=== PATIENT | female | born 1955 | race Caucasian/White ===

== ENCOUNTER 2020-10-16 15:32 | Emergency (ER) | payer OTHER, SELFPAY ==
[2020-10-16 15:50] VITALS: BP 119/68; PULSE 100; RESP 18; TEMP 36.9; O2SAT 98
[2020-10-16 15:51] VITALS: BP 119/68; PULSE 100; RESP 18; TEMP 36.9; O2SAT 98
--- NOTE | 2020-10-16 16:17 | ED.LOWEXIN ---
HPI - Extremity Injury (Lower) General Chief Complaint: Extremity Injury, Lower Stated Complaint: rt knee pain Time Seen by Provider: 10/16/20 16:08 Source: patient and RN notes reviewed Mode of arrival: ambulatory Limitations: no limitations History of Present Illness HPI Narrative: Patient presents today complaining of right knee pain since yesterday. Patient experienced severe right knee pain as she was kneeling on her bad. Denies any specific injury or trauma. Now, she has severe knee pain as she tries to bend her knee, especially when she is sitting down. Denies numbness or tingling. Pain is improved with extension. She currently rates her pain 2/10 and has been trying ice and icy hot without relief. She has tried no oral medication for symptoms. She cannot take NSAIDs due to decreased kidney function due to her diabetes. MD complaint: knee injury Related Data Home Medications Medication Instructions Recorded Confirmed albuterol sulfate INHALATION 10/16/20 alprazolam 10/16/20 aspirin [Aspirin Low Dose] 10/16/20 budesonide-formoterol [Symbicort] INHALATION 10/16/20 buspirone mg 10/16/20 calcium carbonate [Calcium 600] mg 10/16/20 cholecalciferol (vitamin D3) 10/16/20 [Vitamin D3] clopidogrel 10/16/20 doxycycline hyclate 10/16/20 duloxetine mg PO 10/16/20 fluoxetine mg 10/16/20 furosemide 10/16/20 glyburide mg 10/16/20 insulin glargine [Lantus Solostar SUBCUT 10/16/20 U-100 Insulin] levothyroxine 10/16/20 linaclotide [Linzess] mcg 10/16/20 lisinopril 10/16/20 multivitamin tablet 10/16/20 potassium chloride [Klor-Con M10] meq PO 10/16/20 simvastatin mg 10/16/20 torsemide mg 10/16/20 trazodone 10/16/20 zafirlukast mg 10/16/20 Allergies Allergy/AdvReac Type Severity Reaction Status Date / Time cephalexin [From Keflex] Allergy Unknown Verified 10/16/20 15:49 Review of Systems Review of Systems: CONSTITUTIONAL: Denies body aches, fever, chills, or sweats. EYES: Denies visual changes, redness, or discharge. ENT: Denies rhinorrhea, congestion, sore throat, or otalgia. CARDIOVASCULAR: Denies chest pain, palpitations, or edema. RESPIRATORY: Denies cough or dyspnea. GASTROINTESTINAL: Denies abdominal pain, nausea, vomiting, or diarrhea. GENITOURINARY: Denies dysuria or hematuria. SKIN: Denies rash, itching, or wounds. MUSCULOSKELETAL: Denies back pain, or myalgia.+ Right knee pain NEUROLOGIC: Denies headache, numbness, tingling, or weakness. PSYCH: Denies depression or anxiety. [facility] Past Medical History Medical History (Updated 10/16/20 @ 16:22 by Obdulia Fisher, [facility], ) Diabetes High cholesterol Hypothyroidism Comments At time of signature, I have reviewed and agree with nursing past medical, surgical, social and family history unless otherwise noted. Please see nursing chart for further information. There is no relevant family history pertinent to the presenting complaint Exam Narrative: GENERAL: Well-appearing, well-nourished, and in no acute distress. HEAD: Normocephalic, atraumatic. EYES: EOMI. No redness or drainage. Conjunctivae normal. ENT: Mucous membranes pink and moist. NECK: Normal AROM. CHEST: No respiratory distress. EXTREMITIES: Right knee: Tenderness with palpation of the patella and the medial and lateral joint lines. No edema noted. No erythema or ecchymosis noted. Pain with flexion. No pain with extension. Distal sensation intact. Capillary refill normal. Pedal pulse normal. SKIN: Warm, dry, no rash. Capillary refill normal. Normal skin turgor. NEURO: No focal deficits. Alert and oriented x3. Gait steady. PSYCH: Normal affect. No signs of depression or anxiety. Course Vital Signs Vital signs: Vital Signs Temperature 98.4 F 10/16/20 15:50 Pulse Rate 100 10/16/20 15:50 Respiratory Rate 18 10/16/20 15:50 Blood Pressure 119/68 10/16/20 15:50 Pulse Oximetry 98 10/16/20 15:50 Temperature 98.4 F
== END 2020-10-16 16:29 | disposition home or self-care (01) ==
PROVIDERS: Emergency Provider Nurse Practitioner
DX: M25.561 Pain in right knee (principal); E11.9 Type 2 diabetes mellitus without complications; E78.00 Pure hypercholesterolemia, unspecified; E03.9 Hypothyroidism, unspecified
CPT/HCPCS: 99202; G0463

== ENCOUNTER 2023-03-30 13:47 | Emergency (ER) | payer OTHER, SELFPAY ==
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
[2023-03-30 13:58] VITALS: BP 129/51; PULSE 77; RESP 18; TEMP 36.2; O2SAT 95
[2023-03-30 18:05] VITALS: BP 141/68; PULSE 74; RESP 18; TEMP 36.5; O2SAT 96
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
[2023-03-30 19:17] LABS: Basophils Percent Auto 0.6 % (0.2-1.2); Eosinophils Absolute Auto 0.2 K/mm3 (0-0.3); Eosinophils Percent Auto 2.5 % (0-4.4); Hematocrit 43.4 % (37.0-47.0); Hemoglobin 13.2 g/dL (12.0-15.0); Immature Granulocyte Absolute 0.05 K/mm3 (0.00-0.031); Immature Granulocyte Percent A 0.8 % (0-0.5); Lymphocytes Absolute Auto 1.28 K/mm3 (0.9-3.2); Lymphocytes Percent Auto 19.8 % (18.3-44.2); Mean Corpuscular HGB Conc 30.4 g/dl (32-36); Mean Corpuscular Hemoglobin 26.5 pg (26-34); Monocytes Absolute Auto 0.5 K/mm3 (0.1-0.6); Monocytes Percent Auto 7.3 % (2.6-8.5); Neutrophils Absolute Auto 4.5 K/mm3 (1.3-6.7); Platelet Count Result 221 k/mm3 (150-375); Red Blood Count 4.99 M/mm3 (4.2-5.4); Red Cell Distribution Width 14.7 % (11.5-14.5); White Blood Count 6.5 K/mm3 (4.5-10.0)
[2023-03-30 19:35] LABS: Alanine Aminotransferase 33 U/L (6-35); Albumin Level 4.4 g/dL (3.5-5.1); Alkaline Phosphatase 111 U/L (38-126); Anion Gap 8 mmol/L (8-16); Aspartate Amino Transferase 35 U/L (14-36); Bilirubin,Total 0.5 mg/dL (0.2-1.3); Blood Urea Nitrogen 20 mg/dL (7-17); Calcium 9.3 mg/dL (8.4-10.2); Carbon Dioxide 25 mmol/L (22-30); Chloride 105 mmol/L (98-107); Estimated CRCL calculation 56 ml/min; Estimated Glomerular Filt Rate > 60; Glucose 163 mg/dL (65-110); Potassium 4.1 mmol/L (3.4-5.0); Sodium 138 mmol/L (137-145)
[2023-03-30 19:53] LABS: Influenza A QL RT-PCR Negative (Negative); Influenza B QL RT-PCR Negative (Negative); RSV RNA, RT-PCR Negative (Negative); SARS-CoV-2 RNA PCR Negative (Negative)
[2023-03-30 21:14] VITALS: BP 140/66; PULSE 70; RESP 20; TEMP 36.6; O2SAT 98
== END 2023-03-30 21:15 | disposition home or self-care (01) ==
PROVIDERS: Emergency Provider Student in an Organized Health Care Education/Training Program
DX: S20.01XA Contusion of right breast, initial encounter (principal); S40.022A Contusion of left upper arm, initial encounter; Z11.52 Encounter for screening for COVID-19; E11.9 Type 2 diabetes mellitus without complications; E78.00 Pure hypercholesterolemia, unspecified; E03.9 Hypothyroidism, unspecified; M79.7 Fibromyalgia; Z86.73 Personal history of transient ischemic attack (TIA), and cerebral infarction without residual deficits; Z79.02 Long term (current) use of antithrombotics/antiplatelets; Z79.82 Long term (current) use of aspirin; Z79.4 Long term (current) use of insulin; V44.5XXA Car driver injured in collision with heavy transport vehicle or bus in traffic accident, initial encounter
CPT/HCPCS: 36415; 70450; 71260; 72125; 73030; 73060; 80053; 85025; 87637; 99284; Q9967

== ENCOUNTER 2025-01-30 09:01 | Emergency (ER) | payer OTHER, SELFPAY ==
--- OUTSIDE RECORDS SUMMARY | 2024-12-24 06:57 | XMS_ITS | Continuity of Care Document ---
Author Organization [facility] Address [address] [place] [address] Phone Care Team Providers Care Hadoop Administrator Name Role Phone Marty Farrell MD Unavailable Unavailable Allergies, Adverse Reactions, Alerts Substance Reaction Status Criticality OXYCODONE HCL Unknown Active No Information CEPHALEXIN MONOHYDRATE Unknown Active No In formation adhesive tape Rash Active No Information MONTELUKAST SODIUM purpura Active No Inform ation Medications Medication Instructions Dosage Effective Dates (start - stop) Status Comments TRELEGY ELLIPTA 200-62.5-25 INHALE 1 PUFF BY INHALATION ROUTE EVERY DAY AT THE SAME TIME EACH DAY - Active mometasone 0.1 % topical ointment apply by TOPICAL route every day a thin film to extremities and trunk as needed - Active Hizentra 4 gram/20 mL (20 %) subcutaneous solution infuse 16 Gram by Subcutaneous route every week via subcutaneous infusion pumpusing no more than 4 separate injection sites simultaneously - Active loratadine 10 mg tablet take 1 tablet by oral route every day 10 MG - Active duloxetine 60 mg capsule,delayed release take 1 capsule by oral route every day 60 MG - Active levothyroxine 125 mcg tablet take 1 tablet by oral route every day 125 MCG - Active Mucinex 600 mg tablet, extended release take 1 tablet by oral route every 12 hours as needed 600 MG - Active Flonase Allergy Relief 50 mcg/actuation nasal spray,suspension spray 1 - 2 spray by intranasal route every day in each nostril as needed 50-100 MCG - Active B12 Active 1,000 mcg chewable tablet - Active amlodipine 5 mg tablet take 1 tablet by oral route every day 5 MG - Active Lyrica 150 mg capsule take 1 capsule by oral route 2 times every day 150 MG - Active atorvastatin 40 mg tablet take 1 tablet by oral route every day 40 MG - Active albuterol sulfate HFA 90 mcg/actuation aerosol inhaler inhale 2 puff by INHALATION route every 4 - 6 hours as needed 2 puff - Active Plavix 75 mg tablet take 1 tablet by ora l route every day 75 MG - Active glyburide 2.5 mg tablet take 1 tablet by oral route every day before breakfast 2.5 MG - Active lisinopril 40 mg tablet take 1 tablet by oral route every day 40 MG - Active Lantus Solostar 100 unit/mL (3 mL) subcutaneous insulin pen inject by subcutaneous route as per insulin protocol 0.00 - Active DuoNeb 0.5 mg-3 mg(2.5 mg base)/3 mL solution for nebulization inhale 3 milliliter by nebulization route 4 times every day - Active Humulin R 100 unit/mL injection solution inject (0.05UNITS/KG) by intravenous route as a single rapid injection - Active Procedures Procedure Date Est (Level 4) OFFICE/OUTPATIENT VISIT No Complex e/m visit add on Est (Level 5) OFFICE/OUTPATIENT VISIT Az PF Pre/Post Bronchodlator Health Risk Assesment Patient Focused Az Mouth piece Est (Level 5) OFFICE/OUTPATIENT VISIT Oc Flow Volume Loop Mouth piece Est (Level 5) OFFICE/OUTPATIENT VISIT Fe Est (Level 5) OFFICE/OUTPATIENT VISIT Ju Est (Level 5) OFFICE/OUTPATIENT VISIT Ja Est (Level 5) OFFICE/OUTPATIENT VISIT Oc Est (Level 4) OFFICE/OUTPATIENT VISIT Au Est (Level 4) OFFICE/OUTPATIENT VISIT Ma Est (Level 4) OFFICE/OUTPATIENT VISIT Se Est (Level 4) OFFICE/OUTPATIENT VISIT Ap Health Risk Assesment Patient Focused Ap Perc Test Est (Level 4) OFFICE/OUTPATIENT VISIT Ma Est (Level 4) OFFICE/OUTPATIENT VISIT Se Est (Level 4) OFFICE/OUTPATIENT VISIT Ap Health Risk Assesment Patient Focused Oc Est (Level 4) OFFICE/OUTPATIENT VISIT Oc Est (Level 4) OFFICE/OUTPATIENT VISIT Ma Flow Volume Loop EVALUATE PT USE OF INHALER Mouth piece Health Risk Assesment Patient Focused Ma Est (Level 4) OFFICE/OUTPATIENT VISIT Ap Flow Volume Loop Mouth piece Est (Level 4) OFFICE/OUTPATIENT VISIT Ap Health Risk Assesment Patient Focused Ap Est (Level 4) OFFICE/OUTPATIENT VISIT Oc Health Risk Assesment Patient Focused Oc Flow Volume Loop Exhaled Nitric Oxide Tana Est (Level 4) OFFICE/OUTPATIENT VISIT Ap Flow Volume Loop Exhaled Nitric Oxide Tana Health Risk Assesment Patient Focused Ap Mouth piece Est (Level 4) OFFICE/OUTPATIENT VISIT Oc Flow Volume Loop Est (Level 4) OFFICE/OUTPATIENT VISIT Ap Est (Level 4) OFFICE/OUTPATIENT VISIT Ja Flow Volume Loop Est (Level 4) OFFICE/OUTPATIENT VISIT Oc Flow Volume Loop Est (Level 4) OFFICE/OUTPATIENT VISIT Ap Fiberoptic Rhiolaryngoscopy Est (Level 4) OFFICE/OUTPATIENT VISIT De Flow Volume Loop EVALUATE PT USE OF INHALER New (Level 5) OFFICE/OUTPATIENT VISIT Au Flow Volume Loop Exhaled Nitric Oxide Tana Mouth piece Pulse OX Perc Test Consult (Level 4) OFFICE CONSULTATION Ma Advance Directives Directive Yes / No Effective Date File Name No Information Encounters Encounter Description Practice Location Reason(s) For Visit Diagnoses Date Provider Providers Copied on Encounter [facility], [address] [place] [address], [place], [place], [address] [place] [address], tel:[phone] [facility] No Information 5 Bud Ferguson. [address] [place] [address] [address], [address], [place], [place], [facility], . tel:[phone] Referring Provider: Chiqui Gill, [address] [facility] [address], [place], [address]. tel:[phone] Est (Level 4) OFFICE/OUTPAT IENT VISIT [facility], [address] [place] [address], [place], [place], [address] [place] [address], tel:[phone] [facility] CVID and asthma (chief complaint) Body mass index (BMI) 40.0-44.9, adultCom variab immunodef w predom abnlt of B-cell nums & functnCOPDSol itary lung nodule 5 Bud Ferguson. [address] [place] [address] [address], [address], [place], [place], [facility], . tel:[phone] Referring Provider: Victor Hugo Kumar [facility] [address], [place], [address]. tel:[phone] Est (Level 5) OFFICE/OUTPAT IENT VISIT [facility], [address] [place] [address], [place], [address] [place] [address], tel:[phone] [facility] immunodeficie ncy (chief complaint) Body mass index (BMI) 40.0-44.9, adultCom variab immunodef w predom abnlt of B-cell nums & functnModerat e persistent asthmaSOB 5 Bud Ferguson. [address], [address], [place], [place], [facility], . tel:[phone] Referring Provider: Victor Hugo Kumar [facility] [address], [place], [address]. tel:[phone] Est (Level 5) OFFICE/OUTPAT IENT VISIT [facility], [address] [place] [address], [place], [place], [id number], tel:[phone] [facility] immunodeficie ncy (chief complaint) Body mass index (BMI) 40.0-44.9, adultCom variab immunodef w predom abnlt of B-cell nums & functnModerat e persistent asthmaOther allergic rhinitisEdema 4 Temnina Ferguson. [address], [address], [place], [facility], [place]. tel:[phone] Referring Provider: Chiqui Gill, [address] [facility] [address], [place], [address]. tel:[phone] [facility], [address] [place] [address], [place], [address] [place] [address], tel:[phone] [facility] No Information 4 Bud Ferguson. [address] [place] [address] [address], [address], [place], [facility], [place]. tel:[phone] Referring Provider: Chiqui Gill, [address] [facility] [address], [place], [address]. tel:[phone] Est (Level 5) OFFICE/OUTPAT IENT VISIT [facility], [address] [place] [address], [place], [place], [id number], [place] tel:[phone] [facility] allergy symptoms (chief complaint) Body mass index (BMI) 40.0-44.9, adultCom variab immunodef w predom abnlt of B-cell nums & functnModerat e persistent asthmaAcute sinusitis Fe- 4 Temprainocente Ferguson. [address], [address], [place], [facility], [place]. tel:[phone] Referring Provider: Chiqui Gill [address] [facility] [address], [place], [address]. tel:[phone] Est (Level 5) OFFICE/OUTPAT IENT VISIT [facility], [address] [place] [address], [id number], tel:[phone] [facility] CVID (chief complaint) Body mass index (BMI) 38.0-38.9, adultCom variab immunodef w predom abnlt of B-cell nums & functnCOPD 3 Alissa Herring. [address] [place] [address] [address], [place], [place], [id number] , [place]. tel:[phone] Referring Provider: Chiqui Pimentel, [address] [facility] [address], [place], [address] . tel:[phone] Est (Level 5) OFFICE/OUTPAT IENT VISIT [facility], [address] [place] [address], [id number], [place] tel:[phone] [facility] CVID (chief complaint) Body mass index (BMI) 39.0-39.9, adultCom variab immunodef w predom abnlt of B-cell nums & functnCOPDDys phonia 3 Alissa Herring. [address] [place] [address], [address], [place], [place], [id number] , [place]. tel:[phone] Referring Provider: Chiqui Gill, [address] [facility] [address], [place], [address]. tel:[phone] Est (Level 5) OFFICE/OUTPAT IENT VISIT [facility], [address] [place] [address], [place], [place], [id number], [place] tel:[phone] [facility] CVID (chief complaint) Body mass index (BMI) 40.0-44.9, adultCom variab immunodef w predom abnlt of B-cell nums & functnCOPD 2 Alissa Herring. [address] [place] [address], [address], [place], [address] [place] [address] , [place]. tel:[phone] Referring Provider: Chiqui Gill, [address] [facility] [address], [place], [address]. tel:[phone] Est (Level 4) OFFICE/OUTPAT IENT VISIT [facility], [address] [place] [address], [address] [place] [address], tel:[phone] [facility] CVID and rash (chief complaint) Com variab immunodef w predom abnlt of B-cell nums & functnBody mass index (BMI) 40.0-44.9, adultRash Aug-0 5- 2 Carlos Manuel Ly. [address] [place] [address], [address] [facility], [place], [address] [place] [address] , . tel:[phone] Referring Provider: Chiqui Gill, [address] [facility] [address], [place], [address]. tel:[phone] Est (Level 4) OFFICE/OUTPAT IENT VISIT [facility], [address] [place] [address], [place], [address] [place] [address], [place] tel:[phone] [facility] CVID (chief complaint) Com variab immunodef w predom abnlt of B-cell nums & functn Mar-0 2 Alissa Herring. [address] [place] [address], [place] [address], [place], [address] [place] [address] , . tel:[phone] Referring Provider: Chiqui Gill, [address] [facility] [address], [place], [address]. tel:[phone] Est (Level 4) OFFICE/OUTPAT IENT VISIT [facility], [address] [place] [address], [address] [place] [address], [place] tel:[phone] [facility] CVID (chief complaint) Body mass index (BMI) 39.0-39.9, adultCom variab immunodef w predom abnlt of B-cell nums & functn Sep-0 3-202 1 Alissa Herring. [address] [place] [address], [address], [place], [address] [place] [address] , . tel:[phone] Referring Provider: Chiqui Gill, [address] [facility] [address], [place], [address]. tel:[phone] Est (Level 4) OFFICE/OUTPAT IENT VISIT [facility], [address] [place] [address], [address] [place] [address], tel:[phone] [facility] allergy symptoms (chief complaint) Body mass index (BMI) 39.0-39.9, adultOther allergic rhinitisModer ate persistent asthma May- 1 Eliotleona Nima. [address] [place] [address], [place], [address] [place] [address] , . tel:[phone] Referring Provider: Chiqui Gill, [address] [facility] [address], [place], [place], [facility]. tel:[phone] Est (Level 4) OFFICE/OUTPAT IENT VISIT [facility], [address] [place] [address], [address] [place] [address], tel:[phone] [facility] CVID (chief complaint) Com variab immunodef w predom abnlt of B-cell nums & functnCOPDCon stipation Apr-0 1 Alissa Nima. [address] [place] [address], [address] [place] [address] , . tel:[phone] Referring Provider: Chiqui Gill, [address] [facility] [address], [place], [address]. tel:[phone] Est (Level 4) OFFICE/OUTPAT IENT VISIT [facility], [address] [place] [address], [address] [place] [address], tel:[phone] [facility] CVID (chief complaint) Com variab immunodef w predom abnlt of B-cell nums & functn Sep-0 0 [facility]. [address] [place] [address], [address] [place] [address] , . tel:[phone] Referring Provider: Chiqui Gill, [address] [facility] [address], [place], [address]. tel:[phone] Est (Level 4) OFFICE/OUTPAT IENT VISIT [facility], [address] [place] [address], [address] [place] [address], tel:[phone] [facility] CVID (chief complaint) Com variab immunodef w predom abnlt of B-cell nums & functn 0 Borts Nima. [address] [place] [address], [address], [place], [place], [id number] , [place]. tel: [phone] Referring Provider: Chiqui Gill, [address] [facility] [address], [place], [address]. tel:[phone] Est (Level 4) OFFICE/OUTPAT IENT VISIT [facility], [address] [place] [address], [address] [place] [address], tel:[phone] [facility] CVID (chief complaint) Com variab immunodef w predom abnlt of B-cell nums & functnModerat e persistent asthma 9 Alissa Herring. [address] [place] [address], [address] [place] [address], [address] [place] [address] , [place]. tel:[phone] Referring Provider: Chiqui Gill, [address] [facility] [address], [place], [address]. tel:[phone] Est (Level 4) OFFICE/OUTPAT IENT VISIT [facility], [address] [place] [address], [id number], [place] tel:[phone] [facility] CVID (chief complaint) COPD 9 Alissa Herring. [address] [place] [address], [address], [address] [place] [address] , . tel:[phone] Referring Provider: Chiqui Gill, [address] [facility] [address], [place], [address]. tel:[phone] Est (Level 4) OFFICE/OUTPAT IENT VISIT [facility], [address] [place] [address], [id number], tel:[phone] [facility] COPD/CVID (chief complaint) Acute bronchitis, unspecifiedCo m variab immunodef w predom abnlt of B-cell nums & functn 9 [facility]. [address] [place] [address], [place] [address], [place], [place], [id number] , [place]. tel:[phone] Referring Provider: Chiqui Gill, [address] [facility] [address], [place], [address]. tel:[phone] Est (Level 4) OFFICE/OUTPAT IENT VISIT [facility], [address] [place] [address], [id number], [place] tel:[phone] [facility] CVID, chronic sinusitis and COPD (chief complaint) Com variab immunodef w predom abnlt of B-cell nums & functnCOPD 0 9 Alissa Herring. [address] [place] [address], [place] [address], [place], [place], [id number] , [place]. tel:[phone] Referring Provider: Chiqui Gill, [address] [facility] [address], [place], [address]. tel:[phone] [facility], [address] [place] [address], [id number], tel:[phone] [facility] No Information 9 [facility]. [address] [place] [address], [address], [id number] , [place]. tel:[phone] Referring Provider: Chiqui Gill, [address] [facility] [address], [place], [address]. tel:[phone] Est (Level 4) OFFICE/OUTPAT IENT VISIT [facility], [address] [place] [address], [id number], tel:[phone] [facility] CVID and COPD (chief complaint) Chronic sinusitis, unspecifiedCO PDCom variab immunodef w predom abnlt of B-cell nums & functn 0 8 Alissa Herring. [address] [place] [address], [address], [place], [address] [place] [address] , . tel:[phone] Referring Provider: Chiqui Gill, [address] [facility] [address], [place], [address]. tel:[phone] Est (Level 4) OFFICE/OUTPAT IENT VISIT [facility], [address] [place] [address], [id number], [place] tel:[phone] [facility] CVID (chief complaint) Com variab immunodef w predom abnlt of B-cell nums & functnCOPD 8 Alissa Herring. [address] [place] [address], [address], [address] [place] [address] , . tel:[phone] Referring Provider: Chiqui Gill, [address] [facility] [address], [place], [address]. tel:[phone] Est (Level 4) OFFICE/OUTPAT IENT VISIT [facility], [address] [place] [address], [id number], [place] tel:[phone] [facility] CVID (chief complaint) Com variab immunodef w predom abnlt of B-cell nums & functnCOPD 7 Alissa Herring. [address] [place] [address], [address], [address] [place] [address] , [place]. tel:[phone] Referring Provider: Chiqui Gill, [address] [facility] [address], [place], [address]. 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 [address] [place] [address], [address] [place] [address] , . tel:[phone] Referring Provider: Nima Orellana, [address] [place] [address], [place], [place], [address] [place] [address] . tel:[phone] Est (Level 4) OFFICE/OUTPAT IENT VISIT [facility], [address] [place] [address], [address] [place] [address], [place] tel:[phone] [facility] nasal drainage and cough (chief complaint) Chronic sinusitis, unspecifiedCO PDCom variab immunodef w predom abnlt of B-cell nums & functn 7 Alissa Herring. [address] [place] [address], [address] [place] [address] , . tel:[phone] Referring Provider: Nima Orellana, [address] [place] [address], [place], [place], [address] [place] [address] . tel:[phone] Est (Level 4) OFFICE/OUTPAT IENT VISIT [facility], [address] [place] [address], [address] [place] [address], [place] tel:[phone] [facility] CVID (chief complaint) Com variab immunodef w predom abnlt of B-cell nums & functnCOPD 6 Alissa Herring. [address] [place] [address], [address] [place] [address] , [place]. tel:[phone] Referring Provider: Nima Orellana, [address] [place] [address], [place], [place], [address] [place] [address] . tel:[phone] Est (Level 4) OFFICE/OUTPAT IENT VISIT [facility], [address] [place] [address], [address] [place] [address], tel:[phone] [facility] CVID, chronic sinusitis, asthma (chief complaint) Com variab immunodef w predom abnlt of B-cell nums & functnModerat e persistent asthma 6 Alissa Herring. [address] [place] [address], [address] [place] [address] , . tel:[phone] Referring Provider: Nima Orellana, [address] [place] [address], [place], [address] [place] [address] . tel:[phone] Est (Level 4) OFFICE/OUTPAT IENT VISIT [facility], [address] [place] [address], [address] [place] [address], tel:[phone] [facility] CVID (chief complaint) Chronic sinusitis, unspecifiedCo m variab immunodef w predom abnlt of B-cell nums & functnModerat e persistent asthma 5 Alissa Herring. [address] [place] [address], [address] [place] [address] , [place]. tel:[phone] Referring Provider: Nima Orellana, [address] [place] [address], [place], [address] [place] [address] . tel:[phone] [facility], [address] [place] [address], [address] [place] [address], [place] tel:[phone] [facility] Com variab immunodef w predom abnlt of B-cell nums & functn 5 Alissa Herring. [address] [place] [address], [address] [place] [address] , [place]. tel:[phone] Referring Provider: Nima Orellana, [address] [place] [address], [place], [place], [address] [place] [address] . tel:[phone] New (Level 5) OFFICE/OUTPAT IENT VISIT [facility], [address] [place] [address], [id number], tel:[phone] [facility] Asthma (chief complaint) Common variable immunodeficie ncyAsthma, unspecifiedDi abetes mellitus without mention of complication, type II or unspecified type, not stated as uncontrolled 5 Alissa Herring. [address] [place] [address], [address], [id number] , . tel:[phone] Referring Provider: Nima Orellana, [address] [place] [address], [place], [address] . tel:[phone] Consult (Level 4) OFFICE CONSULTATION [facility], [address] [place] [address], [id number], tel:[phone] [facility] asthma (chief complaint)all ergies (chief complaint) ASTHMA,UNSPEC IFIED TYPE, UNSPECIFIEDDi abetes mellitus without mention of complication, type II or unspecified type, not stated as uncontrolled 1 Alissa Herring. [address] [place] [address], [place] [address], [place], [place], [id number] , . tel:[phone] Referring Provider: Serg Ureña, [address] [place] [address], [place], [address]. tel:[phone] Family History Family Member Type Diagnosis Age At Onset Father Problem Cardiovascular disease Mother Problem Cancer, cervical Problem Family history o f No history of immune deficiency or immune system problems Immunizations Vaccine Date Status Comments Pneumococcal polysaccharide PPV23 administered Source: Source Unspe cified SARS-COV-2 (COVID-19) vaccin e, mRNA, spike protein, LNP, preservative free, 30 mcg/0.3mL dose (Pfizer) administered Source: Source Unspe cified SARS-COV-2 (COVID-19) vaccin e, mRNA, spike protein, LNP, preservative free, 30 mcg/0.3mL dose (Pfizer) administered Source: Source Unspe cified SARS-COV-2 (COVID-19) vaccin e, mRNA, spike protein, LNP, preservative free, 30 mcg/0.3mL dose ([employer]) administered Source: Source Unspe cified Fluarix administered Note: Luis Alberto badillo ; Source: Other Provider Fluarix administered Source: So urce Unspecified Influenza, injectable, quadrivalent, preservative free, 3 yrs or older administered Source: Source Unspe cified Payers Payer name Insurance type Covered libertarian ID Pillo duff(s) Mehreen MELÉNDEZ [id number] Social History Type Description Quantity Date Captured Comments Sex Female Smoking Status No Information Chief Complaint And Reason For Visit No Information Reason For Referral Reason For Referral No Information Plan Of Treatment Date Type Action Status Goal Tobacco cessation counseling completed Goal Tobacco cessation counseling completed Goal Tobacco cessation counseling completed Goal Lifestyle education regardin g diet completed Appointment Sarah Newby 6 Mo F/u VYASRashaad MONTIEL Future Order: Lab Order IgG Serum ([id number]), Sent on: Sent Future Order: Lab Order Immunogl obulin G, Serum ([id number]), Ordered on: Ordered Future Order: Lab Order CBC With Differential ([id number]), Ordered on: Ordered Future Order: Lab Order Immunogl obulin G, Serum ([id number]), Ordered on: Ordered History Of Present Illness Encounter Date Complaint History Of Prese nt Illness CVID and asthma 68 yo here for f /u CVID and moderate persistent asthma. She is on Hizentra 16 grams qweek. She is a former patient of Dr. Maxwell, but her initial visit with me was on 04/11/23. JEREMY=11/26/23. Prior prick skin testing on 05/27/20 was entirely negative with 3+ histamine controls.Has been having problems with cough and SOB for the past several months. CT Chest done in mid-September - subsolid nodule. F/U PET scan below. Followed by Pulmonary (Dr. Mas at [facility]). Has also had negative LE dopplers. Also had normal ECHO, Nuclear Medicine Stress test. C in 02/2024 with non-obstructive coronary disease (see below).CVID - She continues on Hizentra 16 grams qweek (on for the past 8-9 years). Uses benadryl prior to infusion. She reports no problems/reactions with infusions. Reports UTI x 1 since last visit - treated with Macrobid.Asthma/obstructive lung disease - With regards to asthma, she is using Trelegy 200 1 inh qd. She is using albuterol about once to twice per day. Symptoms are usually worse in the winter. Nocturnal sx are <2x/mo. No ED visits or hospitalizations for asthma. She has not required systemic steroids for asthma. She had a prior reaction to Singulair (bruising) so does not use it. She was on Zafirlukast in the past but stopped it about 1 year ago. 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 The change in FEV1=5% and 100 cc which is not significant for reversibility.Spirometry - 11/26/23 - 76%/77%/0.76/73%Spirometry - 07/01/18 - 69%/62%/0.69/40%Spirometry - 06/04/18 - 64%/58%/0.69/50%PET Tumor Image 10/16/24 - RUL nodule is not FDG avid. Groundglass nodules are usually not FDG avid and CT follow-up is recommended. No evidence of metastatic disease.CT Chest 09/28/2024 - no evidence of PE. New predominantly subsolid nodule within the R lung apex that measures up to 1.5 cm. There is a question of a tiny solid component. A malignancy is not excluded. A tiny 6 mm RLL nodule is unchanged. No acute finding in the abdomen or pelvis.CT Chest with Contrast - 6 mm nodule within the RLL - f/u in 6-12 months recommended. No adenopathy detected in the chestLHC 02/29/24 - nonobstructive coronary disease in the right dominant circulation, normal LV end-diastolic filling pressureECHO 01/05/24 - LV - mild increase in wall thickness c/w mild LVHNormal global systolic function, EF=63%LV diastolic function parameters are normalNormal Left atrium sizeNormal RV size and systolic functionMyocardial Perfusion scan . no evidence of ischemia2. atypical defect likely secondary to apical thickening3. LV systolic function is low normal4. EKG shows no evidence of ischemia during stress testPulmonary Note 01/04/24 ([facility] - post-bronchodilator FEV1/FVC=0.65, FVC=85% (2.22 L), FEV1=70% (1.43 L), TLC=90% (4.18 L), PU=733% (2.25 L), MSLP=197%CXR - 12/14/23 - Hyperinflation, NADLE Dopplers (10/08/23) 1. No evidence of deep or superficial vein thrombosis involving left lower extremity2. No evidence of deep vein thrombosis involving the R common femoral vein.Labs 11/27/23BNP=72 (normal <125) Labs 10/08/23BNP=70 (normal <125)03/17/24CBC with diff - WBC=6.1, H/H=12.1/38.5, ZPD=449KLUV - BUN/Cr=20/1.15, AST=18, ALT=22TSH=5.54, FT4=0.910/CBC with diff - WBC=5.0, H/H=12.8/40.9, UAV=339NAAF=YKU/Cr=19/0.97, ALT=20, QUC=03JjQ=3307 mg/dl10/31/2326EoK=4952RsX=14AwB=74DjV Levels04/16/2374=83998//79=23510/06/03=1 209374=14015/04/0304=950282/02=410 8CBC with diff04/16/23 - normal - WBC=8.1, H/H=13.2/40.7, ZJY=902A33// - normalCM04/16/23 - BUN=27, Cr=1.13, ALT=20, AST=17, o/w normal04/16/2389EeR=5136, IgA=82, IgM=22, IgE=67 immunodeficiency 68 yo here for f/u CVID and moderate persistent asthma. She is on Hizentra 16 grams qweek. She is a former patient of Dr. Maxwell, but her initial visit with me was on 04/11/23. JEREMY=11/26/23. Prior prick skin testing on 05/27/20 was entirely negative with 3+ histamine controls.Since her last visit, she developed a new cough. She had a CT of the Chest at the end of May ([facility], ordered by PCP) that demonstrated a 6mm nodule at the base of R lung. Follow-up CT of the Chest scheduled for 11/2024.She complained of LE edema at her last visit. Had negative LE dopplers. Also had normal ECHO, Nuclear Medicine Stress test. LHC in 02/2024 with non-obstructive coronary disease (see below).CVID - She continues on Hizentra 16 grams qweek (on for the past 8-9 years). Uses benadryl prior to infusion. She reports no problems/reactions with infusions. No recent infections/antibiotic use.Asthma/obstructive lung disease - With regards to asthma, she is using Trelegy 200 1 inh qd. She is using albuterol about once to twice per day for the past 3-4 months. Symptoms were worse in the winter. Nocturnal sx are about 1 x/week. No ED visits or hospitalizations for asthma. She has not required systemic steroids for asthma. She had a prior reaction to Singulair (bruising) so does not use it. She was on Zafirlukast in the past but stopped it about 1 year ago. 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 Chidi Minaya - [facility]).ROS: reports dyspnea on exertion - usually with 200-300 feet.Lab/Radiology Review:ACT=9 (06/23/24)CT Chest with Contrast - 6 mm nodule within the RLL - f/u in 6-12 months recommended. No adenopathy detected in the chestLHC 02/29/24 - nonobstructive coronary disease in the right dominant circulation, normal LV end-diastolic filling pressureECHO 11/23/24 - LV - mild increase in wall thickness c/w mild LVHNormal global systolic function, EF=63%LV diastolic function parameters are normalNormal Left atrium sizeNormal RV size and systolic functionMyocardial Perfusion scan . no evidence of ischemia2. atypical defect likely secondary to apical thickening3. LV systolic function is low normal4. EKG shows no evidence of ischemia during stress testPulmonary Note 01/04/24 ([facility])[place] - post-bronchodilator FEV1/FVC=0.65, FVC=85% (2.22 L), FEV1=70% (1.43 L), TLC=90% (4.18 L), IR=943% (2.25 L), ZGOU=921%CXR - 12/14/23 - Hyperinflation, NADLE Dopplers (10/08/23) 1. No evidence of deep or superficial vein thrombosis involving left lower extremity2. No evidence of deep vein thrombosis involving the R common femoral vein.Labs 11/27/23BNP=72 (normal <125) Labs 10/08/23BNP=70 (normal <125)03/17/24CBC with diff - WBC=6.1, H/H=12.1/38.5, LBL=537QAFI - BUN/Cr=20/1.15, AST=18, ALT=22TSH=5.54, FT4=0.910/CBC with diff - WBC=5.0, H/H=12.8/40.9, GBB=144MAXI=QVA/Cr=19/0.97, ALT=20, OPU=33UqX=9759 mg/dl10/31/2307KlR=4103FwC=84IkJ=91MgV Levels04/16/2304=93188/95=79569=1 209352=92922//59=722751/81=129 8CBC with diff04/16/23 - normal - WBC=8.1, H/H=13.2/40.7, GVI=239Y34// - normalCM04/16/23 - BUN=27, Cr=1.13, ALT=20, AST=17, o/w normal04/16/2390DfY=2300, IgA=82, IgM=22, IgE=67Spirometry - 11/26/23 - 76%/77%/0.76/73%Spirometry - 07/01/18 - 69%/62%/0.69/40%Spirometry - 06/04/18 - 64%/58%/0.69/50% immunodeficiency 68 yo here for f/u CVID and asthma. She is on Hizentra 16 grams qweek. She is a former patient of Dr. Maxwell, but her initial visit with me was on 04/11/23.CVID - Since her last visit, she had an episode of pneumonia on her birthday ([birth year]). She was seen in [facility] and reports she had a CXR done that revealed pneumonia. Her symptoms included low-grade fever, chills, and cough with sputum production. She was treated with oral antibiotics and she reports her symptoms went back to baseline after 3 weeks. She did have COVID testing done at the time that was negative x 3. She continues on Hizentra 16 grams qweek (on for the past 8-9 years). Uses benadryl prior to infusion.With regards to asthma, she reports symptoms are well controlled since restarting Trelegy 2 weeks ago. She was off Trelegy for about 2 months due to cost. Since restarting Trelegy, Daytime sx < 2x/wk, QUANG use < 2x/wk (since restarting Trelegy 2 weeks ago), nocturnal sx < 2x/mo. No ED visits or hospitalizations for asthma. She continues on Trelegy 200 and albuterol prn. She is trying to get it through the [employer] patient support program. She had a prior reaction to Singulair (bruising) so does not use it. She was on Zafirlukast in the past but stopped it about 1 year ago. 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 but swelling on the right side has been more recent), +compression stockings, +h/o ANDREA on BIPAP - does report problem with tubing falling off, she is on amlodipine. She has an appt with her PCP on December 13.Lab Review:IgG Levels04/16/2371=56014/70=65731/06/03=1 2093/05/0382=37089//02=701121/09=621 8CBC with diff04/16/23 - normal - WBC=8.1, H/H=13.2/40.7, EKU=340V02/06/13 - normalCM04/16/23 - BUN=27, Cr=1.13, ALT=20, AST=17, o/w normal04/16/2343PrT=7345, IgA=82, IgM=22, IgE=67Spirometry - 07/01/18 - 69%/62%/0.69/40%Spirometry - 06/04/18 - 64%/58%/0.69/50% Fe-2023 allergy symptoms 67 yo here for f/u CVID and asthma. She is on Hizentra 16 grams qweek. She is a former patient of Dr. Maxwell and was last seen on 02/18/22.She was on Symbicort at her last visit but changed to Trelegy 200 (with samples due to cost). She reports doing quite well since her last visit. She has had very few infections and is tolerating Hizentra 16 grams qweek. She does use benadryl prior to infusions, but no other pre-treatment. She started replacement immunoglobulin therapy about 10 years ago and has been on Hizentra for the past 8 years. She states prior to starting replacement Ig therapy, she had frequent episodes of sinusitis, otitis media and pneumonias. She had frequent hospitalizations for pneumonia. She also reports having a laryngeal fungal infection treated by Dr. Stuart (ENT). She is currently on doxycycline for a sinus infection treated by her primary care - she started therapy a few days ago and reports she is improving.With regards to asthma, she reports symptoms are well controlled. Daytime sx < 2x/wk, QUANG use < 2x/wk, nocturnal sx < 2x/mo. No ED visits or hospitalizations for asthma. She continues on Trelegy 200 and albuterol prn. She had a prior reaction to Singulair (bruising) so does not use it. She was on Zafirlukast in the past but stopped it about 1 year ago. 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 She was initially diagnosed with CVID in [address] Pinto (Pulmonary) following a bout of recurrent pneumonias. Her IgG was 148 mg/dL along with low IgA and IgM levels. He started her on IVIG in 2012. She had an anaphylactic reaction to her first home infusion, so she was changed to weekly infusions with Gammagard Liquid at [facility] along with pre-medication with 60 mg of Solumedrol prior to each weekly infusion. Her therapy was interrupted for 6 weeks in 2013 and a trough level of IgG was 643 mg/dL at the end of the six weeks. She resumed Ig infusion in July 2013 with 45 grams weekly, equivalent to 1700 mg/dL every 4 weeks. She did not have levels checked for some time, and an HRCT of the chest did not demonstrate bronchiectasis. [place] are for management of [place] in [place] [address] Pinto was leaving the area. At the time of her transfer to [place] she had poorly controlled diabetes and obesity which I believe was facilitated the weekly use of SoluMedrol. I changed her therapy to 15 grams of Hizentra weekly, and her IgG level on this dose was 1002 mg/dL. Administration of steroids for her infusions was discontinued. The Hizentra dose was increased to 16 grams in 2016. Her last IgG level was 1071 mg/dL in February of 2022. She also had a diagnosis of asthma/COPD that was poorly controlled and I prescribed Symbicort bid, Spiriva and Zafirlukast 20 mg bid. She improved but she did subsequently experience an exacerbation in November 2020 and was hospitalized for pneumonia. Her pulmonary status has recently been stable on Zafirlukast 20 mg bid and Trelegy 100 daily. She has had difficulty using the latter regularly due to cost. 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 She is not working over the summer and has applied for unemployment benefits but has not yet received them. Her had a stroke and is unable to push a mower so she purchased a riding mower for him and that has added further debt. She does not sleep well at night due to financial worries. In addition to the Trelegy she is no longer on Victoza due to the cost. She reports that her last Hgb A1c was over 8. She loves her job on the school bus. She feels that it gives her a purpose and she looks forward to returning to the job in September. Her past history is otherwise remarkable for a TIA in 2020. She is now on Plavix. She recently has been working in the yard and got poison pranav. The rash is resolving simply with calamine lotion. CVID She returns for a follow up visit. She was last seen in November with a complaint of cough. She was on lisinopril at the time and subsequently discussed with Dr. Gill whether it might be a factor. She was given benzonatate and the cough resolved. She has remained on the lisinopril without cough. She recently had antibiotics and prednisone for respiratory infection. She improved. She reports that in the past few days she has been hoarse. She has not had fever, sore throat, cough, purulent nasal discharge or sputum production. She denies symptoms of reflux. She remains on Hizentra 16 grams weekly. She had lab testing on January 16 that demonstrated increased levels of metamyelocytes on the peripheral smear (1% metamyelocytes; 62 cell/microliter). Her absolute WBC, hemoglobin and platelets were normal. She is scheduled to have this repeated next week. (It is not clear to me if she had an acute infection at the time that CBC was performed.) She has no other new complaints. She is close to getting her certification to drive the school bus. She is happy that the cost of her insulin will go down, but concerned still about the cost of Trelegy. She feels it is working well. She is close to running out. CVID She returns for a 6 month follow up visit. She remains on Hizentra 16 grams weekly and reports no problems with her infusions. Her last infection was in November of 2020 when she had pneumonia. She reports no infections since then. She describes that she has had a lot of coughing a lot for the past month. She has had some shortness of breath and wheezing. Her cough is not productive. She is using Symbicort bid. She has 3 doses left and is not sure if she can afford to get more. She was getting it for $8 a canister at a [facility], but she has now returned to work as a bus girl and will no longer be able to get medications from the clinic. She is not sure if she can afford more Symbicort. CVID and rash Her last visit w as on 04/15/[address] Maxwell, her primary garage helper. She is on Hizentra 16 grams subcutaneously administered weekly at home. She has not missed any infusions. She has not had any interval antibiotic courses. She returns today due to a new rash. She started to have a rash on her left calf that is red, raised, and itchy about 4 days ago. The rash started as 5 tiny red dots, and has become raised and a larger triangular patch. The rash has also spread to her face. The rash is not painful or tender. The rash on her face has been oozing some thick drainage that is not purulent. She had a similar rash on her right anterior lower leg in June or July 2021. In that episode of rash, it also spread to her face. She used Benadryl orally and Benadryl cream, which seemed to help the rash.She has tried not topical steroids. She has not changed personal care products or had any known recent exposures to poison pranav. She has not seen dermatology or had a skin biopsy. CVID She returns for a 6 month follow up visit. She is on Hizentra 16 grams weekly. She has not missed any infusions. She was treated for pneumonia in November of last year. She was given oral steroids at that time. She had Covid 19 infection in February of this year. She had conjunctival inflammation, cough and fatigue. She was given biologic infusion through [facility]. She felt much improved after the infusion.Her diabetes has been yucky, awful. She describes that she has not been eating right or exercising. She likes to swim and plans to do so. Her asthma is currently controlled. She has not had to use Duoneb for at least 2 years. She remains on Symbicort bid and Spiriva. She is no longer on Prozac.She is fully vaccinated for Covid 19 and she had a flu vaccine at [facility] in [place]. CVID She returns for a follow up regarding her CVID. She was last seen in May of this year and requested allergy testing at that time. It was negative. She recently saw Dr. Bella for her COPD. He prescribed antibiotics and prednisone. She has been off for a few days. Now that she is off that she is leaking from her nose and eyes. Nasal spray has not helped. Drainage has made her cough and choke. She attributes this to some irritants she has been exposed to. She had a TIA in August or September. Her speech and gait were affected. She had brain imaging that ruled out a stroke. She is now on Plavix. At her last visit she complaints of abdominal symptoms, mostly of constipation. She took Colace and her GI symptoms resolved. She obtained a 3rd dose of Covid 19 vaccine last week. allergy symptoms She scheduled claudette limon's visit for allergy testing and has concerns about possible food allergies. She has had a lot of coughing, eyes and nose running. She also thinks that something is going on with food. She had some Dum Dum suckers at her mother's house. She started choking and coughing and spitting. She has had this with other foods, but cannot recall what foods have triggered it. She has had similar choking from drinking water before as well. She has also had a lot of sinus problems. She put all of her symptoms on a Facebook Group and it was suggested she use NeilMed Sinus Rinse. She has started to use it and it has helped. She is not spending much time outdoors. She gets choked up outside. She coughs up mucus--it is clear white.She is on Symbicort bid and Zafirlukast bid. She is on Flonase 2 to 3 times a day and Zyrtec (prior to the past week). 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 She reports that her CVID and Ig infusions are going well. She has been dealing with a different problem lately--Constipation. She has used Miralax, prune juice, stool softeners, Fleet enema. Did not help. . Stomach is distended. She also has some low back pain that she thinks is related. She describes a lot of indigestion and is burping a lot. She inquires if it could be related to CVID. Last colonoscopy was a year ago and she had a single polyp. She had a flare of COPD in Mar-- was treated with prednisone and doxycycline. She continues to have Anxiety and is currently no longer on xanax and seeing new psychiatrist. CVID She returns for a 6 month follow up visit. She remains on 16 grams of Hizentra weekly. She has not missed any doses. She has not had any respiratory infections or flare of her asthma/COPD and feels she is doing very well. She remains on Symbicort and zafirlukast bid. She recently used her Duoneb a single time. She is not sure what triggered her symptoms, but overall she reports that she has needed a bronchodilator rarely. She obtained her flu vaccine at [facility] on Sunday. She has been sheltering at home, and wears a mask on the few occasions that she is outside of her home. CVID This visit takes place over telehealth video platform ([email or web address]) with the patient in their homeThis is a 6 month follow up regarding her CVID. She is currently on Hizentra 16 grams weekly and her most recent serum IgG level on this dose was 1188 in November of 2018. She currently participates with [employer] and monitors her vitals daily. She reports that her weight has fluctuated.She has not missed any doses of Hizentra. She currently is finishing antibiotics for a UTI. She recently had a flare of asthma that she related to exposure to tree pollen. She was treated with a short course of prednisone and improved. She is now checking the pollen counts daily.She remains on Symbicort and zafirlukast bid. She no longer uses Spiriva. CVID She returns for a 6 month follow up regarding he CVID. She reports that she has been infection free for the past 6 months and has felt better than ever with regard to her respiratory health. Her main complaint is that she has a pinched nerve in her back. Her last IgG level was 1300 in March 2017. She does not wish to lower her dose of Ig therapy. She is on Hientra 16 grams weekly. She has had no complications or difficulty with her infusions.She remains on Symbicort twice a day, Zafirlukast, and Spiriva. CVID She was seen a m onth ago with respiratory infection. She was treated with doxycycline and then clarithromycin. She has been off antibiotics for over one week, but she continues to have wheezing and coughing. She remains on Symbicort 160 bid and zafirlukast twice a day. She reports that her nebulizer does not give her much relief. She is on lisinopril for hypertension and has not had trouble with this in the past. COPD/CVID She was seen in [facility] last week with respiratory illness (cough and dyspnea). She reported to me on the phone that they did not even take her to an exam room and did not examine her, but she was given a course of prednisone. She completed the prednisone yesterday but still does not feel better. I reviewed her [facility] record and she was noted to be afebrile, had normal oxygenation, and a normal CXR and labs. There was no objective evidence of bacterial infection or respiratory distress or acute cardiac disease based on the record. She has not contacted Pulmonary or Dr. Gill, but indicated she thought she should contact me since I take care of her immune system. I spoke with her yesterday, and as she was still subjectively distressed I advised her to be seen.Today she describes that she has severe fatigue, chills and is sick. She is blowing yellow mucus out of her nose. Her chest hurts and is tight. She is coughing hard and it tyler and hurts her chest.She was on 5 days of prednisone (completed yesterday). Her blood sugar was over 400, but this am was back to 131. CVID, chronic sinusitis and COPD She returns for a 6 month follow up visit. She mostly stayed indoors over the winter and did not have any respiratory infections or flare of COPD. She remains on Hizentra 16 grams weekly. She has had no missed doses or interruption of therapy. There have been shortages of some products but not of hers. Her most recent IgG level was over 1300 mg/dL in March on this dose. She is on gabapentin for her headaches and that seems to be working well.She remains on Symbicort bid and zafirlukast bid. She has not been on prednisone in the past 6 months. She has not had to use her Duoneb in several months.She has gained weight since her last visit. She is not exercising but plans to resume swimming at the [employer]. CVID and COPD She returns for a 6 month follow up. About a month ago she got painful knots on the back of her neck. She saw Dr. Gill and had blood tests. She had elevated sed rate. Then she developed a lot of sinus drainage and a sinus infection and she was given doxycycline for 10 days. She got better, but then she was still left with a lot of drainage. She was instructed to add Flonase nasal spray and she used Zyrtec 10 mg twice a day. She was also taking Mucinex twice a day. That has helped, but she continues to have coughing due to copious thick drainage. The mucus is currently clear to white. The knots on the back of her neck still hurt, and her ears also hurt. She remains on Symbicort 160 bid and Zafirlukast twice a day. She is using her ProAir and her nebulizer frequently. She has used it during the night as well. Her Hgb A1C has been improved. CVID She returns for a 6 month follow up visit. She has had a healthy winter. She stayed indoors most of the winter out of concern of the flu epidemic. She remains on 16 grams of Hizentra every week and has tolerated this well. She had had no adverse reaction. She has not had any exacerbation of her COPD. She remains on Symbicort 160 twice a day and zafirlukast twice a day. She obtained a Shingrix vaccine and will receive her second dose in July. CVID She returns for a 6 month follow up visit. She has not had any respiratory infections in the interim. She has had some UTIs. She remains on 15 grams of Hizentra every week. Her had cardiac bypass surgery in September, and since then they have modified their diet. She has lost weight by eating more healthy. She no longer eats any fried foods. She will soon have [employer] and will be able to join the [facility] [employer]. Her A1C has gone from 9.6 to 7.2.She remains on Symbicort 160 twice a day. She uses her bronchodilator once a day and uses her DuoNeb about once a week. She has not had any exacerbations or oral steroids in the past 6 months She obtained her flu vaccine in October. CVID She returns for a follow up visit regarding her CVID. She remains Hizentra 16 grams weekly. She has had no infections since her sinusitis in February. She is pleased with her overall control. COPD and chronic sinusitis She h as recently changed to Breo from Symbicort. She ran out of the latter and Dr. Gill provided her with a sample of the Breo. She has not had any acute eexacerbation of symptoms in recent months. She is not exercising. She cannot afford membership at the [facility]. Her weight has been stable. nasal drainage and cough She has had nasal drainage for a long time. She describes that it is very thick. It will get so bad that she will start choking and coughing . She will then use her nebuizer. She feels that it helps to break it up, and then she can cough it up. The nebulizer also helps her to get it out of her nose. She describes it as clear but very thick and rubbery. He sense of smell is chronically diminished. She had had a lot of nasal injuries in the past and she attributes her diminished smell to this. She has been wheezing a lot. She is on Symbicort 160 bid, zafirlukast bid, Duoneb prn, fluticasone nasal spray, and cetirizine bid.She remains on Hizentra weekly. She is very pleased with this and is tolerating it well. She has lost 20 pounds since changing from Gammagard to Hizentra (due to no longer using corticosteroids for pre-medication). 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 She is on Hizentra 15 grams weekly and has been free of infection. She was hospitalized in October for an exacerbations of COPD. She did not have pneumonia. She is under the care of Dr. Bella for her COPD and remains on Symbicort and zafirlukast bid. She has transferred her primary care to Dr. Oliveira.She continues to lose weight albeit slowly.Her main complaint is that she becomes fatigured about 5 days after her Hizentra and remains so until her next infusion. CVID, chronic sinusitis, asthma She returns for a scheduled visit. She has lost weight. She was down to 213 pounds, but is now a few pounds up. She suspects that diet soda is causing her to retain fluid. She is having a lot of right sided pain and is scheduled to have an MRI. It involves her entire right upper extremity and shoulder. She suspects that it might be related to a cervical decompression surgery she had done years ago. The pain interferes with her ability to sleep. She is on Naproxen but it is not helping. She remains on Hizentra weekly and is tolerating it. She has not had any infections at all over the winter. She saw Dr. Bella at [facility]. He requested pulmonary function and sleep studies, but she could not afford to do them with her insurance coverage. He made no changes in her medical regimen. She reports that she has recently had a lot of coughing. She has recently been using her nebulizer up to 3 times a day. She is on Symbicort bid and zafirlukast bid. Her last refill was for 10 mg (not 20 mg). She has been off prednisone for months.She reports that her diabetes is controlled an improved. She took a diabetes instruction class at [facility] and she found this to be very helpful. [facility] her CVID. She transferred her care from Dr. Ben Pinto to [facility] earlier this year, and we transitioned her from IVIG administered weekly to Hizentra once weekly. She was taking prednisone before each IV administration, so she developed remarkable cushingoid side effects and poor diabetes control. She initially felt great after starting the Hizentra, but now she feels the is having more infections and poor asthma control. She was at [facility] in November. . She is not sure for how long she has been more sick. She has clear nasal discharge. She does not have a lot of post-nasal drainage. She has a cough. It is mostly not prodcutive. It got a little better by using the nebulizer. She has not had to use the nebulizer at night for the past few nights. She is on Symbicort 160 bid and zafirluakst 20 mg bid. She has not lost weight in the past 4 months even though she is no longer on oral steroids. Her diabetes has not been well controlled. Her last A1C was 8.6 in December.She is not exercising due to recent bladder surgery--it was successful, so she hopes to increase her physical activity in the next year. She last had a pre-op CXR at [facility] in November and she reports that it looked okay. She had a normal HRCT of her chest in 2012. She does have chornic sinusitis, as demonstrated on a sinus CT in July of this year, but she does not currently feel that she has sinus infection. She has seen Dr. Moffett in the past, but has not seen him for several years. She inquires about seeing a new search advertising strategist. Asthma She was last see n in 2010. She was getting multiple infections. In 2012 Dr. Pinto performed immunologic testing and diagnosed her with CVID. She was not certain of the dates, so I reviewed her [facility] record in detail. It appears that she started IVIG infusion late 2012. Shee had an anaphylactic reaction with her first infusion at home. Following that, she has had weekly infusions at [facility] with Gammagard Liquid. She is premedicated with IV steroids, 60 mg of solu-medrol, as well as Benadryl and acetaminophen before each infusion. Her IgG leve before starting infusions was 148 mg/dL. (Her IgA and IgM were also low at that time, consistent with a diagnosis of CVID.) There was one interruption of her Ig therapy in spring 2013. After harshal off the Gammagard for at least 6 weeks, an IgG level was 643. She resuemd in July 2013 and has received 45 grams weekly since that time. This is equivalent to 1700 mg/dl every 4 weeks of immune globulin (which is an extraordinarily high dose for this condition.) It appears she has never had an IgG level done during regular therapy. She reports that she has had a marked reduction of infections since she has been on Ig therapy. She has however has bronchitis and has had documented sinusitis on CT scans of her sinuses. An HRCT of the chest did NOT demonstrate bronchiectasis. Dr. Pinto will be leaving the [facility], and she is transferring the management of her Ig therapy to [facility]. She had never been introduced to the idea of subcutaneous administration of immune globulin. She has never tried an alternative to the Gammagard liquid. She has continued to receive 60 mg of Solumedrol weekly for the better part of 2 years, and consequently has obesity and poorly controlled diabetes. She has a history of asthma, but this has been somewhat controlled. She mostly had dyspnea with little exertion. Pulmonary function testing has demonstrated moderate restrictive changes of her lungs.She is on Symbicort 160 bid and zafirlukast for her asthma. She has had negative allergy testing in the past, but takes Zyrtec 10 mg daily. Functional Status Date Functional Assessmen t No Information Instructions Date Instruction Additional Infor mackenzie History of asthma/ob structive lung disease likely related to underlying CVID.Overall, improved from last visit. Continue Trelegy 200, albuterol 2 puffs q4-6hr prn. Related to COPD Recent CT of the [address] [facility] with semisolid nodule. Followed by Pulmonary. Related to Solitary lung nodule Doing well from an i mmune standpoint. No recent infections except UTI x 1. Continues on Hizentra 16 grams qweek. Exam is normal today.Continue Hizentra. Check CBC with diff, CMP and IgG level this week (infuses on Sundays, so recommended labs be done on a Sunday or Sunday). 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 Recent ECHO, nuclear stress test essentially negative. LHC with non-obstructive coronary disease. CBC with normal H/H. CMP with normal BUN/Cr. LE Dopplers done late last year were negative. Recent CT of the Chest with contrast with a pulmonary nodule but was otherwise negative.The ACT score is 9 (CPT 67016) for administration of patient-focused health risk assessment instrument. Spirometry (pre and post CPT 46499) was at her baseline with pre-bd values of FVC=75%, FEV1=67%, FEV1/FVC=0.678 and post-bd values of FVC=78%, FEV1=72%, FEV1/FVC=0.695 (mouthpiece used as required for spirometry CPT A4617). The change in FEV1=5% and 100 cc which is not significant for reversibility.She has follow-up scheduled for 08/02/23 with Pulmonary - [facility]. She is currently on Trelegy 200 1 inh QD and albuterol prn. Continue current therapy. Could consider Tezspire if no other clear cause of GALVAN is found. She will discuss further with Pulmonary. Can administer Tezspire in our office. Related to SOB Doing well from an i mmune standpoint. No recent infections. Continues on Hizentra 16 grams qweek. Continue Hizentra. Recent CBC with diff, CMP were normal. Will check trough IgG level. 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 She is on amlodipine. Also with h/o ANDREA - on BIPAP. Chest exam was normal today, spirometry was above baseline. She also reports fluttering sensation in chest that occurs sporadically for the past 2 weeks. Recommended follow-up with PCP. States she has an appt on December 13, but advised her to contact PCP sooner. Denies current CP or SOB.RTC in 6 months or sooner if having symptoms. Related to Edema Stable. Continue Tanner nase and loratadine daily. Related to Other allergic rhinitis Chest exam is normal today. Symptoms improved since restarting Trelegy. Spirometry above her baseline today - 76%/77%/0.76/73%. Trelegy 200 samples given today to use 1 inh qd. Continue albuterol 2 puffs q4-6hr prn. Related to Moderate persistent asthma Pneumonia x 1 since last visit - treated effectively as an outpatient. Continue Hizentra 16 grams qweek. Check IgG, CBC with diff and CMP today. Labs from last visit were essentially normal. 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 Finish antibiotics.RTC in 6 months or sooner if having symptoms. Related to Acute sinusitis Doing quite well. Co ntinue Hizentra 16 grams qweek with benadryl pretreatment. Check CBC with diff, CMP, IgG/A/M/E levels. 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 Plan for spi rometry at her next visit. Continue Trelegy 200 1 inh qd and albuterol q4hr prn. Related to Moderate persistent asthma Giving encouragement to exercise Related to Body mass index [BMI] 40.0-44.9, adult Giving encouragement to exercise Related to Body mass index [BMI] 38.0-38.9, adult Giving encouragement to exercise Related to Body mass index [BMI] 39.0-39.9, adult Giving encouragement to exercise Related to Body mass index [BMI] 39.0-39.9, adult Giving encouragement to exercise Related to Body mass index [BMI] 40.0-44.9, adult Giving encouragement to exercise Related to Body mass index [BMI] 40.0-44.9, adult Giving encouragement to exercise Related to Body mass index [BMI] 39.0-39.9, adult Lifestyle education regarding di et Related to Body mass index [BMI] 39.0-39.9, adult Assessments Type Assessment Date No Information Patient Care Teams Name Effective Dates (start - stop) Status Members No Information
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
--- NOTE | ~2025-01-30 | XR_ITS ---
EXAMINATION: XR hand LT min 3V, 01/30/2025 9:35 PROPERTY ACCOUNTANT HISTORY: trauma, swelling, PAIN COMPARISON: No comparisons available. Findings: No acute fracture or malalignment. Moderate degenerative changes of the distal interphalangeal joints of the first metacarpal carpal joint, no erosions are identified. Soft tissues unremarkable. Impression: No acute fracture or malalignment. Reviewed, dictated and finalized at location P. ERTY ACCOUNTANT Impression: No acute fracture or malalignment.
[2025-01-30 09:11] VITALS: BP 142/55; PULSE 79; RESP 18; TEMP 36.6; O2SAT 96
--- OUTSIDE RECORDS SUMMARY | 2025-01-30 09:16 | XMS_ITS | Encounter Summary ---
Author Organization [facility] Address [address] [place] [address] Care Team Providers Care Meter Tester Primary Name Role Phone Chiqui Gill MD Primary Care Provider [phone] Encounter Details Date Type Department Care Team (Late st Contact Info) Description 06/02/2006 Emergency [facility] Mikael Garrido MD NO ADDRESS ON FILE Er, Authorized P NO ADDRESS ON FILE Aftercare for Healing Traumatic Fracture of Other Bone (Primary Dx) Social History Tobacco Use Types Packs/Day Years Used Date Smoking Tobacco: Never Assessed Comments Unknown Sex and Gender Information Value Date Recorded Sex Assigned at Female 10/29/2024 6:24 PM CDT Legal Sex Female 5:25 AM TOWER TECHNICIAN Gender Identity Female 10/29/2024 6:24 PM CDT Sexual Orientation Not on file documented as of this encounter Plan of Treatment Upcoming Encounters Date Type Department Care Team (Late st Contact Info) Description 02/18/2025 10:00 AM TOWER TECHNICIAN Procedure visit [facility] Urology [facility] [address] [facility] 260 [place] [address] [place] [address] [facility] 260 [place] [address] 02/18/2025 10:00 AM TOWER TECHNICIAN Procedure visit [facility] Urology [facility] [address] [facility] 260 [place] [address] 04/09/2025 2:00 PM TOWER TECHNICIAN Office Visit [facility] Heart and Vascular - [address] [facility] 300 [address] [facility] 300 [place] [address] Nica Coronel, DANIEL [address] [facility] 300 [place] [address] 04/16/2025 11:00 AM TOWER TECHNICIAN Appointment [address] [address] Saray Luu MD [address] [place] [address] 280 [place] [address] 04/23/2025 11:40 AM CDT Office Visit [facility] Pulmonology - [address] [address] Saray Luu MD [address] [place] [address] 06/04/2025 11:20 AM CDT Office Visit [facility] [address] [address] Chiqui Gill MD [address] [place] [address] 07/13/2025 11:00 AM CDT Office Visit [address] [address] Chiqui Gill MD [address] [place] [address] documented as of this encounter Visit Diagnoses Diagnosis Aftercare for healing traumatic fracture of other bone- Primary documented in this encounter Additional Health Concerns Infection Onset Date Last Indicated Resolved Time R/O COVID-19 01/07/2020 01/07/2020 01/10/2020 1:31 AM TOWER TECHNICIAN R/O COVID-19 10/01/2020 10/01/2020 10/02/2020 1:37 AM CDT R/O COVID-19 03/08/2021 03/08/2021 03/09/2021 1:20 AM TOWER TECHNICIAN COVID-19 03/08/2021 03/08/2021 04/07/2021 2:19 AM TOWER TECHNICIAN R/O COVID-19 03/14/2022 03/14/2022 03/14/2022 9:28 PM TOWER TECHNICIAN documented as of this encounter Care Teams Meter Tester Primary Relationship Specialty [place] [address] [phone] PCP - General Internal Medicine 12/13/17 documented as of this encounter
--- OUTSIDE RECORDS SUMMARY | 2025-01-30 09:17 | XMS_ITS | Encounter Summary ---
Author Organization [facility] Address [address] [place] [address] Care Team Providers Care Nuclear Supervising Operator Name Role Phone Chiqui Gill MD Primary Care Provider [phone] Encounter Details Date Type Department Care Team (Late Contact Info) Description 04/04/2000 Outpatient Historical [facility] 10 [place] [address] Ke Michel, DO [address] [facility] [address] [place] [address] Social History Tobacco Use Types Packs/Day Years Used Date Smoking Tobacco: Never Assessed Comments Unknown Sex and Gender Information Value Date Recorded Sex Assigned at Female 10/29/2024 6:24 PM CDT Legal Sex Female 5:25 AM BEADER TENDER Gender Identity Female 10/29/2024 6:24 PM CDT Sexual Orientation Not on file documented as of this encounter Plan of Treatment Upcoming Encounters Date Type Department Care Team (Late st Contact Info) Description 02/18/2025 10:00 AM BEADER TENDER Procedure visit [facility] [address] [facility] [place] [address] [place] [address] [facility] 260 [place] [address] 02/18/2025 10:00 AM BEADER TENDER Procedure visit [facility] [address] [facility] [address] [place] [address] 04/09/2025 2:00 PM BEADER TENDER Office Visit [facility] Heart and Vascular - [address] [facility] 300 [address] [facility] 300 [place] [address] [place] [address] [facility] 300 [place] [address] 04/16/2025 11:00 AM BEADER TENDER Appointment [facility] [address] [address] [place] [address] [facility] 280 [place] [address] 04/23/2025 11:40 AM CDT Office Visit [facility] Pulmonology - [address] [place] [address] [place] [address] [place] [address] 06/04/2025 11:20 AM CDT Office Visit [facility] Care - [address] [place] [address] Chiqui Gill MD [address] [place] [address] 07/13/2025 11:00 AM CDT Office Visit [facility] Care - [address] [place] [address] Chiqui Gill MD [address] [place] [address] documented as of this encounter Visit Diagnoses Not on filedocumented in this encounter Additional Health Concerns Infection Onset Date Last Indicated Resolved Time R/O COVID-19 01/07/2020 01/07/2020 01/10/2020 1:31 AM BEADER TENDER R/O COVID-19 10/01/2020 10/01/2020 10/02/2020 1:37 AM CDT R/O COVID-19 03/08/2021 03/08/2021 03/09/2021 1:20 AM BEADER TENDER COVID-19 03/08/2021 03/08/2021 04/07/2021 2:19 AM BEADER TENDER R/O COVID-19 03/14/2022 03/14/2022 03/14/2022 9:28 PM BEADER TENDER documented as of this encounter Care Teams Nuclear Supervising Operator Relationship Specialty [place] [address] [address] PCP - General Internal Medicine 12/13/17 documented as of this encounter
--- OUTSIDE RECORDS SUMMARY | 2025-01-30 09:17 | XMS_ITS | Encounter Summary ---
Author Organization [facility] Address [address] [place] [address] Care Team Providers Care Legal Adviser Name Role Phone Chiqui Gill MD Primary Care Provider [phone] Encounter Details Date Type Department Care Team (Late st Contact Info) Description 06/09/[address] [facility] [address] [place] [address] Mikael Peterson MD [address] [facility] [address] [place] [address] Social History Tobacco Use Types Packs/Day Years Used Date Smoking Tobacco: Never Assessed Comments Unknown Sex and Gender Information Value Date Recorded Sex Assigned at Female 10/29/2024 6:24 PM CDT Legal Sex Female 5:25 AM CARBURETOR REPAIRER Gender Identity Female 10/29/2024 6:24 PM CDT Sexual Orientation Not on file documented as of this encounter Plan of Treatment Upcoming Encounters Date Type Department Care Team (Late st Contact Info) Description 02/18/2025 10:00 AM CARBURETOR REPAIRER Procedure visit [facility] [address] [facility] [place] [address] [place] [address] [facility] 260 [place] [address] 02/18/2025 10:00 AM CARBURETOR REPAIRER Procedure visit [facility] [address] [facility] [address] [place] [address] 04/09/2025 2:00 PM CARBURETOR REPAIRER Office Visit [facility] Heart and Vascular - [address] [facility] 300 [address] [facility] 300 [place] [phone] [place] [address] [facility] 300 [place] [address] 04/16/2025 11:00 AM CARBURETOR REPAIRER Appointment [facility] Services [address] [phone] Saray Luu MD [address] [place] [address] 280 [place] [address] 04/23/2025 11:40 AM CDT Office Visit [facility] Pulmonology - [address] [place] [address] Saray Luu [place] [address] [place] [address] [address] [place] [address] 06/04/2025 11:20 AM CDT Office Visit [address] [place] [address] Chiqui Gill MD [address] [place] [address] 07/13/2025 11:00 AM CDT Office Visit [address] [place] [address] Chiqui Gill MD [address] [place] [address] documented as of this encounter Visit Diagnoses Not on filedocumented in this encounter Additional Health Concerns Infection Onset Date Last Indicated Resolved Time R/O COVID-19 01/07/2020 01/07/2020 01/10/2020 1:31 AM CARBURETOR REPAIRER R/O COVID-19 10/01/2020 10/01/2020 10/02/2020 1:37 AM CDT R/O COVID-19 03/08/2021 03/08/2021 03/09/2021 1:20 AM CARBURETOR REPAIRER COVID-19 03/08/2021 03/08/2021 04/07/2021 2:19 AM CARBURETOR REPAIRER R/O COVID-19 03/14/2022 03/14/2022 03/14/2022 9:28 PM CARBURETOR REPAIRER documented as of this encounter Care Teams Legal Adviser Relationship Specialty [place] [address] [address] PCP - General Internal Medicine 12/13/17 documented as of this encounter
--- OUTSIDE RECORDS SUMMARY | 2025-01-30 09:17 | XMS_ITS | Clinical Summary ---
Author Organization [facility] Address [address] [facility] [place] [address] Care Team Providers Care Hospital Admissions Clerk Name Role Phone Chiqui Gill MD Primary Care Provider Allergies Active Allergy Reactions Criticality Noted Date Comments Adhesive Tape-Silicones Cephalexin Hives,Diarrhea Medium 10/14/2008 Clarithromycin Other (See comments) Low 11/27/2017 Upset GI Metformin Diarrhea Low 11/27/2017 Montelukast Other (See comments) High 04/14/2010 Other reaction(s): Other (See Comments) Bruising Other reaction(s): Other (See Comments) Other reaction(s): Other (See comments) brusing brusing brusing Oxycodone-Acetaminoph en Hallucinations High 11/17/2008 Other reaction(s): Other (See Comments) Severe Hallucinations Other reaction(s): Hallucination Sulfamethoxazole-Trim ethoprim Unknown 11/27/2017 Other reaction(s): Unknown Other reaction(s): Unknown Triamterene-Hydrochlo rothiazid Other (See comments) Low 11/27/2017 INCR BS Medications fluticasone (FLONASE) 50 mcg/actuation nasal spray Administer 2 sprays into each nostril 2 (two) times a day. 8 Active gabapentin (NEURONTIN) 300 mg capsule Take 600 mg by mouth 3 (three) times a day. 8 Active traMADol (ULTRAM) 50 mg tablet Take 50 mg by mouth nightly as needed. Active cetirizine (ZyrTEC) 5 mg tablet Take 5 mg by mouth 2 times daily. 8 Active lisinopril (PRINIVIL,ZESTRIL ) 40 mg tablet Take 40 mg by mouth daily. 2 8 Active zafirlukast (ACCOLATE) 20 mg tabletIndications :Maintenance Therapy for Asthma Take 20 mg by mouth 2 (two) times a day. 1 8 Active FLUoxetine (PROzac) 40 mg capsule Take 40 mg by mouth daily. 0 8 Active calcium carbonate (OS-LAN) 1,500 mg (600 mg of elemental calcium) tablet Take 1 tablet by mouth daily. Active ALPRAZolam (XANAX) 1 mg tablet Take 1 mg by mouth 4 (four) times a day. 3 8 Active simvastatin (ZOCOR) 40 mg tablet Take 40 mg by mouth nightly. at bedtime. 2 8 Active aspirin 81 mg tablet Take 81 mg by mouth daily. Active insulin glargine (LANTUS,BASAGLAR) 100 unit/mL (3 mL) insulin pen Inject 15 Units under the skin. Active albuterol HFA (PROVENTIL HFA,VENTOLIN HFA,PROAIR HFA) 90 mcg/actuation inhaler Inhale 1 puff every 6 hours as needed. 0 Active budesonide-formot alberto (SYMBICORT) 160-4.5 mcg/actuation inhaler Inhale 2 puffs 2 times daily. Active cholecalciferol (VITAMIN D-3) 2,000 unit capsule Take 2,000 Units by mouth daily. Active ferrous sulfate 325 mg (65 mg of elemental iron) tabletIndications :Iron Deficiency Anemia Take 325 mg by mouth daily. Active guaiFENesin ER (MUCINEX) 600 mg 12 hr tablet Take 600 mg by mouth 2 times daily. 8 Active ipratropium-albut alberto (DUO-NEB) 0.5-2.5 mg/3 mL nebulizer solutionIndicatio ns:Chronic Obstructive Pulmonary Disease with Bronchospasms Inhale 3 mL every 6 (six) hours as needed. 4 Active immune globulin (HIZENTRA) subcutaneous infusion Inject 16 g under the skin once a week. Tuesdays Active furosemide (LASIX) 20 mg tablet Take 20 mg by mouth daily. Active glyBURIDE (DIABETA) 2.5 mg tablet Take 5 mg by mouth daily with breakfast. Active potassium chloride ER (KLOR-CON,K-DUR) 10 mEq CR tablet Take 10 mEq by mouth daily. Active carisoprodol (SOMA) 250 mg tabletIndications :Muscle Spasm Take 250 mg by mouth daily. Active fluorometholone (FML) 0.1 % ophthalmic suspension Administer 1 drop into the right eye 3 (three) times a day 5 mL 1 9 Active Active Problems Problem Noted Date Diagnosed Date Type 2 diabetes mellitus wit h diabetic chronic kidney disease 01/23/2019 Allergic conjunctivitis of right eye 01/23/2019 Depression with anxiety 04/05/2018 Essential hypertension 04/05/2018 Hyperlipidemia 04/05/2018 CVID (common variable immunodeficiency) 04/05/19 19 COPD with asthma 04/05/2018 BMI 37.0-37.9, adult 03/15/2018 Headache syndrome 01/23/2018 Assessment & Plan (01/23/2018 11:10 AM TECHNICAL SUPPORT DIRECTOR): The patient is a 62-year-old right-handed female with new onset daily severe headaches. The patient has had no neuro imaging done that I can find. Thus, with the vision changes and pressure-like pain that she is experiencing, I am going to obtain an MRI of the brain. She does seem to have blurred disc margins on examination. Certainly this may represent pseudotumor cerebri, but a intracranial mass must be ruled out as well. I will order the MRI today and contact her with results. If it is unrevealing we may proceed with the lumbar puncture. All this was discussed with the patient today. Changes in vision 01/23/2018 Assessment & Plan (01/23/2018 11:11 AM TECHNICAL SUPPORT DIRECTOR): The patient is a 62-year-old right-handed female with new onset daily severe headaches. The patient has had no neuro imaging done that I can find. Thus, with the vision changes and pressure-like pain that she is experiencing, I am going to obtain an MRI of the brain. She does seem to have blurred disc margins on examination. Certainly this may represent pseudotumor cerebri, but a intracranial mass must be ruled out as well. I will order the MRI today and contact her with results. If it is unrevealing we may proceed with the lumbar puncture. All this was discussed with the patient today. Pseudophakia of both eyes 01/25/2017 Resolved Problems Problem Noted Date Diagnosed Date Resolved Date Chest pain 04/05/2018 04/06/2018 Surgical History Surgery Date Site/Laterality Comments HYSTERECTOMY 02/12/1999 - 02/12/2000 NECK SURGERY 02/12/2003 - 02/12/2004 decomopression GALLBLADDER SURGERY 02/12/2005 - 02/11/2006 HYSTERECTOMY Medical History Medical History Date Comments Depression Hypertension Anxiety Diabetes mellitus Headache PTSD (post-traumatic stress disorder) Insomnia CVID (common variable immunodeficiency) Asthma COPD (chronic obstructive pulmonary disease) Family History Medical History Relation Name Comments Cancer Father voice box Heart attack Father Diabetes Sister Relation Name Status Comments Brother hypertension Alive Father (Age 73) Carotid ar todd blocked Mother Alive Sister Alive Social History Tobacco Use Types Packs/Day Years Used Date Smoking Tobacco: Former Smokeless Tobacco: Never Comments:quit over 12 years ago Alcohol Use Standard Drinks/Week Comments No 0 (1 standard drink = 0.6 oz pur e alcohol) Personal Safety Answer Date Recorded Getting School Help Needed Not on file 04/02 Comments Unknown Sex and Gender Information Value Date Recorded Sex Assigned at Not on file Legal Sex Female 9:32 AM TECHNICAL SUPPORT DIRECTOR Gender Identity Not on file Sexual Orientation Not on file Last Filed Vital Signs Vital Sign Reading Time Taken Comments Blood Pressure 140/62 04/06/2018 10:40 AM TECHNICAL SUPPORT DIRECTOR Pulse 58 04/06/2018 10:40 AM TECHNICAL SUPPORT DIRECTOR Temperature 36.6 C (97.9 F) 04/06/2018 10:40 AM TECHNICAL SUPPORT DIRECTOR Respiratory Rate 18 04/06/2018 10:40 AM TECHNICAL SUPPORT DIRECTOR Oxygen Saturation 100% 04/06/2018 10:40 AM TECHNICAL SUPPORT DIRECTOR Inhaled Oxygen Concentration - - Weight 95.7 kg (211 lb) 04/05/2018 1:04 PM TECHNICAL SUPPORT DIRECTOR Height 157.5 cm (5' 2) 04/05/2018 1:04 PM TECHNICAL SUPPORT DIRECTOR Body Mass Index 38.59 04/05/2018 1:04 PM TECHNICAL SUPPORT DIRECTOR Plan of Treatment Not on file Insurance [employer] HE[employer] Advance Directives For more information, please contact: [phone] * Full Code (Latest Code Status on File) Date Activated Date Inactivated Comments 04/05/2018 6:16 PM 04/06/2018 4:57 PM * Full Code Date Activated Date Inactivated Comments 04/05/2018 6:07 PM 04/05/2018 6:16 PM Care Teams Hospital Admissions Clerk Relationship Specialty [place] [id number] [facility] [address] [place] [address] PCP - General 12/18/16
--- OUTSIDE RECORDS SUMMARY | 2025-01-30 09:17 | XMS_ITS | Encounter Summary ---
Author Organization [facility] Address [address] [place] [address] Care Team Providers Care Commissioning Engineer Name Role Phone Chiqui Gill MD Primary Care Provider Encounter Details Date Type Department Care Team (Late st Contact Info) Description 08/05/2021 Lab Requisition [facility] Services [address] [facility] [address] [facility] [place] [address] Tiffani Alvarenga, [place] [address] [facility] [address] [place] [address] Unspecified bacterial pneumonia Social History Tobacco Use Types Packs/Day Years Used Date Smoking Tobacco: Former Cigarettes 2 37 0 07/01/1968 - 07/01/2005 Smokeless Tobacco: Never Alcohol Use Standard Drinks/Week Comments No 0 (1 standard drink = 0.6 oz pur e alcohol) Comments No Sex and Gender Information Value Date Recorded Sex Assigned at Female 10/29/2024 6:24 PM CDT Legal Sex Female 5:25 AM SKIN TANNER Gender Identity Female 10/29/2024 6:24 PM CDT Sexual Orientation Not on file COVID-19 Exposure Response Date Recorded In the last 10 days, have yo u been in contact with someone who was confirmed or suspected to have Coronavirus/COVID-19? No / Unsure 08/05/2021 8:35 AM CDT documented as of this encounter Miscellaneous Notes * Result Encounter Note - Tiffani Black, LOUISE - 08/05/2021 4:55 PM CDT ESR & CRP slightly elevated. Does not necessarily correlate at this point since chest xray was normal. IgM and IgA were low, she needs to follow this up with Dr. Maxwell as discussed for possible infusion. Kidney function stable. Glucose was 66, make sure she is checking her blood glucose levels and monitor for any hypoglycemic events. Need to take protein snack if low documented in this encounter Plan of Treatment Upcoming Encounters Date Type Department Care Team (Late st Contact Info) Description 02/18/2025 10:00 AM SKIN TANNER Procedure visit [facility] Urology [address] [place] [address] [place] Gibbs [place] [id number] [place] [address] [address] [place] [address] 02/18/2025 10:00 AM SKIN TANNER Procedure visit [facility] Urology [address] [place] [address] 04/09/2025 2:00 PM SKIN TANNER Office Visit [facility] Heart and Vascular - [address] [facility] [address] [address] [facility] [address] [place] [address] Nica Coronel, DANIEL [address] [facility] [address] [place] [address] 04/16/2025 11:00 AM SKIN TANNER Appointment [facility] Imaging Services [address] [address] Saray Luu MD [address] [place] [address] [address] [place] [address] 04/23/2025 11:40 AM CDT Office Visit [facility] Pulmonology - [facility] [id number] [place] [address] [address] [place] [address] Saray Luu MD [address] [place] [address] [address] [place] [address] 06/04/2025 11:20 AM CDT Office Visit [address] [address] Chiqui Gill MD [address] [place] [address] 07/13/2025 11:00 AM CDT Office Visit [address] [address] Chiqui Gill MD [address] [place] [address] documented as of this encounter Procedures Procedure Name Priority Date/Time Associated Diagnosis Comments SEDIMENTATION RATE Stat 08/05/2021 10 :48 AM CDT Unspecified bacterial pneumonia C-REACTIVE PROTEIN Stat 08/05/2021 10 :48 AM CDT Unspecified bacterial pneumonia IGA Routine 08/05/2021 10:48 AM CDT Unspecified bacterial pneumonia IGM Routine 08/05/2021 10:48 AM CDT Unspecified bacterial pneumonia IGG Stat 08/05/2021 10:48 AM CDT Unspecified bacterial pneumonia COMPREHENSIVE METABOLIC PANEL Stat 08/05/2021 10:48 AM CDT Unspecified bacterial pneumonia documented in this encounter Results * (ABNORMAL) SEDIMENTATION RATE (08/05/2021 10:48 AM CDT) ESR (SEDIMENTATION RATE) 38(H) <=30 mm/Hr 08/05/2021 4:03 PM CDT [facility] Blood Venipuncture / Unknown 08/05/2021 10:48 AM CDT 08/05/2021 3:27 PM CDT us Tiffani Alvarenga [place] HEMATOLOG[facility] ORDERABLES F inal Result [facility] CLIA# [id number] [address] [place] [address] * (ABNORMAL) COMPREHENSIVE METABOLIC PANEL (08/05/2021 10:48 AM CDT) Pathologist [facility] SODIUM 141 136 - 145 mmol/L 08/05/2021 4:32 PM CDT [facility] POTASSIUM 4.1 3.5 - 5.0 mmol/L 08/05/2021 4:32 PM T [facility] Comment: Testing was performed on Serum. Specimen of choice is [place] Heparinized Plasma. Serum Potassium Reference Range: 0 years - 150 years 3.5 - 5.1 mmol/L CHLORIDE 100 98 - 107 mmol/L 08/05/2021 4:32 PM T [facility] CO2 32(H) 22 - 29 mmol/L 08/05/2021 4:32 PM T [facility] CALCIUM 9.3 8.6 - 10.2 mg/dL 08/05/2021 4:32 PM T [facility] BUN 21 8 - 23 mg/dL 08/05/2021 4:32 PM [facility] CREATININE 1.17(H) 0.51 - 0.95 mg/dL 08/05/2021 4:32 PM T [facility] GLUCOSE 66(L) 74 - 99 mg/dL 08/05/2021 4:32 PM T [facility] TOTAL PROTEIN 6.8 6.7 - 8.6 g/dL 08/05/2021 4:32 PM T [facility] Comment: Testing was performed on Serum. Specimen of choice is [place] Heparinized Plasma. Serum TP Ref. Range: 3 years - 150 years 6.4 - 8.3 g/dL 2 years - 3 years 6.0 - 8.0 g/dL 1 year - 2 years 5.6 - 7.5 g/dL 7 months - 1 year 5.1 - 7.3 g/dL 7 days - 7 months 4.4 - 7.6 g/dL 0 days - 7 days 4.6 - 7.0 g/dL ALBUMIN 3.9 3.5 - 5.2 g/dL 08/05/2021 4:32 PM [facility] BILIRUBIN TOTAL <0.2(L) 0.2 - 1.1 mg/dL 08/05/2021 4:32 PM T [facility] ALKALINE PHOSPHATASE 81 35 - 104 U/L 08/05/2021 4:32 PM [facility] AST 22 <33 U/L 08/05/2021 4:32 PM [facility] ALT 26 <34 U/L 08/05/2021 4:32 PM [facility] GFR 51(L) >=60 mL/min/1.7 3 sq meter 08/05/2021 4:32 PM [facility] Comment:eGFR calculated with 2020 CKD-EPI equation. Vegetarian diet, extremely high or low muscle mass, and may affect results. Cystatin C with Glomerular Filtration Rate is a suitable alternative for these patients. ANION GAP 9 8 - 16 mmol/L 08/05/2021 4:32 PM [facility] Blood Venipuncture / Unknown 08/05/2021 10:48 AM CDT 08/05/2021 3:27 PM CDT [facility] - 08/05/2021 4:32 PM CDT Samples containing indocyanine green cause interferences on Total and/or Direct Bilirubin and must not be measured. us Tiffani Alvarenga [place] CHEMISTRY ORDERABLES Fi nal Result [facility] CLIA# [id number] [address] [facility] [address] [place] [address] * (ABNORMAL) C-REACTIVE PROTEIN (08/05/2021 10:48 AM CDT) CRP 7.5(H) <5.0 mg/L 08/05/2021 4:32 PM CDT [facility] Blood Venipuncture / Unknown 08/05/2021 10:48 AM CDT 08/05/2021 3:27 PM CDT Tiffani Alvarenga [place] CHEMISTRY ORDERABLES Fi nal Result [facility] CLIA# [id number] [address] [place] [address] * IGG (08/05/2021 10:48 AM CDT) IGG 1,109 621 - 1,631 mg/dL 08/05/2021 4:28 PM CDT [facility] Blood Venipuncture / Unknown 08/05/2021 10:48 AM CDT 08/05/2021 3:27 PM CDT Tiffani Alvarenga [place] CHEMISTRY ORDERABLES Fi nal Result Performing Organization Address [facility]/ZIP Co de Phone Number [facility] [facility] CLIA# [id number] [address] [place] [address] * (ABNORMAL) IGA (08/05/2021 10:48 AM CDT) IGA 80(L) 86 - 517 mg/dL 08/05/2021 4:28 PM CDT [facility] [employer] [facility] Blood Venipuncture / Unknown 08/05/2021 10:48 AM CDT 08/05/2021 3:27 PM CDT Tiffani Alvarenga [place] CHEMISTRY ORDERABLES Fi nal Result [facility] [facility] [id number] [address] [place] [address] * (ABNORMAL) IGM (08/05/2021 10:48 AM CDT) IGM 22(L) 37 - 286 mg/dL 08/05/2021 4:44 PM CDT [facility] Blood Venipuncture / Unknown 08/05/2021 10:48 AM CDT 08/05/2021 3:27 PM CDT Tiffani Alvarenga [place] CHEMISTRY ORDERABLES Fi nal Result [facility] [employer] [facility] CLIA# [id number] [address] [place] [address] documented in this encounter Visit Diagnoses Diagnosis Unspecified bacterial pneumonia documented in this encounter Additional Health Concerns Infection Onset Date Last Indicated Resolved Time R/O COVID-19 03/14/2022 03/14/2022 03/14/2022 9:28 PM SKIN TANNER documented as of this encounter Care Teams Commissioning Engineer Relationship Specialty Start Date [place]iqu[place] [id number] [place] [phone] PCP - General Internal Medicine 12/13/17 documented as of this encounter
--- OUTSIDE RECORDS SUMMARY | 2025-01-30 09:17 | XMS_ITS | Clinical Summary ---
Author Organization [facility] Address [address] [place] [address] Care Team Providers Care Account Development Manager Name Role Phone Chiqui Gill MD Primary Care Provider [phone] Wilber Minaya MD Unavailable Source Comments [facility],non-owned Affiliates and Associated Physician Practices is amultiple site organization consisting of ambulatory clinics and hospital sitesin [place], [place], [place] and [place]. This disclosure is being madepursuant to the Care Everywhere program and may not contain all information available regarding this patient. Last updated 17.[facility] Allergies Active Allergy Reactions Criticality Noted Date Comments Adhesive Sensitivity Rash Medium 02/06/2013 Clarithromycin Other Low 11/27/2017 Upset GI Cephalexin 04/06/2014 Metformin Diarrhea Low 11/27/2017 Red Dye Swelling Low 06/07/2023 Lip and tongue swelling ( red sewing thread) took benadryl Montelukast 04/06/2014 Oxycodone-Acetaminophen 04/06/2014 Medications * Be aware that medications may not be up to date on this document. Alwaysverify current medications with the patient. atorvastatin (Lipitor) 40 MG tablet Take 1 (one) tablet by mouth once daily Active aspirin EC (Ecotrin) 81 MG tablet Take 1 (one) tablet by mouth once daily Active amLODIPine (Norvasc) 5 MG tablet Take 1 (one) tablet by mouth once daily 4 Active clopidogrel (plaVIX) 75 MG tablet Take 1 (one) tablet by mouth once daily Active DULoxetine (Cymbalta) 60 MG capsule Take 1 (one) capsule by mouth once daily 4 Active Trelegy Ellipta 200-62.5-25 MCG/ACT inhaler Inhale 1 (one) puff by mouth once daily Active levothyroxine (Synthroid) 125 MCG tablet Take 1 (one) tablet by mouth every morning Active lisinopril (Prinivil; Zestril) 40 MG tablet Take 1 (one) tablet by mouth once daily Active loratadine (Claritin) 10 MG tablet Take 1 (one) tablet by mouth once daily Active B-D ULTRAFINE III SHORT PEN 31G X 8 MM needle 1 (one) Each by Injection route once daily 4 Active Continuous Glucose Sensor (EcoTimberStyle Will 3 Sensor) [facility] USE TO MONITOR GLUCOSE CONTINUOUSLY. APPLY A SENSOR EVERY 14 DAYS. 4 Active guaiFENesin ER 12hr (Mucinex) 600 MG tablet Take 1 (one) tablet by mouth 2 times daily 3 Active pregabalin (Lyrica) 75 MG capsule Take 1 (one) capsule by mouth 2 times daily 4 Active benzonatate (Tessalon) 200 MG capsule Take 1 (one) capsule by mouth 3 times daily 4 Active clobetasol (Temovate) 0.05 % cream Apply to affected area 2 times daily 4 Active famotidine (Pepcid) 40 MG tablet Take 1 (one) tablet by mouth 2 times daily 4 Active traMADol (Ultram) 50 MG tablet 1 TO 2 TABLETS BY MOUTH EVERY 4 TO 6 HOURS NEEDED FOR PAIN. NOT TO EXCEED 6 IN A 24 HOUR PERIOD Active Semglee, yfgn, pen Inject 64 (sixty four) Units subcutaneously at bedtime Active triamcinolone acetonide (Kenalog) 0.1 % cream Apply to affected area 2 times daily 4 Active Social History Tobacco Use Types Packs/Day Years Used Date Smoking Tobacco: Former Cigarettes Smokeless Tobacco: Never Tobacco Cessation:Counseling Given: Not Answered PHQ-2 Answer Date Recorded Patient Health Questionnaire-2 Score 0 08/01/2024 Comments No Sex and Gender Information Value Date Recorded Sex Assigned at Not on file Legal Sex Female 6:12 AM MEDICAL SCRIBE Gender Identity Not on file Sexual Orientation Not on file Occupation Industry Job Start Date Job End Date DISABLED Not on file Not on file Not on file Last Filed Vital Signs Vital Sign Reading Time Taken Comments Blood Pressure 134/68 08/01/2024 11:53 AM CDT Pulse 76 08/01/2024 11:53 AM CDT Temperature 35.9 C (96.7 F) 08/01/2024 11:53 AM CDT Respiratory Rate 24 08/01/2024 11:53 AM CDT Oxygen Saturation 96% 08/01/2024 11:53 AM CDT Inhaled Oxygen Concentration - - Weight 100.2 kg (221 lb) 08/01/2024 11:53 AM CDT Height 154.9 cm (5' 1) 08/01/2024 11:53 AM CDT Body Mass Index 41.76 08/01/2024 11:53 AM CDT Plan of Treatment Health Maintenance Due Date Last Done Comments COLOGUARD (AGES 45-75) - COLON CA SCREENING 1954 CT COLONOGRAPHY - COLON CA SCREENING 1954 FIT - COLON CA SCREENING 1954 FLEX SIG - COLON CA SCREENING 1954 MEDICARE AWV 12 MONTHS 1954 HEPATITIS C SCREENING 10/14/1972 DTAP/TDAP/TD VACCINES (1 - Tdap) 1973 PNEUMOCOCCAL VACCINE 50+ (1 of 2 - PCV) 1973 Respiratory Syncytial Virus (RSV) Vaccine Pt: or over 60 yrs (1 - Risk 50-74 years 1-dose series) 2004 ZOSTER VACCINE (1 of 2) 2004 SCREENING FOR DIABETES 01/23/2024 COVID-19 VACCINE (2024- season) 2024 10/26/2023, 11/06/2022, 11/14/2021, Additional history exists MAMMOGRAM 10/26/2025 10/27/2023, 10/13, 10/21/2022, Additional history exists COLON MONITORING 05/05/2034 05/05/2024 COLONOSCOPY - COLON CA SCREENING 05/05/2034 05/05/2024 Colorectal Cancer Screening 05/05/2034 BONE DENSITY TESTING Completed 03/02/2021, 01/22/20 19 DEPRESSION SCREENING Completed 08/01/2024, 01/23/20 24 INFLUENZA VACCINE Completed 09/22/2024, , 11/06/2022, Additional history exists HEPATITIS B VACCINE Aged Out No longe r eligible based on patient's age to complete this topic HIB VACCINE Aged Out No longer eligi ble based on patient's age to complete this topic HPV VACCINE Aged Out No longer eligi ble based on patient's age to complete this topic MENINGOCOCCAL (Group B) VACCINE SHARED DECISION-MAKING Aged Out No longer eligible based on patient's age to complete this topic MENINGOCOCCAL GROUPS A/C/Y/W VACCINE Aged Out No longer eligible based on patient's age to complete this topic Insurance MEDICARE [facility] MEDICARE [facility] MEDICARE Care Teams Account Development Manager Relationship Specialty Start Date End Date Chiqui Gill MD PCP - General 06/10/20 Wilber Minaya MD [address] [facility] [address] [place] [address] E Commerce Architect Pulmonary Disease 07/31/24
--- OUTSIDE RECORDS SUMMARY | 2025-01-30 09:17 | XMS_ITS | Encounter Summary ---
Author Organization [facility] Address [address] [place] [address] Care Team Providers Care Young Adult Librarian Name Role Phone Chiqui Gill MD Primary Care Provider [phone] Encounter Details Date Type Department Care Team (Latest Contact Info) Description 12/09/2004 Outpatient Historical [facility] Brayan Rhoades MD NO ADDRESS ON FILE FX ASTRAGALUS-CLOSED (Primary Dx) Social History Tobacco Use Types Packs/Day Years Used Date Smoking Tobacco: Never Assessed Comments Unknown Sex and Gender Information Value Date Recorded Sex Assigned at Female 10/29/2024 6:24 PM CDT Legal Sex Female 5:25 AM HUMAN PERFORMANCE PROFESSOR Gender Identity Female 10/29/2024 6:24 PM CDT Sexual Orientation Not on file documented as of this encounter Plan of Treatment Upcoming Encounters Date Type Department Care Team (Late st Contact Info) Description 02/18/2025 10:00 AM HUMAN PERFORMANCE PROFESSOR Procedure visit [facility] Urology [facility] [address] [facility] 260 [place] [address] [place] [address] [facility] 260 [place] [address] 02/18/2025 10:00 AM HUMAN PERFORMANCE PROFESSOR Procedure visit [facility] Urology [facility] [address] [facility] [address] [place] [address] 04/09/2025 2:00 PM HUMAN PERFORMANCE PROFESSOR Office Visit [facility] Heart and Vascular - [address] [facility] [address] [address] [facility] 300 [place] [address] Nica Coronel, DANIEL [address] [facility] 300 [place] [phone] 04/16/2025 11:00 AM HUMAN PERFORMANCE PROFESSOR Appointment [facility] [address] [address] Saray Luu MD [address] [place] [address] 280 [place] [address] 04/23/2025 11:40 AM CDT Office Visit [facility] Pulmonology - [address] [address] Saray Luu MD [address] [place] [phone] 06/04/2025 11:20 AM CDT Office Visit [facility] Primary Care - [address] 200 [place] [phone] Chiqui Gill MD [address] [place] [address] 07/13/2025 11:00 AM CDT Office Visit [address] [address] Chiqui Gill MD [address] [place] [address] documented as of this encounter Procedures Procedure Name Priority Date/Time Associated Diagnosis Comments POC GLUCOSE Routine 12/09/2004 8:00 AM CDT documented in this encounter Results * (ABNORMAL) POC GLUCOSE (12/09/2004 8:00 AM CDT) GLUCOSE POC 119(H) 65 - 109 mg/dL INTERFACE SYSTEM 12/09/2004 8:00 AM CDT Brayan Rhoades MD POINT OF CARE TESTING Final Result INTERFACE SYSTEM Refer to clinic/hospital department documented in this encounter Visit Diagnoses Diagnosis Closed fracture of astragalus- Primary documented in this encounter Additional Health Concerns Infection Onset Date Last Indicated Resolved Time R/O COVID-19 01/07/2020 01/07/2020 01/10/2020 1:31 AM HUMAN PERFORMANCE PROFESSOR R/O COVID-19 10/01/2020 10/01/2020 10/02/2020 1:37 AM CDT R/O COVID-19 03/08/2021 03/08/2021 03/09/2021 1:20 AM HUMAN PERFORMANCE PROFESSOR COVID-19 03/08/2021 03/08/2021 04/07/2021 2:19 AM HUMAN PERFORMANCE PROFESSOR R/O COVID-19 03/14/2022 03/14/2022 03/14/2022 9:28 PM HUMAN PERFORMANCE PROFESSOR documented as of this encounter Care Teams Young Adult Librarian Relationship Specialty [place] [address] [address] PCP - General Internal Medicine 12/13/17 documented as of this encounter
--- OUTSIDE RECORDS SUMMARY | 2025-01-30 09:17 | XMS_ITS | Encounter Summary ---
Author Organization [facility] Address [address] [place] [address] Care Team Providers Care Distribution Operations Supervisor Name Role Phone Chiqui Gill MD Primary Care Provider [phone] Encounter Details Date Type Department Care Team (Late st Contact Info) Description 06/11/2000 Outpatient Historical [facility] Medical [place] [address] [facility] [address] [address] William Mccrary MD NO ADDRESS ON FILE Social History Tobacco Use Types Packs/Day Years Used Date Smoking Tobacco: Never Assessed Comments Unknown Sex and Gender Information Value Date Recorded Sex Assigned at Female 10/29/2024 6:24 PM CDT Legal Sex Female 5:25 AM A P MANAGER Gender Identity Female 10/29/2024 6:24 PM CDT Sexual Orientation Not on file documented as of this encounter Plan of Treatment Upcoming Encounters Date Type Department Care Team (Late st Contact Info) Description 02/18/2025 10:00 AM A P MANAGER Procedure visit [facility] Urology [facility] [address] [facility] [address] [place] [address] [place] [address] [facility] [address] [place] [address] 02/18/2025 10:00 AM A P MANAGER Procedure visit [facility] [address] [facility] [address] [place] [address] 04/09/2025 2:00 PM A P MANAGER Office Visit [facility] Heart and Vascular - [address] [facility] [address] [address] [place] [phone] Nica Coronel, CONCRETE FLOATER [address] [facility] 300 [place] [address] 04/16/2025 11:00 AM A P MANAGER Appointment [facility] Services [place] [phone] Saray Luu MD [address] [place] [address] 04/23/2025 11:40 AM CDT Office Visit [facility] Pulmonology - [address] [address] Saray Luu MD [address] [place] [address] 06/04/2025 11:20 AM CDT Office Visit [address] [address] Chiqui Gill MD [address] [place] [address] 07/13/2025 11:00 AM CDT Office Visit [address] [address] Chiqui Gill MD [address] [place] [address] documented as of this encounter Visit Diagnoses Not on filedocumented in this encounter Additional Health Concerns Infection Onset Date Last Indicated Resolved Time R/O COVID-19 01/07/2020 01/07/2020 01/10/2020 1:31 AM A P MANAGER R/O COVID-19 10/01/2020 10/01/2020 10/02/2020 1:37 AM CDT R/O COVID-19 03/08/2021 03/08/2021 03/09/2021 1:20 AM A P MANAGER COVID-19 03/08/2021 03/08/2021 04/07/2021 2:19 AM A P MANAGER R/O COVID-19 03/14/2022 03/14/2022 03/14/2022 9:28 PM A P MANAGER documented as of this encounter Care Teams Distribution Operations Supervisor Relationship Specialty [place] [address] [address] PCP - General Internal Medicine 12/13/17 documented as of this encounter
--- OUTSIDE RECORDS SUMMARY | 2025-01-30 09:17 | XMS_ITS | Encounter Summary ---
Author Organization [facility] Address [address] [place] [address] Care Team Providers Care Tumbler Machine Operator Helper Name Role Phone Chiqui Gill MD Primary Care Provider [phone] Encounter Details Date Type Department Care Team (Late st Contact Info) Description 04/09/2000 Outpatient Historical [facility]'s Health Medical [place] [address] [facility] [address] [address] Mikael Mccrary Social History Tobacco Use Types Packs/Day Years Used Date Smoking Tobacco: Never Assessed Comments Unknown Sex and Gender Information Value Date Recorded Sex Assigned at Female 10/29/2024 6:24 PM CDT Legal Sex Female 5:25 AM MRI TECHNOLOGIST Gender Identity Female 10/29/2024 6:24 PM CDT Sexual Orientation Not on file documented as of this encounter Plan of Treatment Upcoming Encounters Date Type Department Care Team (Late st Contact Info) Description 02/18/2025 10:00 AM MRI TECHNOLOGIST Procedure visit [facility] Urology [facility] [address] [facility] 260 [place] [address] [place] [address] [facility] 260 [place] [address] 02/18/2025 10:00 AM MRI TECHNOLOGIST Procedure visit [facility] Urology [facility] [address] [facility] 260 [place] [address] 04/09/2025 2:00 PM MRI TECHNOLOGIST Office Visit [facility] Heart and Vascular - [address] [facility] [address] [address] [facility] [address] 300 [place] [address] Nica Coronel, DANIEL [address] [facility] 300 [place] [address] 04/16/2025 11:00 AM MRI TECHNOLOGIST Appointment [facility] Services [place] [phone] Saray Luu MD [address] [place] [address] 280 [place] [address] 04/23/2025 11:40 AM CDT Office Visit [facility] Pulmonology - [address] [address] Saray Luu MD [address] [place] [address] 06/04/2025 11:20 AM CDT Office Visit [facility] Care - [address] [address] Chiqui Gill MD [address] [place] [address] 07/13/2025 11:00 AM CDT Office Visit [address] [address] Chiqui Gill MD [address] [place] [address] documented as of this encounter Visit Diagnoses Not on filedocumented in this encounter Additional Health Concerns Infection Onset Date Last Indicated Resolved Time R/O COVID-19 01/07/2020 01/07/2020 01/10/2020 1:31 AM MRI TECHNOLOGIST R/O COVID-19 10/01/2020 10/01/2020 10/02/2020 1:37 AM CDT R/O COVID-19 03/08/2021 03/08/2021 03/09/2021 1:20 AM MRI TECHNOLOGIST COVID-19 03/08/2021 03/08/2021 04/07/2021 2:19 AM MRI TECHNOLOGIST R/O COVID-19 03/14/2022 03/14/2022 03/14/2022 9:28 PM MRI TECHNOLOGIST documented as of this encounter Care Teams Tumbler Machine Operator Helper Relationship Specialty [place] [address] [phone] PCP - General Internal Medicine 12/13/17 documented as of this encounter
--- OUTSIDE RECORDS SUMMARY | 2025-01-30 09:17 | XMS_ITS | Encounter Summary ---
Author Organization [facility] Address [address] [place] [address] Care Team Providers Care Seafood Harvester Name Role Phone Chiqui Gill MD Primary Care Provider [phone] Encounter Details Date Type Department Care Team (Late st Contact Info) Description 12/13/2000 Outpatient Historical [facility]'s Health Medical [place] [address] [facility] [address] [address] William Mccrary MD NO ADDRESS ON FILE Social History Tobacco Use Types Packs/Day Years Used Date Smoking Tobacco: Never Assessed Comments Unknown Sex and Gender Information Value Date Recorded Sex Assigned at Female 10/29/2024 6:24 PM CDT Legal Sex Female 5:25 AM BENDING ROLL HAND Gender Identity Female 10/29/2024 6:24 PM CDT Sexual Orientation Not on file documented as of this encounter Plan of Treatment Upcoming Encounters Date Type Department Care Team (Late st Contact Info) Description 02/18/2025 10:00 AM BENDING ROLL HAND [facility] [address] [facility] [address] [place] [address] [place] [address] [facility] [address] [place] [address] 02/18/2025 10:00 AM BENDING ROLL HAND Procedure visit [facility] [address] [facility] [address] [place] [address] 04/09/2025 2:00 PM BENDING ROLL HAND Office [facility] Heart and Vascular - [address] [facility] [address] [address] [place] [phone] Nica Coronel, METAL RECLAMATION KETTLE TENDER [address] [facility] 300 [place] [address] 04/16/2025 11:00 AM BENDING ROLL HAND Appointment [facility] [place] [phone] Saray Luu MD [address] [place] [address] 04/23/2025 11:40 AM CDT Office Visit [facility] Pulmonology - [address] [address] Saray Luu MD [address] [place] [address] 06/04/2025 11:20 AM CDT Office Visit [address] [address] Chiqui Gill MD [address] [place] [address] 07/13/2025 11:00 AM CDT Office Visit [address] [address] Chiqui Gill MD [address] [place] [address] documented as of this encounter Visit Diagnoses Not on filedocumented in this encounter Additional Health Concerns Infection Onset Date Last Indicated Resolved Time R/O COVID-19 01/07/2020 01/07/2020 01/10/2020 1:31 AM BENDING ROLL HAND R/O COVID-19 10/01/2020 10/01/2020 10/02/2020 1:37 AM CDT R/O COVID-19 03/08/2021 03/08/2021 03/09/2021 1:20 AM BENDING ROLL HAND COVID-19 03/08/2021 03/08/2021 04/07/2021 2:19 AM BENDING ROLL HAND R/O COVID-19 03/14/2022 03/14/2022 03/14/2022 9:28 PM BENDING ROLL HAND documented as of this encounter Care Teams Seafood Harvester Relationship Specialty [place] [address] [address] PCP - General Internal Medicine 12/13/17 documented as of this encounter
--- OUTSIDE RECORDS SUMMARY | 2025-01-30 09:17 | XMS_ITS | Encounter Summary ---
Author Organization [facility] Address [address] [place] [address] Care Team Providers Care Fire Information Officer Name Role Phone Chiqui Gill MD Primary Care Provider [phone] Encounter Details Date Type Department Care Team (Late st Contact Info) Description 01/19/2025 Results Follow-Up [facility] Primary Care - [facility] [address] [facility] 200 [place] [address] [place] [address] [facility] [address]LEY 200 [place] [address] CBC WITH DIFFERENTIAL, MICROALBUMIN/CREATIN INE RATIO, RANDOM UR, HEMOGLOBIN A1C, Additional followed-up results: 3 Social History Tobacco Use Types Packs/Day Years [...] PM CDT Legal Sex Female 5:25 AM COLOR MIXER Gender Identity Female 10/29/2024 6:24 PM CDT Sexual Orientation Not on file documented as of this encounter Miscellaneous Notes * Result Encounter Note - Chiqui Gill MD - 01/20/2025 4:38 PM CST Your labs are all stable, no medication changes, continue plan as discussed. R MIXER * Result Encounter Note - Chiqui Gill MD - 01/19/2025 5:10 PM CST Your labs are all stable, no medication changes, continue plan as discussed. R MIXER documented in this encounter Plan of Treatment Upcoming Encounters Date Type Department Care Team (Late st Contact Info) Description 02/18/2025 10:00 AM COLOR MIXER Procedure visit [facility] Urology [facility] [address] [facility] 260 [place] [phone] [place] [address] [facility] 260 [place] [address] 02/18/2025 10:00 AM COLOR MIXER Procedure visit [facility] Urology [facility] [address] [facility] 260 [place] [address] 04/09/2025 2:00 PM COLOR MIXER Office Visit [facility] Heart and Vascular - [address] [facility] [address] [address] [facility] 300 [place] [address] [place] [address] [facility] 300 [place] [address] 04/16/2025 11:00 AM COLOR MIXER Appointment [facility] Imaging Services [facility] [address] [place] [address] [place] [address] [facility] 280 [place] [address] 04/23/2025 11:40 AM CDT Office Visit [facility] Pulmonology - [address] 280 [place] [address] Saray Luu MD [address] [place] [address] 280 [place] [address] 06/04/2025 11:20 AM CDT Office Visit [facility] Primary Care - [address] 200 [place] [address] Chiqui Gill MD [address] [place] [address] 07/13/2025 11:00 AM CDT Office Visit [address] 200 [place] [address] Chiqui Gill MD [address] [place] [address] documented as of this encounter Visit Diagnoses Not on filedocumented in this encounter Care Teams Fire Information Officer Relationship Specialty Start Date End Date Chiqui Gill MD [address] [place] [address] PCP - General Internal Medicine 12/13/17 documented as of this encounter
--- OUTSIDE RECORDS SUMMARY | 2025-01-30 09:17 | XMS_ITS | Encounter Summary ---
Author Organization [facility] Address [address] [place] [address] Care Team Providers Care Miner Assistant Name Role Phone Chiqui Gill MD Primary Care Provider [phone] Encounter Details Date Type Department Care Team (Late st Contact Info) Description 10/18/2000 Outpatient Historical [facility]'s Health Medical [place] [address] [facility] [address] [address] Mikael Mccrary Social History Tobacco Use Types Packs/Day Years Used Date Smoking Tobacco: Never Assessed Comments Unknown Sex and Gender Information Value Date Recorded Sex Assigned at Female 10/29/2024 6:24 PM CDT Legal Sex Female 5:25 AM ULTRASONIC SOLDERER Gender Identity Female 10/29/2024 6:24 PM CDT Sexual Orientation Not on file documented as of this encounter Plan of Treatment Upcoming Encounters Date Type Department Care Team (Late st Contact Info) Description 02/18/2025 10:00 AM ULTRASONIC SOLDERER Procedure visit [facility] Urology [facility] [address] [facility] 260 [place] [address] [place] [address] [facility] 260 [place] [address] 02/18/2025 10:00 AM ULTRASONIC SOLDERER Procedure visit [facility] Urology [facility] [address] [facility] 260 [place] [address] 04/09/2025 2:00 PM ULTRASONIC SOLDERER Office Visit [facility] Heart and Vascular - [address] [facility] [address] [address] [facility] 300 [place] [address] Nica Coronel, DANIEL [address] [facility] 300 [place] [address] 04/16/2025 11:00 AM ULTRASONIC SOLDERER Appointment [facility] Services [place] [phone] Saray Luu MD [address] [place] [address] 280 [place] [address] 04/23/2025 11:40 AM CDT Office Visit [facility] Pulmonology - [address] [address] Saray Luu MD [address] [place] [address] 06/04/2025 11:20 AM CDT Office Visit [facility] Care - [address] [address] Chiqui Gill MD [address] [place] [address] 07/13/2025 11:00 AM CDT Office Visit [address] [address] Chiqui Gill MD [address] [place] [address] documented as of this encounter Visit Diagnoses Not on filedocumented in this encounter Additional Health Concerns Infection Onset Date Last Indicated Resolved Time R/O COVID-19 01/07/2020 01/07/2020 01/10/2020 1:31 AM ULTRASONIC SOLDERER R/O COVID-19 10/01/2020 10/01/2020 10/02/2020 1:37 AM CDT R/O COVID-19 03/08/2021 03/08/2021 03/09/2021 1:20 AM ULTRASONIC SOLDERER COVID-19 03/08/2021 03/08/2021 04/07/2021 2:19 AM ULTRASONIC SOLDERER R/O COVID-19 03/14/2022 03/14/2022 03/14/2022 9:28 PM ULTRASONIC SOLDERER documented as of this encounter Care Teams Miner Assistant Relationship Specialty [place] [address] [phone] PCP - General Internal Medicine 12/13/17 documented as of this encounter
--- OUTSIDE RECORDS SUMMARY | 2025-01-30 09:17 | XMS_ITS | Encounter Summary ---
Author Organization [facility] Address [address] [place] [address] Care Team Providers Care Dental Internship Name Role Phone Chiqui Gill MD Primary Care Provider [phone] Encounter Details Date Type Department Care Team (Late st Contact Info) Description 05/28/2000 Outpatient Historical [facility]'s Health Medical [place] [address] [facility] [address] [address] Mikael Mccrary Social History Tobacco Use Types Packs/Day Years Used Date Smoking Tobacco: Never Assessed Comments Unknown Sex and Gender Information Value Date Recorded Sex Assigned at Female 10/29/2024 6:24 PM CDT Legal Sex Female 5:25 AM BOOKING CLERK Gender Identity Female 10/29/2024 6:24 PM CDT Sexual Orientation Not on file documented as of this encounter Plan of Treatment Upcoming Encounters Date Type Department Care Team (Late st Contact Info) Description 02/18/2025 10:00 AM BOOKING CLERK Procedure visit [facility] Urology [facility] [address] [facility] 260 [place] [address] [place] [address] [facility] 260 [place] [address] 02/18/2025 10:00 AM BOOKING CLERK Procedure visit [facility] Urology [facility] [address] [facility] 260 [place] [address] 04/09/2025 2:00 PM BOOKING CLERK Office Visit [facility] Heart and Vascular - [address] [facility] [address] [address] [facility] [address] 300 [place] [address] Nica Coronel, DANIEL [address] [facility] 300 [place] [address] 04/16/2025 11:00 AM BOOKING CLERK Appointment [facility] Services [place] [phone] Saray Luu MD [address] [place] [address] 280 [place] [address] 04/23/2025 11:40 AM CDT Office Visit [facility] Pulmonology - [address] [address] Saray Luu MD [address] [place] [address] 06/04/2025 11:20 AM CDT Office Visit [facility] Care - [address] [address] Chiqui Gill MD [address] [place] [address] 07/13/2025 11:00 AM CDT Office Visit [address] [address] Chiqui Gill MD [address] [place] [address] documented as of this encounter Visit Diagnoses Not on filedocumented in this encounter Additional Health Concerns Infection Onset Date Last Indicated Resolved Time R/O COVID-19 01/07/2020 01/07/2020 01/10/2020 1:31 AM BOOKING CLERK R/O COVID-19 10/01/2020 10/01/2020 10/02/2020 1:37 AM CDT R/O COVID-19 03/08/2021 03/08/2021 03/09/2021 1:20 AM BOOKING CLERK COVID-19 03/08/2021 03/08/2021 04/07/2021 2:19 AM BOOKING CLERK R/O COVID-19 03/14/2022 03/14/2022 03/14/2022 9:28 PM BOOKING CLERK documented as of this encounter Care Teams Dental Internship Relationship Specialty [place] [address] [phone] PCP - General Internal Medicine 12/13/17 documented as of this encounter
--- OUTSIDE RECORDS SUMMARY | 2025-01-30 09:17 | XMS_ITS | Encounter Summary ---
Author Organization [facility] Address [address] [place] [address] Care Team Providers Care Fire Range Technician Name Role Phone Chiqui Gill MD Primary Care Provider [phone] Encounter Details Date Type Department Care Team (Late st Contact Info) Description 11/01/2000 Outpatient Historical [facility] Medical [place] [address] [facility] [address] [address] Mikael Mccrary Social History Tobacco Use Types Packs/Day Years Used Date Smoking Tobacco: Never Assessed Comments Unknown Sex and Gender Information Value Date Recorded Sex Assigned at Female 10/29/2024 6:24 PM CDT Legal Sex Female 5:25 AM MENDER KNIT GOODS Gender Identity Female 10/29/2024 6:24 PM CDT Sexual Orientation Not on file documented as of this encounter Plan of Treatment Upcoming Encounters Date Type Department Care Team (Late st Contact Info) Description 02/18/2025 10:00 AM MENDER KNIT GOODS Procedure visit [facility] Urology [facility] [address] [facility] [address] [place] [address] [place] [address] [facility] 260 [place] [address] 02/18/2025 10:00 AM MENDER KNIT GOODS Procedure visit [facility] Urology [facility] [address] [facility] [address] [place] [address] 04/09/2025 2:00 PM MENDER KNIT GOODS Office Visit [facility] Heart and Vascular - [address] [facility] [address] [address] [facility] 300 [place] [address] Nica Coronel, DANIEL [address] [facility] 300 [place] [address] 04/16/2025 11:00 AM MENDER KNIT GOODS Appointment [facility] [place] [phone] Saray Luu MD [address] [place] [address] 280 [place] [address] 04/23/2025 11:40 AM CDT Office Visit [facility] Pulmonology - [address] [address] Saray Luu MD [address] [place] [address] 06/04/2025 11:20 AM CDT Office Visit [facility] - [address] [address] Chiqui Gill MD [address] [place] [address] 07/13/2025 11:00 AM CDT Office Visit [address] [address] Chiqui Gill MD [address] [place] [address] documented as of this encounter Visit Diagnoses Not on filedocumented in this encounter Additional Health Concerns Infection Onset Date Last Indicated Resolved Time R/O COVID-19 01/07/2020 01/07/2020 01/10/2020 1:31 AM MENDER KNIT GOODS R/O COVID-19 10/01/2020 10/01/2020 10/02/2020 1:37 AM CDT R/O COVID-19 03/08/2021 03/08/2021 03/09/2021 1:20 AM MENDER KNIT GOODS COVID-19 03/08/2021 03/08/2021 04/07/2021 2:19 AM MENDER KNIT GOODS R/O COVID-19 03/14/2022 03/14/2022 03/14/2022 9:28 PM MENDER KNIT GOODS documented as of this encounter Care Teams Fire Range Technician Relationship Specialty [place] [address] [phone] PCP - General Internal Medicine 12/13/17 documented as of this encounter
--- OUTSIDE RECORDS SUMMARY | 2025-01-30 09:17 | XMS_ITS | Encounter Summary ---
Author Organization [facility] Address [address] [place] [address] Care Team Providers Care Leather Scraper Name Role Phone Chiqui Gill MD Primary Care Provider [phone] Encounter Details Date Type Department Care Team (Late Contact Info) Description 12/23/2024 Results Follow-Up [facility] Primary Care - [facility] [address] [facility] 200 [place] [address] [place] [address] [facility] ASHLEY 200 [place] [address] URINALYSIS WITH REFLEX CULTURE Social History Tobacco Use Types Packs/Day Years [...] PM CDT Legal Sex Female 5:25 AM DISABILITY LIAISON OFFICER Gender Identity Female 10/29/2024 6:24 PM CDT Sexual Orientation Not on file documented as of this encounter Plan of Treatment Upcoming Encounters Date Type Department Care Team (Late Contact Info) Description 02/18/2025 10:00 AM DISABILITY LIAISON OFFICER Procedure visit [facility] Urology [facility] [address] [place] [address] 260 [place] [address] [place] [address] [facility] 260 [place] [address] 02/18/2025 10:00 AM DISABILITY LIAISON OFFICER Procedure visit [facility] Urology [address] 260 [place] [address] 04/09/2025 2:00 PM DISABILITY LIAISON OFFICER Office Visit [facility] Heart and Vascular - [address] [facility] 300 [address] [facility] 300 [place] [address] [place] [address] [facility] 300 [place] [address] 04/16/2025 11:00 AM DISABILITY LIAISON OFFICER Appointment [facility] [address] [address] Saray Luu MD [address] [place] [address] 280 [place] [address] 04/23/2025 11:40 AM CDT Office Visit [facility] Pulmonology - [address] [place] [address] Saray Luu MD [address] [place] [address] 280 [place] [address] 06/04/2025 11:20 AM CDT Office Visit [facility] Primary Care - [address] 200 [place] [address] [place] [address] [place] [address] 07/13/2025 11:00 AM CDT Office Visit [facility] Primary Care - [facility] [address] [address] Chiqui Gill MD [address] [place] [address] documented as of this encounter Visit Diagnoses Not on filedocumented in this encounter Care Teams Leather Scraper Relationship Specialty Start Date End Date Chiqui Gill MD [address] [place] [address] PCP - General Internal Medicine 12/13/17 documented as of this encounter
--- OUTSIDE RECORDS SUMMARY | 2025-01-30 09:17 | XMS_ITS | Encounter Summary ---
Author Organization [facility] Address [address] [place] [address] Care Team Providers Care Stereoptic Projection Topographer Name Role Phone Chiqui Gill MD Primary Care Provider [phone] Encounter Details Date Type Department Care Team (Late st Contact Info) Description 05/10/2000 Outpatient Historical [facility]'s Health Medical [place] [address] [facility] [address] [address] Mikael Mccrary Social History Tobacco Use Types Packs/Day Years Used Date Smoking Tobacco: Never Assessed Comments Unknown Sex and Gender Information Value Date Recorded Sex Assigned at Female 10/29/2024 6:24 PM CDT Legal Sex Female 5:25 AM WIND TURBINE ENGINEER Gender Identity Female 10/29/2024 6:24 PM CDT Sexual Orientation Not on file documented as of this encounter Plan of Treatment Upcoming Encounters Date Type Department Care Team (Late st Contact Info) Description 02/18/2025 10:00 AM WIND TURBINE ENGINEER Procedure visit [facility] Urology [facility] [address] [facility] 260 [place] [address] [place] [address] [facility] 260 [place] [address] 02/18/2025 10:00 AM WIND TURBINE ENGINEER Procedure visit [facility] Urology [facility] [address] [facility] 260 [place] [address] 04/09/2025 2:00 PM WIND TURBINE ENGINEER Office Visit [facility] Heart and Vascular - [address] [facility] [address] [address] [facility] ASHLEY 300 [place] [address] Nica Coronel, DANIEL [address] [facility] 300 [place] [address] 04/16/2025 11:00 AM WIND TURBINE ENGINEER Appointment [facility] Services [place] [phone] Saray Luu MD [address] [place] [address] 280 [place] [address] 04/23/2025 11:40 AM CDT Office Visit [facility] Pulmonology - [address] [address] Saray Luu MD [address] [place] [address] 06/04/2025 11:20 AM CDT Office Visit [facility] Care - [address] [address] Chiqui Gill MD [address] [place] [address] 07/13/2025 11:00 AM CDT Office Visit [address] [address] Chiqui Gill MD [address] [place] [address] documented as of this encounter Visit Diagnoses Not on filedocumented in this encounter Additional Health Concerns Infection Onset Date Last Indicated Resolved Time R/O COVID-19 01/07/2020 01/07/2020 01/10/2020 1:31 AM WIND TURBINE ENGINEER R/O COVID-19 10/01/2020 10/01/2020 10/02/2020 1:37 AM CDT R/O COVID-19 03/08/2021 03/08/2021 03/09/2021 1:20 AM WIND TURBINE ENGINEER COVID-19 03/08/2021 03/08/2021 04/07/2021 2:19 AM WIND TURBINE ENGINEER R/O COVID-19 03/14/2022 03/14/2022 03/14/2022 9:28 PM WIND TURBINE ENGINEER documented as of this encounter Care Teams Stereoptic Projection Topographer Relationship Specialty [place] [address] [phone] PCP - General Internal Medicine 12/13/17 documented as of this encounter
--- OUTSIDE RECORDS SUMMARY | 2025-01-30 09:17 | XMS_ITS | Encounter Summary ---
Author Organization [facility] Address [address] [place] [address] Care Team Providers Care It Service Technician Name Role Phone Chiqui Gill MD Primary Care Provider [phone] Encounter Details Date Type Department Care Team (Late st Contact Info) Description 09/24/2000 Outpatient Historical [facility] Health Medical [place] [address] [facility] [address] [address] Mikael Mccrary Social History Tobacco Use Types Packs/Day Years Used Date Smoking Tobacco: Never Assessed Comments Unknown Sex and Gender Information Value Date Recorded Sex Assigned at Female 10/29/2024 6:24 PM CDT Legal Sex Female 5:25 AM SHAREPOINT TRAINER Gender Identity Female 10/29/2024 6:24 PM CDT Sexual Orientation Not on file documented as of this encounter Plan of Treatment Upcoming Encounters Date Type Department Care Team (Late st Contact Info) Description 02/18/2025 10:00 AM SHAREPOINT TRAINER Procedure visit [facility] Urology [facility] [address] [facility] 260 [place] [address] [place] [address] [facility] 260 [place] [address] 02/18/2025 10:00 AM SHAREPOINT TRAINER Procedure visit [facility] Urology [facility] [address] [facility] 260 [place] [address] 04/09/2025 2:00 PM SHAREPOINT TRAINER Office Visit [facility] Heart and Vascular - [address] [facility] [address] [address] [facility] ASHLEY 300 [place] [address] Nica Coronel, DANIEL [address] [facility] 300 [place] [address] 04/16/2025 11:00 AM SHAREPOINT TRAINER Appointment [facility] [place] [phone] Saray Luu MD [address] [place] [address] 280 [place] [address] 04/23/2025 11:40 AM CDT Office Visit [facility] Pulmonology - [address] [address] Saray Luu MD [address] [place] [address] 06/04/2025 11:20 AM CDT Office Visit [facility] Care - [address] [address] Chiqui Gill MD [address] [place] [address] 07/13/2025 11:00 AM CDT Office Visit [address] [address] Chiqui Gill MD [address] [place] [address] documented as of this encounter Visit Diagnoses Not on filedocumented in this encounter Additional Health Concerns Infection Onset Date Last Indicated Resolved Time R/O COVID-19 01/07/2020 01/07/2020 01/10/2020 1:31 AM SHAREPOINT TRAINER R/O COVID-19 10/01/2020 10/01/2020 10/02/2020 1:37 AM CDT R/O COVID-19 03/08/2021 03/08/2021 03/09/2021 1:20 AM SHAREPOINT TRAINER COVID-19 03/08/2021 03/08/2021 04/07/2021 2:19 AM SHAREPOINT TRAINER R/O COVID-19 03/14/2022 03/14/2022 03/14/2022 9:28 PM SHAREPOINT TRAINER documented as of this encounter Care Teams It Service Technician Relationship Specialty [place] [address] [phone] PCP - General Internal Medicine 12/13/17 documented as of this encounter
--- OUTSIDE RECORDS SUMMARY | 2025-01-30 09:17 | XMS_ITS | Encounter Summary ---
Author Organization [facility] Address [address] [place] [address] Care Team Providers Care Aerial Hurricane Hunter Name Role Phone Chiqui Gill MD Primary Care Provider [phone] Encounter Details Date Type Department Care Team (Latest Contact Info) Description 06/23/2005 Outpatient Historical [facility] Brayan Rhoades MD NO ADDRESS ON FILE Other Enthesopathy of Ankle and Tarsus (Primary Dx) Social History Tobacco Use Types Packs/Day Years Used Date Smoking Tobacco: Never Assessed Comments Unknown Sex and Gender Information Value Date Recorded Sex Assigned at Female 10/29/2024 6:24 PM CDT Legal Sex Female 5:25 AM WEB CONSULTANT Gender Identity Female 10/29/2024 6:24 PM CDT Sexual Orientation Not on file documented as of this encounter Plan of Treatment Upcoming Encounters Date Type Department Care Team (Late st Contact Info) Description 02/18/2025 10:00 AM WEB CONSULTANT Procedure visit [facility] [address] [facility] 260 [place] [address] [place] [address] [facility] 260 [place] [address] 02/18/2025 10:00 AM WEB CONSULTANT Procedure visit [facility] [address] [facility] 260 [place] [address] 04/09/2025 2:00 PM WEB CONSULTANT Office Visit [facility] Heart and Vascular - [address] [facility] 300 [address] [facility] 300 [place] [address] Nica Coronel, DANIEL [address] [facility] 300 [place] [phone] 04/16/2025 11:00 AM WEB CONSULTANT Appointment [facility] [address] [place] [address] Saray Luu MD [address] [place] [address] 280 [place] [address] 04/23/2025 11:40 AM CDT Office Visit [facility] Pulmonology - [address] [place] [address] Saray Luu [place] [address] [place] [address] 280 [place] [phone] 06/04/2025 11:20 AM CDT Office Visit [facility] Primary Care - [address] 200 [place] [address] Chiqui Gill MD [address] [place] [address] 07/13/2025 11:00 AM CDT Office Visit [address] 200 [place] [address] Chiqui Gill MD [address] [place] [address] documented as of this encounter Procedures Procedure Name Priority Date/Time Associated Diagnosis Comments POC GLUCOSE Routine 06/23/2005 2:10 PM CDT POC GLUCOSE Routine 06/23/2005 8:51 AM CDT HEMOGLOBIN AND HEMATOCRIT Routine 06/09/2005 9:47 AM CDT documented in this encounter Results * (ABNORMAL) POC GLUCOSE (06/23/2005 2:10 PM CDT) GLUCOSE POC 130(H) 65 - 109 mg/dL INTERFACE SYSTEM 06/23/2005 2:10 PM CDT us Brayan Rhoades MD POINT OF CARE TESTING Final Result Performing Organization Address [facility] Phone Number INTERFACE SYSTEM Refer to clinic/hospital department * POC GLUCOSE (06/23/2005 8:51 AM CDT) GLUCOSE POC 106 65 - 109 mg/dL INTERFACE SYSTEM 06/23/2005 8:51 AM CDT Result Bell Rhoades MD POINT OF CARE TESTING Final Result Performing Organization Address [facility] Phone Number INTERFACE SYSTEM Refer to clinic/hospital department * HEMOGLOBIN AND HEMATOCRIT (06/09/2005 9:47 AM CDT) HEMOGLOBIN 14.1 11.8 - 14.8 g/dL INTERFACE SYSTEM HEMATOCRIT 42.0 35.5 - 44.0 % INTERFACE SYSTEM 06/09/2005 9:47 AM CDT Result Bell Rhoades MD HEMATOLOGY ORDERABLES Final Result Performing Organization Address [facility] Phone Number INTERFACE SYSTEM Refer to clinic/hospital department documented in this encounter Visit Diagnoses Diagnosis Other enthesopathy of ankle and tarsus- Primary documented in this encounter Additional Health Concerns Infection Onset Date Last Indicated Resolved Time R/O COVID-19 01/07/2020 01/07/2020 01/10/2020 1:31 AM WEB CONSULTANT R/O COVID-19 10/01/2020 10/01/2020 10/02/2020 1:37 AM CDT R/O COVID-19 03/08/2021 03/08/2021 03/09/2021 1:20 AM WEB CONSULTANT COVID-19 03/08/2021 03/08/2021 04/07/2021 2:19 AM WEB CONSULTANT R/O COVID-19 03/14/2022 03/14/2022 03/14/2022 9:28 PM WEB CONSULTANT documented as of this encounter Care Teams Aerial Hurricane Hunter Relationship Specialty [place] [address] [address] PCP - General Internal Medicine 12/13/17 documented as of this encounter
--- OUTSIDE RECORDS SUMMARY | 2025-01-30 09:17 | XMS_ITS | Clinical Summary ---
Author Organization [employer] [facility] Address [address] [place] [address] Care Team Providers Care Paper Production Engineer Name Role Phone PcpRose Primary Care Provider [phone] Social History Tobacco Use Types Packs/Day Years Used Date Smoking Tobacco: Never Assessed Comments Unknown Sex and Gender Information Value Date Recorded Sex Assigned at Not on file Legal Sex Female 9:06 PM EST Gender Identity Not on file Sexual Orientation Not on file Plan of Treatment Not on file Medical Devices Not on file Care Teams Paper Production Engineer Relationship Specialty Start Date End Date Rose Beal PCP - General Family Medicine 03/10/20
--- OUTSIDE RECORDS SUMMARY | 2025-01-30 09:17 | XMS_ITS | Encounter Summary ---
Author Organization [facility] Address [address] [place] [address] Care Team Providers Care Radio Television Announcer Name Role Phone Chiqui Gill MD Primary Care Provider [phone] Encounter Details Date Type Department Care Team (Late st Contact Info) Description 11/19/2000 Outpatient Historical [facility] Health Medical [place] [address] [facility] [address] [address] William Mccrary MD NO ADDRESS ON FILE Social History Tobacco Use Types Packs/Day Years Used Date Smoking Tobacco: Never Assessed Comments Unknown Sex and Gender Information Value Date Recorded Sex Assigned at Female 10/29/2024 6:24 PM CDT Legal Sex Female 5:25 AM WEB SERVICES PROFESSIONAL Gender Identity Female 10/29/2024 6:24 PM CDT Sexual Orientation Not on file documented as of this encounter Plan of Treatment Upcoming Encounters Date Type Department Care Team (Late st Contact Info) Description 02/18/2025 10:00 AM WEB SERVICES PROFESSIONAL Procedure visit [facility] Urology [facility] [address] [facility] [address] [facility] [facility] [address] [place] [address] [place] [address] [facility] [address] [place] [address] 02/18/2025 10:00 AM WEB SERVICES PROFESSIONAL Procedure visit [facility] [address] [facility] [address] [place] [address] 04/09/2025 2:00 PM WEB SERVICES PROFESSIONAL Office Visit [facility] Heart and Vascular - [address] [address] [place] [phone] Nica Coronel, [place] [address] [facility] 300 [place] [address] 04/16/2025 11:00 AM WEB SERVICES PROFESSIONAL Appointment [facility] Services [place] [phone] Saray Luu MD [address] [place] [address] 04/23/2025 11:40 AM CDT Office Visit [facility] Pulmonology - [address] [address] Saray Luu MD [address] [place] [address] 06/04/2025 11:20 AM CDT Office Visit [address] [address] Chiqui Gill MD [address] [place] [address] 07/13/2025 11:00 AM CDT Office Visit [address] [address] Chiqui Gill MD [address] [place] [address] documented as of this encounter Visit Diagnoses Not on filedocumented in this encounter Additional Health Concerns Infection Onset Date Last Indicated Resolved Time R/O COVID-19 01/07/2020 01/07/2020 01/10/2020 1:31 AM WEB SERVICES PROFESSIONAL R/O COVID-19 10/01/2020 10/01/2020 10/02/2020 1:37 AM CDT R/O COVID-19 03/08/2021 03/08/2021 03/09/2021 1:20 AM WEB SERVICES PROFESSIONAL COVID-19 03/08/2021 03/08/2021 04/07/2021 2:19 AM WEB SERVICES PROFESSIONAL R/O COVID-19 03/14/2022 03/14/2022 03/14/2022 9:28 PM WEB SERVICES PROFESSIONAL documented as of this encounter Care Teams Radio Television Announcer Relationship Specialty [place] [address] [address] PCP - General Internal Medicine 12/13/17 documented as of this encounter
--- OUTSIDE RECORDS SUMMARY | 2025-01-30 09:18 | XMS_ITS | Clinical Summary ---
Author Organization [facility] Address [address] [place] [phone] Phone Care Team Providers Care Investigator Welfare Name Role Phone Chiqui Gill MD Primary Care Provider [phone] Allergies Active Allergy Reactions Criticality Noted Date Comments Adhesive Tape Other (See Comments) 11/17/2008 Blisters skin Adhesive Tape-Silicones Rash Low 01/09/2025 Ceftizoxime Sodium Nausea and Vomiting Low 12/17/19 16 Cephalexin Hives High 10/14/2008 Clarithromycin Other (See Comments) 11/27/2017 Upset GI Metformin Diarrhea Low 11/27/2017 Montelukast Other (See Comments) Low 07/26/2014 Other reaction(s): Other (See comments) brusing brusing Montelukast Sodium Other (See Comments) 016 bruising Oxycodone-Acetaminophen Hallucination Medium 9 Red Dye Swelling Low 06/07/2023 Lip and tongue swelling ( red sewing thread) took benadryl Sulfamethoxazole Other (See Comments) 6 Sulfamethoxazole-Trimetho prim Unknown 11/27/2017 Other reaction(s): Unknown Tirzepatide Other (See Comments) 01/29/2025 nausea Triamterene-Hydrochloroth iazid Other (See Comments) 11/27/2017 INCR BS Medications lancets 1 Each by Misc.(Non-Drug; Combo Route) route 3 times daily. TrueTest lancets Active blood sugar diagnostic (ONETOUCH ULTRA TEST MISC) 1 Strip by Misc.(Non-Drug; Combo Route) route 3 times daily. OneTouch Ultra test strip Active Cholecalciferol, Vitamin D3, (VITAMIN D3) 2,000 unit Capsule Take 2,000 Units by mouth daily. Active ferrous sulfate 325 mg (65 mg iron) tablet Take 325 mg by mouth daily. Active calcium carbonate (CALCIUM 600 ORAL) Take 1 Tablet by mouth daily. Active omeprazole (PriLOSEC) 20 mg Capsule, Delayed Release(E.C.) Take 20 mg by mouth 1 time daily as needed. Active multivit,tx with iron,minerals (COMPLETE MULTIVITAMIN ORAL) Take 1 Tablet by mouth daily. Active guaiFENesin (MUCINEX) 600 mg Extended Release Biphasic tablet Take 1 Tablet (600 mg) by mouth 2 times daily. 023 Active bi-level machine CWP with heated humidifier. Length of Need: 99 mo mask fit to comfort with headgear 1 per 6 mo, mask only 1 per 3 mo,1-2 cushions per mo, Tubing heated 1 per 3 mo, water chamber 1 per 6 months, chin strap 1 per 6 months, filters disposable 2 per month, filters reusable 1 per 6 months DME 1 Each 024 Active immun glob G,IgG,/pro/IgA 0-50 (HIZENTRA SUBCUT) Inject 16 Grams by subcutaneous injection every Sunday. Infusion weekly, will give 06/11 dose on 06/10 Active clobetasoL (TEMOVATE) 0.05 % CreamIndications: Dermatitis Apply to affected area 2 times daily. 30 Gram 024 Active famotidine (PEPCID) 40 mg tablet Take 1 Tablet (40 mg) by mouth 2 times daily. 20 Tablet 024 Active Insulin [place], Disposable, (BD Ultra-Fine Short Pen Needle) 31 gauge x 5/16 Needle USE WITH INSULIN 4 TIMES DAILY 200 Each 2 Active triamcinolone acetonide (KENALOG) 0.1 % Cream Apply to affected area every 12 hours. 024 Active clopidogreL (PLAVIX) 75 mg TabletIndications :Hospital discharge follow-up,Stroke- like symptoms,Slurred speech TAKE 1 TABLET BY MOUTH EVERY DAY 100 Tablet 3 025 Active cyanocobalamin, vitamin B-12, 1,[address] 2,000 mcg under tongue daily. 60 Lozenge 5 025 Active potassium CHLORIDE (KLOR-CON M10) 10 mEq Extended Release tablet TAKE 1 TABLET (10 MEQ) BY MOUTH EVERY OTHER DAY. 50 Tablet 3 Active insulin glargine-yfgn (Semglee,insulin glargine-yfgn,) 100 unit/mL vial Inject 64 Units by subcutaneous injection daily with breakfast. 20 mL 025 Active insulin aspart, niacinamide, (Fiasp FlexTouch U-100 Insulin) 100 unit/mL (3 mL) Insulin Pen 0-70, 0 UNITS, INJECT 3 TIMES A DAY BEFORE MEALS 71-120: 5 UNITS, 121-130: 7 UNITS, 131-200: 10 UNITS, 201-250: 15 UNITS, 251-300: [address] 5 mL 1 Active levothyroxine 125 mcg tabletIndications :Thyroid disease TAKE 1 TABLET BY MOUTH EVERY DAY IN THE MORNING 90 Tablet 4 Active loratadine (CLARITIN) 10 mg tabletIndications :Sinusitis, unspecified chronicity, unspecified location TAKE 1 TABLET BY MOUTH EVERY DAY 90 Tablet 2 Active Insulin Syringe-Needle U-100 (BD Insulin Syringe Ultra-Fine) 1 mL 30 gauge x 1/2 Syringe Use to inject insulin once daily. 200 Each 3 Active evolocumab (Repatha SureClick) 140 mg/mL Pen InjectorIndicatio ns:Bilateral carotid artery stenosis,Mixed hyperlipidemia Inject 1 mL (140 mg) by subcutaneous injection every 2 weeks. 7 mL 3 025 Active methocarbamoL (ROBAXIN) 1,000 mg Tablet tablet Take 1 Tablet (1,000 mg) by mouth 4 times daily as needed for Spasm. 30 Tablet Active albuterol sulfate HFA 90 mcg/actuation aerosol inhalerIndication s:Asthma-COPD overlap syndrome (CMS/HCC) Take 2 Puffs by inhalation every 6 hours as needed for Shortness of Breath. 8.5 Gram 5 Active Trelegy Ellipta 200-62.5-25 mcg Disk with DeviceIndications :Asthma-COPD overlap syndrome (CMS/HCC) Take 1 Puff by inhalation daily. 28 Each 6 025 Active fluticasone propionate (FLONASE) 50 mcg/spray Jackson, Suspension nasal inhalerIndication s:Post-nasal drip Administer 2 Sprays in each nostril daily. 48 mL 5 025 Active traMADol (ULTRAM) 50 mg tabletIndications :Chronic pain of left ankle Take 1 Tablet (50 mg) by mouth nightly as needed for Pain. 10 Tablet 025 Active aspirin (ECOTRIN EC) 81 mg Tablet, Delayed Release (E.C.)Indications :NSTEMI (non-ST elevated myocardial infarction) (CMS/HCC),History of TIA (transient ischemic attack) Take 1 Tablet (81 mg) by mouth daily. 30 Tablet 5 025 Active ondansetron (ZOFRAN ODT) 4 mg Tablet, Rapid Dissolve Take 1 Tablet (4 mg) by mouth every 12 hours as needed for Nausea/Emesis. Dissolve tablet on top of tongue, then swallow with saliva. 20 Tablet 025 Active Lantus U-100 Insulin 100 unit/mL vial INJECT 64 UNITS BY SUBCUTANEOUS INJECTION DAILY WITH BREAKFAST 60 mL 1 025 Active atorvastatin (LIPITOR) 80 mg tabletIndications :NSTEMI (non-ST elevated myocardial infarction) (CMS/HCC),Mixed hyperlipidemia,Ao rtic atherosclerosis,T ype 2 diabetes mellitus with stage 3a chronic kidney disease, with long-term current use of insulin ([facility]),History of TIA (transient ischemic attack) Take 1 Tablet (80 mg) by mouth daily. 100 Tablet 3 025 Active furosemide (LASIX) 20 mg tablet TAKE 1 TABLET BY MOUTH EVERY OTHER DAY 15 Tablet 1 025 Active Blood-Glucose Sensor (FreeStyle Will 3 Plus Sensor) Device USE TO MONITOR BLOOD SUGAR. CHANGE EVERY 15 DAYS. 1 Each 1 025 Active DULoxetine (CYMBALTA) 60 mg Capsule, Delayed Release(E.C.) TAKE 1 CAPSULE BY MOUTH EVERY DAY WITH BREAKFAST 100 Capsule 3 025 Active pregabalin (LYRICA) 75 mg CapsuleIndication s:Type 2 diabetes mellitus with stage 3a chronic kidney disease, with long-term current use of insulin ([facility]),Neuropa thy Take 2 Capsules (150 mg) by mouth 2 times daily. 180 Capsule 025 Active lisinopriL (PRINIVIL) 40 mg tabletIndications :Hypertensive heart disease with diastolic heart failure and stage 3a chronic kidney disease, unspecified HF chronicity (CMS/HCC) Take 1 in am 1in pm 180 Tablet 3 Active amLODIPine (NORVASC) 5 mg tabletIndications :Hypertensive heart disease with diastolic heart failure and stage 3a chronic kidney disease, unspecified HF chronicity (CMS/HCC) Take 1.5 Tablets (7.5 mg) by mouth daily. 135 Tablet 3 025 Active semaglutide (Ozempic) 0.25 mg or 0.5 mg (2 mg/3 mL) Pen InjectorIndicatio ns:Type 2 diabetes mellitus with stage 3a chronic kidney disease, with long-term current use of insulin ([facility]),Hyperte nsive heart disease with diastolic heart failure and stage 3a chronic kidney disease, unspecified HF chronicity ([facility]/HCC) Inject 0.25 mg by subcutaneous injection every 7 days. 9 mL 3 Active dapagliflozin propanediol (Farxiga) 10 mg TabletIndications :Type 2 diabetes mellitus with stage 3a chronic kidney disease, with long-term current use of insulin ([facility]),Hyperte nsive heart and chronic kidney disease with heart failure and stage 1 through stage 4 chronic kidney disease, or chronic kidney disease ([facility]/HCC),Chronic heart failure with preserved ejection fraction (HFpEF) ([facility]),Current use of insulin ([facility]) Take 1 Tablet (10 mg) by mouth daily in the morning. 100 Tablet 3 Active DULoxetine (CYMBALTA) 60 mg Capsule, Delayed Release(E.C.) Take 1 Capsule (60 mg) by mouth daily. TAKE 1 CAPSULE BY MOUTH EVERY DAY WITH BREAKFAST. 100 Capsule 3 024 2024 Discontinued lisinopriL (PRINIVIL) 40 mg tablet Take 1 in am 1/2 in pm 145 Tablet 3 025 2024 Discontinued Blood-Glucose Sensor (FreeStyle Will 3 Sensor) Device USE TO MONITOR GLUCOSE CONTINUOUSLY. APPLY A SENSOR EVERY 14 DAYS. 6 Each 3 025 2024 Discontinued amLODIPine (NORVASC) 5 mg tablet TAKE 1 TABLET BY MOUTH EVERY DAY 100 Tablet 3 025 2024 Discontinued furosemide (LASIX) 20 mg tablet TAKE 1 TABLET BY MOUTH EVERY OTHER DAY 15 Tablet 1 025 2024 Discontinued pregabalin (LYRICA) 75 mg CapsuleIndication s:Type 2 diabetes mellitus with stage 3a chronic kidney disease, with long-term current use of insulin ([facility]/HCC),Neuropa thy TAKE 2 CAPSULES (150 MG) BY MOUTH 2 TIMES DAILY. 180 Capsule 025 2024 Discontinued(R eorder) Active Problems Patient Care Coordination No te Formatting of this note migh t be different from the original. [employer]-pt owns CARDIOLOGY - Ruddy Combs MD, FAC, [facility] [address] Direct Team Line: [phone] P: [phone] F: [phone] Problem Noted Date Diagnosed Date Morbid obesity with body mass index of 40.0-49.9 01/09/2025 Lower leg edema 10/30/2024 Overview (10/30/2024): 10/30/24: Patient not taking lasix, she is a school bus driver/teacher assistant. Encouraged to wear stockings, elevate legs. Assessment & Plan (10/30/2024 11:17 AM CDT): Encouraged to wear stockings, elevate legs. Left ankle pain 10/30/2024 Overview (10/30/2024): 10/30/24: Pt having left ankle pain for 2 months, worsening. She states it feels like it is going to break when walking. She had a tendon tear with no injury at all in the past. She had left ankle tendon repair previously. Will first check xray, trial brace, elevation, ice, exercises. She is using tylenol for pain. Cannot take nsaids, on plavix, CKD. Discussed trying to check MRI for tendon tear vs just referring to ortho. Will refer to ortho. Consulted Dr. Gill. Will provide a small amount of tramadol for patient to use nightly as needed for pain. Assessment & Plan (10/30/2024 11:51 AM CDT): Will first check xray, trial brace, elevation, ice, exercises. She is using tylenol for pain. Cannot take nsaids, on plavix. Discussed trying to check MRI for tendon tear vs just referring to ortho. Will refer to ortho. Consulted Dr. Gill. Will provide a small amount of tramadol for patient to use nightly as needed for pain. Acute sinusitis 10/30/2024 Overview (10/30/2024): 10/30/24: Pt has acute on chronic sinusitis, has 1 week chills, moderate sinus tenderness, pain, green mucus production. Will cover with augmentin, she has previously tolerated this. Assessment & Plan (10/30/2024 11:24 AM CDT): Will cover with augmentin, she has previously tolerated this. Lung nodule 10/17/2024 Post-nasal drip 10/17/2024 Cerebral microvascular disease 09/05/2024 Bilateral carotid artery stenosis 09/05/2024 Left Knee Osteoarthritis 01/15/2023 Fibromyalgia 01/15/2023 Chronic pain of left knee 01/15/2023 Tear of lateral meniscus of left knee, current 1 03/18/2022 H/O TIA (Plavix & ASA) 01/15/2023 Sciatica 01/15/2023 ANDREA (obstructive sleep apnea) 10/18/2022 Immunoglobulin deficiency 08/05/2021 Slurred speech 08/25/2020 Class 3 severe obesity due t o excess calories without serious comorbidity with body mass index (BMI) of 40.0 to 44.9 in adult 08/20/2019 Former cigarette smoker 08/20/2019 Daytime somnolence 04/15/2019 Lumbar radicular pain 10/17/2018 Assessment & Plan (11/11/2019 8:59 AM CDT): Suboptimal control. Assessment & Plan (11/04/2019 9:13 AM CDT): Suboptimal control. Hypertensive heart and chron ic kidney disease with heart failure and stage 1 through stage 4 chronic kidney disease, or chronic kidney disease 09/04/2018 Mixed hyperlipidemia 09/04/2018 Degenerative disease of nervous system, unspecif ied 09/04/2018 Aortic atherosclerosis 05/21/2018 Cervical radiculopathy, chronic 05/21/2018 Azotemia 01/01/2018 Bilateral occipital neuralgia 01/01/2018 Type 2 diabetes mellitus wit h diabetic chronic kidney disease 11/27/2017 Overview (12/14/2023): Farxiga was too expensive. Current use of insulin 11/27/2017 History of tobacco use 11/27/2017 Vocal cord dysfunction 11/27/2017 Common variable immunodeficiency 11/27/2017 PTSD (post-traumatic stress disorder) 11/27/2017 Atherosclerosis of [place] co ronary artery of [place] heart without angina pectoris 11/27/2017 Asthma-COPD overlap syndrome 11/27/2017 Heart failure with normal ejection fraction 11/12 Hyperlipemia 11/27/2017 Heart failure with preserved ejection fraction 1 Overview (12/14/2023): Farxiga was too expensive. Depression with anxiety 07/26/2014 GERD (gastroesophageal reflux disease) 5 Stroke-like symptoms Thyroid disease HTN (hypertension) Pneumonia of right lower lobe due to infectious organism COVID-19 virus detected Resolved Problems Problem Noted Date Diagnosed Date Resolved Date Substance abuse 09/01/2020 02/21/2021 Acute cystitis with hematuria 08/31/2020 08/31/2020 Chronic kidney disease, stage 3 09/04/2018 03/15/2022 Centrilobular emphysema 09/04/201811/13 Severe episode of recurrent major depressive disorder, without psychotic features 09/04/201802/2022 Moderate persistent asthma, uncomplicated 09/04/2018 05/26/2019 Type 2 diabetes mellitus with hyperglycemia 09/04/2018 05/26/2019 Acute on chronic combined sy stolic and diastolic CHF, NYHA class 2 08/02/2018 09/20/2018 Mild recurrent major depression 05/21/2018 03/15/2022 Congestive heart failure 01/01/201810/2018 Severe obesity (BMI 35.0-39. 9) with comorbidity 01/01/2018 05/26/2019 Neck pain without injury 01/01/2018 Overview (01/01/2018): differential soft tissue, mastoid, trigeminal neuralgia Panlobular emphysema 11/27/2017 019 Diabetes mellitus with neuropathy 11/27/2017 12/10/2017 Class 2 severe obesity due t o excess calories with serious comorbidity and body mass index (BMI) of 38.0 to 38.9 in adult 11/27/2017 2 Osteopenia 11/27/2017 12/10/2017 Chronic bronchitis 07/26/2014 5 Diabetes mellitus type 2, un controlled, without complications 07/26/2014 05/21/2018 Surgery aftercare 11/27/2008 05/26/2019 COPD with exacerbation 05/25 Encounters Date Type Department Care Team Description 01/29/2025 10:00 AM COMPOSITOR APPRENTICE Office Visit [facility] [address] [place] [address] Chiqui Gill MD Type 2 diabetes mellitus with stage 3a chronic kidney disease, with long-term current use of insulin (CMS/HCC) (Primary Dx); Frail elderly; Morbid obesity with body mass index of 40.0-49.9 (CMS/HCC); Hypertensive heart and chronic kidney disease with heart failure and stage 1 through stage 4 chronic kidney disease, or chronic kidney disease (CMS/HCC); Common variable immunodeficiency (CMS/HCC); Atherosclerosis of [place] coronary artery of [place] heart without angina pectoris; Chronic heart failure with preserved ejection fraction (HFpEF) (CMS/HCC); Current use of insulin (CMS/HCC); Asthma-COPD overlap syndrome (CMS/HCC); Hypertensive heart disease with diastolic heart failure and stage 3a chronic kidney disease, unspecified HF chronicity (CMS/HCC) 01/27/2025 External Device Data STL ABSTRACTION Provider, Abstract 01/27/2025 External Device Data STL ABSTRACTION Provider, Abstract 01/21/2025 [facility] [address] [place] [id number] Chiqui Gill MD Type 2 diabetes mellitus with stage 3a chronic kidney disease, with long-term current use of insulin (CMS/HCC); Neuropathy 01/21/[address] [place] [address] Chiqui Gill MD Type 2 diabetes mellitus with stage 3a chronic kidney disease, with long-term current use of insulin (CMS/HCC); Neuropathy 01/20/2025 Nurse Triage [address] [place] [address] Chiqui Gill MD 01/19/2025 Results Follow-Up [address] [place] [address] Chiqui Gill MD CBC WITH DIFFERENTIAL, MICROALBUMIN/CREATININE RATIO, RANDOM UR, HEMOGLOBIN A1C, Additional followed-up results: 3 01/19/[address] [place] [address] Chiqui Gill MD 01/18/[address] [address] Chiqui Gill MD 01/10/[address] [address] Chiqui Gill MD 01/09/2025 2:20 PM COMPOSITOR APPRENTICE Office Visit [address] [address] Chiqui Gill MD Type 2 diabetes mellitus with stage 3a chronic kidney disease, with long-term current use of insulin (CMS/HCC) (Primary Dx); Frail elderly; Mixed hyperlipidemia; Morbid obesity with body mass index of 40.0-49.9 (CMS/HCC); Hypertensive heart and chronic kidney disease with heart failure and stage 1 through stage 4 chronic kidney disease, or chronic kidney disease (CMS/HCC); Chronic heart failure with preserved ejection fraction (HFpEF) (CMS/HCC); Common variable immunodeficiency (CMS/HCC); Current use of insulin (CMS/HCC); Atherosclerosis of [place] coronary artery of [place] heart without angina pectoris; Asthma-COPD overlap syndrome ([facility]) 12/23/[address] [place] [address] Chiqui Gill MD NSTEMI (non-ST elevated myocardial infarction) ([facility]); Mixed hyperlipidemia; Aortic atherosclerosis; Type 2 diabetes mellitus with stage 3a chronic kidney disease, with long-term current use of insulin ([facility] H/O TIA (Plavix & ASA) 12/23/2024 Results Follow-Up [address] [place] [address] Chiqui Gill MD URINALYSIS WITH REFLEX CULTURE 12/19/2024 Telephone [facility] [address] [place] [address] Sarahy Gibbs MD Patient Communication 12/11/2024 10:51 AM CDT - 12/11/2024 11:59 PM CDT Hospital Encounter [facility] at [address] [place] [address] Chiqui Gill MD Discharge Disposition: Home or Self Care 12/11/2024 10:51 AM CDT - 12/11/2024 11:59 PM CDT Hospital Encounter [facility] at [address] [place] [address] Chiqui Gill MD Discharge Disposition: Home or Self Care 12/11/2024 Results Follow-Up [address] [place] [address] Chiqui Gill MD XR DEXA BONE DENSITY AXIAL 1 OR MORE SITES, MAMMO 3D GUMARO SCREEN BILAT W OR WO CAD 12/07/[address] [place] [address] Chiqui Gill MD Type 2 diabetes mellitus with stage 3a chronic kidney disease, with long-term current use of insulin ([facility]); Neuropathy 12/06/2024 Refill [facility] [id number] [place] [address] [address] [place] [address] Chiqui Gill MD 12/03/2024 Results Follow-Up [address] [place] [address] Chiqui Gill MD URINALYSIS WITH REFLEX CULTURE, URINE CULTURE 12/02/2024 Abstract [facility] - [address] [place] [address] Provider, Abstract 11/25/[address] [place] [address] Chiqui Gill MD Referral Request 11/19/[address] [place] [address] Chiqui Gill MD 11/15/2024 Patient Self-Triage [id number] [place] [address] 10/31/[address] [place] [address] Chiqui Gill MD NSTEMI (non-ST elevated myocardial infarction) ([facility]); H/O TIA (Plavix & ASA) from Last 3 Months Immunizations Immunization Administration Dates Next Due (ADACEL/BOOSTRIX)(10 YR UP) TDAP VACCINE, 0.5ML, IM 04/15/2019 (AREXVY)(60 YR UP) RSV, DEMIAN MBINANT, PROTEIN SUBUNIT RSVPREF, ADJUVANT RECONSTITUTED, 0.5 ML, PF 12/22/2022 (PFIZER JESSIKA)(12 YR UP PRIMA RY SERIES) COVID-19 VACCINE - EMERGENCY USE AUTHORIZATION, MRNA, JESSIKA(PF) 30 MCG/0.3 ML IM SUSP 10/26/2023 (PFIZER)(12 YR UP) COVID-19 VACCINE - EMERGENCY USE AUTHORIZATION, MRNA, [id number](PF) 30 MCG/0.3 ML IM SUSP 11/06/2022,10/06/2020,04/17/2020,03/28 (PNEUMOVAX 23)(50 YRS UP) PN EUMOCOCCAL POLYSACCHARIDE (PPV23) 0.5 ML, IM 01/16/2022,11/21/2020,09/05/2019 (PREVNAR 20)(6 WKS UP) PNEUM OCOCCAL CONJUGATE VACCINE 20-VALENT (PCV20), POLYSACCHARIDE [id number] CONJUGATE, ADJUVANT 0.5 ML (PF) IM 09/25/2023 (Pfizer Bivalent)(12 Yr Up) COVID-19 Vaccine - Emergency Use Authorization, MRNA, Lnp-S(Pf) 30 Mcg/0.3 Ml Susp 11/14/2021 (SHINGRIX)(50 YRS UP) ZOSTER VACCINE RECOMBINANT, 0.5 ML, IM 08/29/2017,05/16/2017 INFLUENZA VACCINE HIGH DOSE TRIVALENT SPLIT VIRUS, (65 YR UP), 0.5ML (PF), IM 10/26/2023 INFLUENZA VACCINE QUADRIVALE NT 6 MOS UP CELL DERIVED PF IM 10/16/2018 INFLUENZA VACCINE QUADRIVALE NT 6 MOS UP PF IM 10/12/2019 Influenza Seasonal Unspecifi ed Formulation IM 11/06/2022,10/21/2020,10/16/2018,10/27,10/21/2015,11/15/2014,10/25/2013 Influenza Vaccine High Dose 65+ Yrs IM 5,11/14/2021 Influenza Vaccine Split 3+ Yrs PF IM 11/12/2014 PNEUMOVAX (PPSV23) pneumococ corey polysaccharide 23-valent Vaccine 01/16/2022,11/23/2015,12/30/2011 PREVNAR (PCV13) pneumococcal 13-valent conjugate Vaccine 01/10/2017 Family History Medical History Relation Name Comments High Cholesterol Brother 1 Donato Peterson Hypertension Brother 1 Donato Peterson Diabetes Brother 2 Donato He was recently diagnosed with being a [place] Diabetic. Cancer - Other Father Dante Throat Cancer vocal cords Heart Disease Father Dante Passed Oct.21 Other Father Dante CA Stroke Father Dante Heart Condition , Clogged Caroited Arties, vocal box cancer Tuberculosis Maternal Grandfather Cancer Maternal Grandmother Simin Goodwin Diabetes Maternal Grandmother Simin Goodwin Unknown Maternal Grandmother Simin Goodwin Ment al Illness Arthritis-osteo Mother Melina COPD Mother Melina Cancer Mother Melina cervic or uteri ne cancer Glaucoma Mother Melina High Cholesterol Mother Melina rt. kidney removed, both hips replaced, high cholestrol, high blood pressure, glacoma Hypertension Mother Melina Kidney Disease Mother Melina Right Kidney Removed Osteoporosis Mother Melina Ovarian Cancer Mother Melina Respiratory Disease Mother Melina COPD Skin Cancer Mother Melina Thyroid Disease Mother Melina Heart Attack Paternal Grandfather Kathleen Heart Disease Paternal Grandfather Kathleen Unknown Paternal Grandmother Simin Sister Diabetes Sister 1 Ebony Healthy Sister 1 Ebony High Cholesterol Sister 1 Ebony Hypertension Sister 1 Ebony Osteoporosis Sister 1 Ebony Unknown Sister 1 Ebony Diabetes Sister 2 Ebony Healthy Sister 2 Ebony High Cholesterol Sister 2 Ebony Hypertension Sister 2 Ebony Osteoporosis Sister 2 Ebony Healthy Sister 3 [place] High Cholesterol Sister 3 Viola We do not s peak with each other so I dont know about her health Unknown Sister 3 Viola Diabetes Son Christopher Emphysema Son Christopher Respiratory Disease Son Christopher COPD Breast Cancer Neg Hx Colon Cancer Neg Hx Pancreatic Cancer Neg Hx Thyroid Cancer Neg Hx Relation Name Status Comments Brother 1 Donato Peterson Alive Brother 2 Donato Alive Father Dante Maternal Grandfather Maternal Grandmother Simin Goodwin Mother Melina Alive Paternal Grandfather Kathleen Paternal Grandmother Simin Sister 1 Ebony Alive Sister 2 Ebony Alive Sister 3 Viola Alive Son Christopher Alive Social History Tobacco Use Types Packs/Day Years Used Date Smoking Tobacco: Former Cigarettes 2 37 0 07/01/1968 - 07/01/2005 Smokeless Tobacco: Never Tobacco Cessation:Counseling Given: Not Answered Alcohol Use Standard Drinks/Week Comments No 0 [...] PM CDT Legal Sex Female 5:25 AM COMPOSITOR APPRENTICE Gender Identity Female 10/29/2024 6:24 PM CDT Sexual Orientation Not on file Last Filed Vital Signs Vital Sign Reading Time Taken Comments Blood Pressure 140/62 01/29/2025 9:36 AM COMPOSITOR APPRENTICE Pulse 61 01/29/2025 9:36 AM COMPOSITOR APPRENTICE Temperature 36.2 C (97.1 F) 01/29/2025 9:36 AM COMPOSITOR APPRENTICE Respiratory Rate 18 10/17/2024 10:26 AM CDT Oxygen Saturation 94% 01/29/2025 9:36 AM COMPOSITOR APPRENTICE Inhaled Oxygen Concentration - - Weight 98.9 kg (218 lb) 01/29/2025 9:36 AM COMPOSITOR APPRENTICE Height 154.9 cm (5' 1) 01/29/2025 9:36 AM COMPOSITOR APPRENTICE Body Mass Index 41.19 01/29/2025 9:36 AM COMPOSITOR APPRENTICE Plan of Treatment Upcoming Encounters Date Type Department Care Team (Late st Contact Info) Description 02/18/2025 10:00 AM COMPOSITOR APPRENTICE Procedure visit [facility] Urology [facility] [id number] [place] [address] [address] [place] [address] [place] [address] [facility] [address] [place] [address] 02/18/2025 10:00 AM COMPOSITOR APPRENTICE Procedure visit [facility] Urology [facility] [id number] [place] [phone] 04/09/2025 2:00 PM COMPOSITOR APPRENTICE Office Visit [facility] Heart and Vascular - [address] [facility] 300 [address] [facility] [address] [place] [address] [place] [address] [facility] [address] [place] [address] 04/16/2025 11:00 AM COMPOSITOR APPRENTICE Appointment [facility] Imaging Services [address] [address] Saray Luu MD [address] [place] [phone] 04/23/2025 11:40 AM CDT Office Visit [facility] Pulmonology - [address] [address] Saray Luu MD [address] [place] [phone] 06/04/2025 11:20 AM CDT Office Visit [facility] Primary Care - [address] [address] Chiqui Gill MD [address] [place] [phone] 07/13/2025 11:00 AM CDT Office Visit [facility] Primary Care - [address] [address] Chiqui Gill MD [address] [place] [phone] Health Maintenance Due Date Last Done Comments FIT-DNA Q 3 years 10/20/1999 FIT/FOBT Q 1 year 10/20/1999 Flex Sig/CT Colonography Q 5 years 10/20/1999 COVID-19 Vaccine (8 - Pfizer risk 2024- season) 2025 01/11/2025, 10/26/2023, 11/06/2022, Additional history exists DIABETES HBA1C Q 6 MONTHS 07/20/20252024, 07/24/2024, 03/17/2024, Additional history exists DIABETES ANNUAL FOOT EXAM 07/24/20252024, 03/17/2024, 12/14/2023, Additional history exists DIABETES ANNUAL RETINAL EXAM 09/26/2025, 09/11/2024, 09/24/2023, Additional history exists BREAST CANCER SCREENING 12/11/2025 12/12/19, 10/27/2023, 10/21/2022, Additional history exists DIABETES MICROALBUMIN ANNUAL SCREEN 01/19/2026 01/19/2025, 10/17/2024, 09/05/2024, Additional history exists LDL CHOLESTEROL ANNUAL 01/19/2026 , 09/05/2024, 03/17/2024, Additional history exists COLORECTAL SCREENING 05/06/2027 05/05/2024, 05/05/2024, 01/28/2019, Additional history exists Colorectal Cancer Screening 05/06/2027 DTAP/TDAP/TD VACCINES (2 - T d or Tdap) 04/14/2029 04/15/2019 OSTEOPOROSIS SCREENING 12/11/2029 , 03/02/2021, 01/21/2019 ZOSTER VACCINE Completed 08/29/2017, 05/16/2017 RSV VACCINE (60+ or ) Completed 12/22/2022 PNEUMOCOCCAL VACCINE 50+ YEARS Completed 0 09/25/2023, 01/16/2022, 01/16/2022, Additional history exists Medicare Advantage ([place]) Preventative Visit/Annual Wellness Visit Completed 03/17/2024, 04/11/2023, 05/17/2022, Additional history exists INFLUENZA VACCINE Completed 09/22/2024, , 11/06/2022, Additional history exists KHE eGFR (Auto Order) Completed 01/19/2025 , 09/27/2024, 09/05/2024, Additional history exists KHE uACR (Auto Order) Completed 01/19/2025 , 10/17/2024, 09/05/2024, Additional history exists Medical Devices Implanted Type Area Interlocking Installer Device Identifier Shelf Expiration Date Model / Serial / Lot Kalie Britton [id number] - [id number] Implanted:Qty : 1 on 12/29/2014 by Ke Morel MD at [facility] N/A: Bladder AMS [facility] [employer] 06/30/2017 [id number] / / [id number] Description:[facility]#[id number] Procedures Procedure Name Priority Date/Time Associated Diagnosis Comments LDL CHOLESTEROL, DIRECT Routine 01/19/2025 9:47 AM COMPOSITOR APPRENTICE Type 2 diabetes mellitus with stage 3a chronic kidney disease, with long-term current use of insulin (CMS/HCC) Mixed hyperlipidemia Atherosclerosis of [place] coronary artery of [place] heart without angina pectoris TSH REFLEXIVE Routine 01/19/2025 9:47 AM COMPOSITOR APPRENTICE Type 2 diabetes mellitus with stage 3a chronic kidney disease, with long-term current use of insulin (CMS/HCC) Mixed hyperlipidemia COMPREHENSIVE METABOLIC PANEL Routine 01/19/2025 9:47 AM COMPOSITOR APPRENTICE Type 2 diabetes mellitus with stage 3a chronic kidney disease, with long-term current use of insulin (CMS/HCC) Hypertensive heart and chronic kidney disease with heart failure and stage 1 through stage 4 chronic kidney disease, or chronic kidney disease (CMS/HCC) CBC WITH DIFFERENTIAL Routine 01/19/2025 9:47 AM COMPOSITOR APPRENTICE Type 2 diabetes mellitus with stage 3a chronic kidney disease, with long-term current use of insulin (CMS/HCC) Hypertensive heart and chronic kidney disease with heart failure and stage 1 through stage 4 chronic kidney disease, or chronic kidney disease (CMS/HCC) HEMOGLOBIN A1C Routine 01/19/2025 9:47 AM COMPOSITOR APPRENTICE Type 2 diabetes mellitus with stage 3a chronic kidney disease, with long-term current use of insulin (CMS/HCC) MICROALBUMIN/CREATINI NE RATIO, RANDOM UR Routine 01/19/2025 9:47 AM COMPOSITOR APPRENTICE Type 2 diabetes mellitus with stage 3a chronic kidney disease, with long-term current use of insulin (CMS/HCC) Hypertensive heart and chronic kidney disease with heart failure and stage 1 through stage 4 chronic kidney disease, or chronic kidney disease (CMS/HCC) URINALYSIS WITH REFLEX CULTURE Routine 12/22/2024 11:32 AM COMPOSITOR APPRENTICE UTI symptoms MAMMO 3D GUMARO SCREEN BILAT W OR WO CAD Routine 12/11/2024 11:45 AM CDT Encounter for screening mammogram for malignant neoplasm of breast XR DEXA BONE DENSITY AXIAL 1 OR MORE SITES Routine 12/11/2024 11:24 AM CDT Osteopenia of multiple sites URINALYSIS WITH REFLEX CULTURE Routine 12/02/2024 12:35 PM CDT UTI symptoms URINE CULTURE Routine 12/02/2024 12:35 PM CDT HM DIABETES EYE EXAM Routine 09/26/2024 9:53 AM CDT COLONOSCOPY REPORT 05/05/2024 10 :57 AM CDT from Last 3 Months or Most Recently Relevant to Health Maintenance Results * TSH REFLEXIVE (01/19/2025 9:47 AM COMPOSITOR APPRENTICE) TSH 0.49 0.40 - 4.50 mIU/L [facility] Comment: FASTING:YES FASTING: YES Test Performed at: [facility] [address] [place] [address] Abiodun Ramos Vo Blood 01/19/2025 9:47 AM COMPOSITOR APPRENTICE 01/19/2025 9:47 AM COMPOSITOR APPRENTICE us Chiqui Gill MD CHEMISTRY ORDERABLES Final Resul t [facility] [phone] [place] [address] [place] [address] * (ABNORMAL) MICROALBUMIN/CREATININE RATIO, RANDOM UR (01/19/2025 9:47 AM COMPOSITOR APPRENTICE) CREATININE, URINE 94 20 - 275 mg/dL [facility] ALBUMIN, URINE 2.9 See Note: mg/dL [facility] Comment: Reference Range: Reference Range Not established ALB/CREAT RATIO, URINE 31(H) <30 mg/g creat [facility] Comment: The ADA defines abnormalities in albumin excretion as follows: Albuminuria Category Result (mg/g creatinine) Normal to Mildly increased <30 Moderately increased 30-299 Severely increased > OR = 300 The ADA recommends that at least two of three specimens collected within a 3-6 month period be abnormal before considering a patient to be within a diagnostic category. FASTING:YES FASTING: YES Test Performed at: [facility] [address] [address] Abiodun Lemon MD Urine URINE SPECIMEN OBTAINED BY CLEAN CATCH PROCEDURE / Unknown 01/19/2025 9:47 AM COMPOSITOR APPRENTICE 01/19/2025 9:47 AM COMPOSITOR APPRENTICE us Chiqui Gill MD URINE ORDERABLES Final Result [facility] [phone] [facility] [address] [address] * (ABNORMAL) CBC WITH DIFFERENTIAL (01/19/2025 9:47 AM COMPOSITOR APPRENTICE) WBC 6.7 3.8 - 10.8 Thousand/ uL [facility] RBC 4.75 3.80 - 5.10 Million/u L [facility] HEMOGLOBIN 12.8 11.7 - 15.5 g/dL [facility] HEMATOCRIT 40.7 35.9 - 46.0 % [facility] MCV 85.7 81.4 - 101.7 fL [facility] MCH 26.9(L) 27.0 - 33.0 pg [facility] MCHC 31.4(L) 31.6 - 35.4 g/dL [facility] RDW 13.2 11.0 - 15.0 % [facility] PLATELETS 216 140 - 400 Thousand/ uL [facility] MPV 10.4 7.5 - 12.5 fL [facility] NEUTROPHIL ABSOLUTE 5,018 1,500 - 7,800 cells/uL [facility] LYMPHOCYTE ABSOLUTE 1,052 850 - 3,900 cells/uL [facility] MONOCYTE ABSOLUTE 482 200 - 950 cells/uL [facility] EOSINOPHIL ABSOLUTE 101 15 - 500 cells/uL [facility] BASOPHILS ABSOLUTE 47 0 - 200 cells/uL [facility] NEUTROPHIL 74.9 % [facility] LYMPHOCYTES 15.7 % [facility] MONOCYTE 7.2 % [facility] EOSINOPHILS 1.5 % [facility] BASOPHILS 0.7 % [facility] Comment: FASTING:YES FASTING: YES Test Performed at: [facility] [address] [place] [address] Abiodun Lemon Blood 01/19/2025 9:47 AM COMPOSITOR APPRENTICE 01/19/2025 9:47 AM COMPOSITOR APPRENTICE Chiqui Gill MD HEMATOLOGY ORDERABLES Final Resu lt [facility] [phone] [facility] [place] [address] [place] [address] * LDL CHOLESTEROL, DIRECT (01/19/2025 9:47 AM COMPOSITOR APPRENTICE) LDL CHOLESTEROL, DIRECT 10 <100 mg/dL [facility] Comment: Greatly elevated Triglycerides values (>1200 mg/dL) interfere with the dLDL assay. Desirable range <100 mg/dL for primary prevention; <70 mg/dL for patients with CHD or diabetic patients with > or = 2 CHD risk factors. FASTING:YES FASTING: YES Test Performed at: [facility] [address] [place] [address] [facility] Claudette Lemon MD Blood 01/19/2025 9:47 AM COMPOSITOR APPRENTICE 01/19/2025 9:47 AM COMPOSITOR APPRENTICE Chiqui Gill MD CHEMISTRY ORDERABLES Final Resul t Performing Organization Address City/State/ZIP [place] Phone Number [facility] [phone] [address] * (ABNORMAL) HEMOGLOBIN A1C (01/19/2025 9:47 AM COMPOSITOR APPRENTICE) HEMOGLOBIN A1C 8.3(H) <5.7 % of total Hgb [facility] Comment: For someone without known diabetes, a hemoglobin A1c value of 6.5% or greater indicates that they may have diabetes and this should be confirmed with a follow-up test. For someone with known diabetes, a value <7% indicates that their diabetes is well controlled and a value greater than or equal to 7% indicates suboptimal control. A1c targets should be individualized based on duration of diabetes, age, comorbid conditions, and other considerations. Currently, no consensus exists regarding use of hemoglobin A1c for diagnosis of diabetes for children. ESTIMATED AVERAGE GLUCOSE (MG/DL) 192 mg/dL [facility] ESTIMATED AVERAGE GLUCOSE (MMOL/L) 10.6 mmol/L [facility] Comment: FASTING:YES FASTING: YES Test Performed at: [facility] [address] [place] [address] Abiodun Lemon Blood 01/19/2025 9:47 AM COMPOSITOR APPRENTICE 01/19/2025 9:47 AM COMPOSITOR APPRENTICE us Chiqui Gill MD CHEMISTRY ORDERABLES Final Resul t [facility] [phone] [facility] [address] [place] [address] * (ABNORMAL) COMPREHENSIVE METABOLIC PANEL (01/19/2025 9:47 AM COMPOSITOR APPRENTICE) GLUCOSE 109(H) 65 - 99 mg/dL [facility] Comment: Fasting reference interval For someone without known diabetes, a glucose value between 100 and 125 mg/dL is consistent with prediabetes and should be confirmed with a follow-up test. BUN 16 7 - 25 mg/dL [facility] CREATININE 1.01(H) 0.60 - 1.00 mg/dL [facility] GFR 60 > OR = 60 mL/min/1. 73m2 [facility] BUN/CREAT RATIO 16 6 - 22 (calc) [facility] SODIUM 142 135 - 146 mmol/L [facility] POTASSIUM 4.3 3.5 - 5.3 mmol/L [facility] CHLORIDE 102 98 - 110 mmol/L [facility] CO2 34(H) 20 - 32 mmol/L [facility] CALCIUM 9.6 8.6 - 10.4 mg/dL [facility] TOTAL PROTEIN 7.1 6.1 - 8.1 g/dL [facility] ALBUMIN 4.3 3.6 - 5.1 g/dL [facility] GLOBULIN 2.8 1.9 - 3.7 g/dL (calc) [facility] ALBUMIN/GLOBULIN RATIO 1.5 1.0 - 2.5 (calc) [facility] BILIRUBIN TOTAL 0.3 0.2 - 1.2 mg/dL [facility] ALKALINE PHOSPHATASE 88 37 - 153 U/L [facility] AST 21 10 - 35 U/L [facility] ALT 25 6 - 29 U/L [facility] Comment: FASTING:YES FASTING: YES Test Performed at: [place] [address] [place] [phone] MarizaImmanuel Lemon Blood 01/19/2025 9:47 AM COMPOSITOR APPRENTICE 01/19/2025 9:47 AM COMPOSITOR APPRENTICE us Chiqui Gill MD CHEMISTRY ORDERABLES Final Resul t [facility] [phone] [place] [address] [place] [address] * URINALYSIS WITH REFLEX CULTURE (12/22/2024 11:32 AM COMPOSITOR APPRENTICE) Only the most recent of2 resultswithin the time period is included. COLOR UA YELLOW YELLOW [facility] CLARITY UA CLEAR CLEAR [facility] SPECIFIC GRAVITY UA 1.009 1.001 - 1.035 [facility] PH UA 7.0 5.0 - 8.0 [facility] GLUCOSE UA NEGATIVE NEGATIVE [facility] BILIRUBIN UA NEGATIVE NEGATIVE [facility] KETONES UA NEGATIVE NEGATIVE [facility] BLOOD UA NEGATIVE NEGATIVE [facility] PROTEIN UA NEGATIVE NEGATIVE [facility] NITRITE UA NEGATIVE NEGATIVE [facility] LEUKOCYTE ESTERASE UA NEGATIVE NEGATIVE [facility] WBC UA NONE SEEN < OR = 5 /HPF [facility] RBC UA NONE SEEN < OR = 2 /HPF [facility] EPITHELIAL CELLS, URINE 0-5 < OR = 5 /HPF [facility] BACTERIA UA NONE SEEN NONE SEEN /HPF [facility] HYALINE CAST NONE SEEN NONE SEEN /LPF [facility] URINE NOTE [facility] Comment: This urine was analyzed for the presence of WBC, RBC, bacteria, casts, and other formed elements. Only those elements seen were reported. URINE CULTURE [facility] Comment: NO CULTURE INDICATED FASTING:NO FASTING: NO Test Performed at: [place] [address] [place] [phone] Abiodun Ramos Vo Urine URINE SPECIMEN OBTAINED BY CLEAN CATCH PROCEDURE / Unknown 12/22/2024 11:32 AM COMPOSITOR APPRENTICE 12/22/2024 11:32 AM COMPOSITOR APPRENTICE us Chiqui Gill MD URINE ORDERABLES Final Result [facility] [phone] [place] [address] [place] [phone] * MAMMO 3D GUMARO SCREEN BILAT W OR WO CAD (12/11/2024 11:45 AM CDT) Anatomical Region Laterality Modality Breast Bilateral Mammography 12/11/2024 11:4 5 AM CDT Impressions 12/11/2024 12:18 PM CDT FINDINGS/IMPRESSION: No suspicious mass, suspicious microcalcifications, or architectural distortion in either breast is identified. The computer aided diagnosis detects no significant abnormality. OVERALL FINAL ASSESSMENT: BI-RADS CATEGORY 1: Negative. RECOMMENDATIONS: Routine screening mammogram in one year. DICTATION LOCATION: [facility] Narrative 12/11/2024 12:18 PM CDT BILATERAL FULL-FIELD DIGITAL SCREENING MAMMOGRAM WITH 3D TOMOSYNTHESIS DATE: 12/11/2024 11:45 AM HISTORY: Routine screening. TECHNIQUE: Full-field digital craniocaudal and mediolateral oblique projections of both breasts were obtained. Low-dose full-field digital breast tomosynthesis examination was performed with 2D and 3D acquisitions. Examination is read in conjunction with Transpara. COMPARISON: BREAST COMPOSITION: The breasts are almost entirely fatty. us Chiqui Gill MD MAMMO ORDERABLES Final Result * XR DEXA BONE DENSITY AXIAL 1 OR MORE SITES (12/11/2024 11:24 AM CDT) Anatomical Region Laterality Modality Computed Radiogr aphy 12/11/2024 11:2 4 AM CDT Impressions 12/11/2024 12:11 PM CDT FINDINGS/IMPRESSION: Bone density measurements were made of the lumbar spine and hips. Lowest T score of -2.1, previously -2.2, consistent with osteopenia and moderate risk of fracture. FRAX: 10 year probability of major osteoporotic fracture is 10.6 %. 10 year probability of hip fracture is 2.0 %. Please refer to the full report available in [facility] under the PACS Images tab. If a faxed copy is needed, please call [phone]. DICTATION LOCATION: [facility] Narrative 12/11/2024 12:11 PM CDT SUMMARY DEXA REPORT DATE: 12/11/2024 11:24 AM INDICATION: Postmenopausal Procedure Note Linda Evans MD - 12/11/2024 SUMMARY DEXA REPORT DATE: 12/11/2024 11:24 AM INDICATION: Postmenopausal FINDINGS/IMPRESSION: Bone density measurements were made of the lumbar spine and hips. Lowest T score of -2.1, previously -2.2, consistent with osteopenia and moderate risk of fracture. FRAX: 10 year probability of major osteoporotic fracture is 10.6 %. 10 year probability of hip fracture is 2.0 %. Please refer to the full report available in [facility] under the PACS Images tab. If a faxed copy is needed, please call [phone]. DICTATION LOCATION: [facility] us Chiqui Gill MD DIAGNOSTIC IMAGING ORDERABLES Fi nal Result * (ABNORMAL) URINE CULTURE (12/02/2024 12:35 PM CDT) URINE CULTURE SEE NOTE(A) [facility] Comment: CULTURE, URINE, ROUTINE Micro Number: [id number] Test Status: Final Specimen Source: Urine Specimen Quality: Adequate Result: 50,000-99,000 CFU/mL of Escherichia coli 50,000-99,000 CFU/mL of Klebsiella aerogenes (Enterobacter) E.coli K. aerogenes INT VELMA INT VELMA AMOX/CLAVULANATE S 4 R 16 AMP/SULBACTAM S 4 * CEFAZOLIN NR 2 2 R >=32 CEFEPIME S <=0.12 S <=0.12 CEFTAZIDIME S <=0.5 S <=0.5 CEFTRIAXONE S <=0.25 S <=0.25 CIPROFLOXACIN S <=0.06 S <=0.06 GENTAMICIN S <=1 S <=1 IMIPENEM S <=0.25 * LEVOFLOXACIN S <=0.12 S <=0.12 MEROPENEM S <=0.25 S <=0.25 NITROFURANTOIN S <=16 I 64 PIP/TAZOBACTAM S <=4 S 8 TRIMETHOPRIM/SULFA S <=20 S <=20 S = Susceptible I = Intermediate R = Resistant NS = Not susceptible SDD = Susceptible Dose Dependent * = Not Tested NR = Not Reported NN = See Therapy Comments THERAPY COMMENTS Note 1: For infections other than uncomplicated UTI caused by E. coli, K. pneumoniae or P. mirabilis: Cefazolin is resistant if VELMA > or = 8 mcg/mL. (Distinguishing susceptible versus intermediate for isolates with VELMA < or = 4 mcg/mL requires additional testing.) Note 2: For uncomplicated UTI caused by E. coli, K. pneumoniae or P. mirabilis: Cefazolin is susceptible if VELMA <32 mcg/mL and predicts susceptible to the oral agents cefaclor, cefdinir, cefpodoxime, cefprozil, cefuroxime, cephalexin and loracarbef. FASTING:NO FASTING: NO Test Performed at: [facility] [address] [place] [address] [facility] 12/02/2024 12:3 5 PM CDT 12/02/2024 12:35 PM CDT Chiqui Gill MD MICROBIOLOGY - GENERAL ORDERABLE S Final Result [facility] [phone] [facility] [address] [place] [address] * HM DIABETES EYE EXAM (09/26/2024 9:53 AM CDT) Siena Aaron OD HEALTH MAINTENANCE Final Result [facility] CLIA# [id number] [facility] [address] [place] [address] * COLONOSCOPY REPORT (05/05/2024 10:57 AM CDT) Narrative Procedure Note Joseline Cortez MD - 05/05/2024 10:57 AM CDT [facility] Endoscopy Patient Name: Sarah Newby Procedure Date: 05/05/2024 Date of : 1955 Attending MD: Joseline Cortez MD, Procedure: Colonoscopy Indications: High risk colon cancer surveillance: Personal history of adenomatous colonic polyps Providers: Joseline Cortez MD Referring MD: Chiqui Gill MD Medicines: Monitored Anesthesia Care Complications: No immediate complications. Procedure: Informed consent was obtained for the procedure, including moderate sedation after risks were discussed. Based on the pre-procedure assessment, including review of the patient's medical history, medications, allergies, and review of systems, the patient was deemed to be an appropriate candidate for sedation. A timeout was performed. Continuous ECG monitoring, pulse oximetry, blood pressure monitoring, and direct observation were performed. The Colonoscope was introduced through the anus and advanced to the cecum, identified by appendiceal orifice and ileocecal valve. The colonoscopy was performed without difficulty. The patient tolerated the procedure well. The quality of the bowel preparation was excellent. The ileocecal valve, appendiceal orifice, and rectum were photographed. Findings: The perianal and digital rectal examinations were normal. Five sessile polyps were found in the ascending colon. The polyps were 1 to 3 mm in size. These were biopsied with a cold jumbo forceps for histology. A 6 mm polyp was found in the transverse colon. The polyp was sessile. The polyp was removed with a cold snare. Resection and retrieval were complete. A 3 mm polyp was found in the descending colon. The polyp was sessile. This was biopsied with a cold jumbo forceps for histology. The retroflexed view of the distal rectum and anal verge was normal and showed no anal or rectal abnormalities. Impression: - Five 1 to 3 mm polyps in the ascending colon. Biopsied. - One 6 mm polyp in the transverse colon, removed with a cold snare. Resected and retrieved. - One 3 mm polyp in the descending colon. Biopsied. - The distal rectum and anal verge are normal on retroflexion view. Recommendation: - Await pathology results. - Repeat colonoscopy in 3 years for surveillance if biopsies show tubular adenoma. - Return to primary care physician as previously scheduled. Procedure Code(s): --- Professional --- 13909, Colonoscopy, flexible; with removal of tumor(s), polyp(s), or other lesion(s) by snare technique 52539, 59, Colonoscopy, flexible; with biopsy, single or multiple CPT copyright 2020 [employer]. All rights reserved. The codes documented in this report are preliminary and upon betting clerk review may be revised to meet current compliance requirements. Joseline Cortez MD 05/05/2024 10:57:13 AM This report has been signed electronically. Number of Addenda: [id number] [place] [address] Joseline Cortez MD GI PROCEDURE O RDERABLES Final Result from Last 3 Months or Most Recently Relevant to Health Maintenance Insurance [facility] RX MEDIMPACT Member Subscriber Plan / Payer (Ef fective 2017-Present) Name:Sarah Newby Relation to Subscriber:Self Name:Sarah Newby Payer ID:Not on file Group ID:[id number] Type:RX Medicare Part D Address: [address] [facility] [facility] Advance Directives For more information, please contact: [phone] * Full Code (Latest Code Status on File) Date Activated Date Inactivated Comments 12/07/2020 11:12 AM 03/15/2021 11:55 AM * Full Code Date Activated Date Inactivated Comments 12/01/2020 10:11 PM 12/05/2020 6:40 PM * Full Code Date Activated Date Inactivated Comments 08/25/2020 1:43 AM 08/27/2020 2:21 PM * Full Code Date Activated Date Inactivated Comments 05/14/2019 3:25 PM 11/06/2019 8:27 PM * Full Code Date Activated Date Inactivated Comments 12/14/2017 6:35 AM 12/26/2017 4:56 PM Care Teams Investigator Welfare Relationship Specialty [place] [id number] [address] PCP - General Internal Medicine 12/13/17
--- NOTE | 2025-01-30 09:51 | ED.GENADULT ---
HPI - General Adult General Chief complaint: Extremity Injury, Upper Stated complaint: left hand pain after hitting it on car today Time Seen by Provider: 01/30/25 09:23 History of Present Illness HPI narrative: Sarah Newby is a 69-year-old female who presents today after hitting her hand on metal piece on her car about 546 this morning. She denies any other injury after this but she comes in now with continued pain and swelling. SHe is on plavix Related Data Home Medications ?Medication ?Instructions ?Recorded ?Confirmed ?Last Taken ?Type albuterol sulfate 90 mcg/actuation inhalation 10/16/20 Unknown History aerosol inhaler alprazolam 1 mg tablet 10/16/20 Unknown History aspirin 81 mg tablet,delayed 10/16/20 Unknown History release (Alona Low Dose Aspirin) budesonide-formoterol HFA 80 inhalation 10/16/20 Unknown History mcg-4.5 mcg/actuation aerosol inhaler (Symbicort) buspirone 10 mg tablet mg 10/16/20 Unknown History calcium carbonate (Calcium 600) mg 10/16/20 Unknown History cholecalciferol (vitamin D3) 50 10/16/20 Unknown History mcg (2,000 unit) tablet (Vitamin D3) clopidogrel 75 mg tablet 10/16/20 Unknown History doxycycline hyclate 100 mg capsule 10/16/20 Unknown History duloxetine 30 mg capsule,delayed mg PO 10/16/20 Unknown History release fluoxetine 40 mg capsule mg 10/16/20 Unknown History furosemide 20 mg tablet 10/16/20 Unknown History glyburide 2.5 mg tablet mg 10/16/20 Unknown History insulin glargine 100 unit/mL (3 subcut 10/16/20 Unknown History mL) subcutaneous pen (Lantus Solostar U-100 Insulin) levothyroxine 75 mcg tablet 10/16/20 Unknown History linaclotide 290 mcg capsule mcg 10/16/20 Unknown History (Linzess) lisinopril 40 mg tablet 10/16/20 Unknown History multivitamin tablet 10/16/20 Unknown History potassium chloride 10 mEq meq PO 10/16/20 Unknown History tablet,extended release(part/cryst) (Klor-Con M) simvastatin 40 mg tablet mg 10/16/20 Unknown History torsemide 10 mg tablet mg 10/16/20 Unknown History trazodone 150 mg tablet 10/16/20 Unknown History zafirlukast 20 mg tablet mg 10/16/20 Unknown History Allergies Allergy/AdvReac Type Severity Reaction Status Date / Time cephalexin (From Keflex) Allergy Unknown Verified 01/30/25 09:29 adhesive tape AdvReac Rash Verified 01/30/25 09:29 Review of Systems Review of Systems: All systems reviewed & are unremarkable except as noted in HPI and below PMFSH Past Medical History Medical History Hypothyroidism High cholesterol Diabetes Exam Narrative: GENERAL: Well-appearing, well-nourished, and in no acute distress. HEAD: Normocephalic, atraumatic. EYES: PERRLA and EOMI. ENT: Nares clear, no rhinorrhea or epistaxis. Mucous membranes moist. Oropharynx without tonsillar hypertrophy exudate or other lesions. NECK: Supple. No adenopathy or masses. No carotid bruits or JVD CHEST: No respiratory distress. HEART: Regular rate and rhythm. Normal peripheral pulses. EXTREMITIES: Normal range of motion. + swelling and ecchymosis to the MCP of the left fourth phalanx , normal cap refill pulses intact SKIN: Warm, dry, no rash. NEURO: No focal deficits. Alert and oriented x3. PSYCH: Normal mood and affect. Course Vital Signs Vital signs: Vital Signs Temperature 36.6 C 01/30/25 09:11 Pulse Rate 79 01/30/25 09:11 Respiratory Rate 18 01/30/25 09:11 Blood Pressure 142/55 H 01/30/25 09:11 Pulse Oximetry 96 01/30/25 09:11 Oxygen Delivery Room Air 01/30/25 09:11 Temperature 36.6 C 01/30/25 09:11 Pulse Rate 79 01/30/25 09:11 Respiratory Rate 18 01/30/25 09:11 Blood Pressure 142/55 H 01/30/25 09:11 Pulse Oximetry 96 01/30/25 09:11 Oxygen Delivery Room Air 01/30/25 09:11 [facility] Narrative Medical decision making narrative: 69-year-old female who complains of having pain to her left 4th phalanx as her head in on her car earlier this morning Normal range of motion. + swelling and ecchymosis to the MCP of the left fourth phalanx , normal cap refill pulses intact Concern for contusion, hematoma, fracture, dislocation plan to check an XR offered pain control, she states that she is driving and will only take Tylenol, ICE pack applied as well. XR: No acute fracture or malalignment. Plan to d/c with kaylynn wrap/ LEBLANC therapy CLose PCP follow up Return preacutions provided Differential Diagnosis Differential Diagnosis: Acute fracture versus malalignment versus contusion Imaging Data My impression: Impressions Hand X-Ray 01/30/25 09:45 Impression: No acute fracture or malalignment. Radiologist's impression: ITS Impressions Hand X-Ray 01/30/25 09:45 Impression: No acute fracture or malalignment. Discharge Plan Discharge Clinical Impression: Contusion of hand Qualifiers: Encounter type: initial encounter Laterality: left Qualified Code(s): S60.222A - Contusion of left hand, initial encounter Patient Disposition: Home Condition: Stable Instructions: Antibiotic Form, P.R.I.C.E. Treatment (ED) Additional Instructions: Continue to wear the kaylynn wrap Elevate/ Ice 20 mins at a time 3-4 times a day for 4 days Continue Tylenol for pain please follow up with your PCP in 3-5 days to ensure this is improved IF you develop new or worsening symptoms return to the ER. Patient Language: Arabic Prescriptions: No Action multivitamin Tablet fluoxetine 40 mg capsule doxycycline hyclate 100 mg capsule alprazolam 1 mg tablet glyburide 2.5 mg tablet torsemide 10 mg tablet clopidogrel 75 mg tablet Alona Low Dose Aspirin 81 mg tablet,delayed release (DR/EC) simvastatin 40 mg tablet levothyroxine 75 mcg tablet Calcium 600 600 mg calcium (1,500 mg) tablet trazodone 150 mg tablet buspirone 10 mg tablet zafirlukast 20 mg tablet furosemide 20 mg tablet albuterol sulfate 90 mcg/actuation HFA aerosol inhaler INHALATION lisinopril 40 mg tablet Klor-Con M10 10 mEq tablet,ER particles/crystals PO duloxetine 30 mg capsule,delayed release(DR/EC) PO Symbicort 80-4.5 mcg/actuation HFA aerosol inhaler INHALATION Lantus Solostar U-100 Insulin 100 unit/mL (3 mL) insulin pen SUBCUT Vitamin D3 50 mcg (2,000 unit) tablet Linzess 290 mcg capsule Follow-up/Referrals: PHYSICIAN NOT ON STAFF,NONSTAFF [Primary Care Provider] Stand Alone Forms: Work/School Release IP Time of Disposition: 09:57
[2025-01-30] MEDS: ACETAMINOPHEN 500 MG TABLET 1000 MG PO (09:59)
--- OUTSIDE RECORDS SUMMARY | 2025-01-30 10:23 | XMS_ITS | Encounter Summary ---
Author Organization [facility] Address [address] [place] [address] Care Team Providers Care Floor Winder Name Role Phone Chiqui Gill MD Primary Care Provider [phone] Encounter Details Date Type Department Care Team [...] PM CDT Legal Sex Female 5:25 AM ROUTEMAN Gender Identity Female 10/29/2024 6:24 PM CDT Sexual Orientation Not on file documented as of this encounter Plan of Treatment Upcoming Encounters Date Type Department Care Team (Late st Contact Info) Description 02/18/2025 10:00 AM ROUTEMAN Procedure visit [facility] Urology [facility] [address] [facility] [address] [place] [address] [place] [address] [facility] [address] [place] [address] 02/18/2025 10:00 AM ROUTEMAN Procedure visit [facility] Urology [facility] [address] [facility] [address] [place] [address] 04/09/2025 2:00 PM ROUTEMAN Office Visit [facility] Heart and Vascular - [address] [facility] 300 [address] [facility] [address] [place] [address] Nica Coronel, DANIEL [address] [facility] 300 [place] [phone] 04/16/2025 11:00 AM ROUTEMAN Appointment [facility] Services [facility] [address] [place] [address] Saray Luu MD [address] [place] [address] 280 [place] [address] 04/23/2025 11:40 AM CDT Office Visit [facility] Pulmonology - [address] [place] [address] [place] Luu [place] [id number] [place] [address] [address] [place] [phone] 06/04/2025 11:20 AM CDT Office Visit [facility] Primary Care - [address] [place] [phone] Chiqui Gill MD [address] [place] [address] 07/13/2025 11:00 AM CDT Office Visit [address] [place] [address] Chiqui Gill MD [address] [place] [address] documented as of this encounter Procedures [...] CARE TESTING Final Result Performing Organization Address [facility] Phone Number INTERFACE SYSTEM Refer to clinic/hospital department * POC GLUCOSE (06/23/2005 8:51 AM CDT) GLUCOSE POC 106 65 - 109 mg/dL INTERFACE SYSTEM 06/23/2005 8:51 AM CDT Result Bell Rhoades MD POINT OF CARE TESTING Final Result Performing Organization Address [facility] Phone Number INTERFACE SYSTEM Refer to clinic/hospital department * HEMOGLOBIN AND HEMATOCRIT (06/09/2005 9:47 AM CDT) HEMOGLOBIN 14.1 11.8 - 14.8 g/dL INTERFACE SYSTEM HEMATOCRIT 42.0 35.5 - 44.0 % INTERFACE SYSTEM 06/09/2005 9:47 AM CDT Result Bell Rhoades MD HEMATOLOGY ORDERABLES Final Result Performing Organization Address [facility] Phone Number INTERFACE SYSTEM Refer to clinic/hospital department documented in this encounter Visit Diagnoses Diagnosis Other enthesopathy of ankle and tarsus- Primary documented in this encounter Additional Health Concerns Infection Onset Date Last Indicated Resolved Time R/O COVID-19 01/07/2020 01/07/2020 01/10/2020 1:31 AM ROUTEMAN R/O COVID-19 10/01/2020 10/01/2020 10/02/2020 1:37 AM CDT R/O COVID-19 03/08/2021 03/08/2021 03/09/2021 1:20 AM ROUTEMAN COVID-19 03/08/2021 03/08/2021 04/07/2021 2:19 AM ROUTEMAN R/O COVID-19 03/14/2022 03/14/2022 03/14/2022 9:28 PM ROUTEMAN documented as of this encounter Care Teams Floor Winder Relationship Specialty [place] [address] [address] PCP - General Internal Medicine 12/13/17 documented as of this encounter
--- OUTSIDE RECORDS SUMMARY | 2025-01-30 10:23 | XMS_ITS | Encounter Summary ---
Author Organization [facility] Address [address] [place] [address] Care Team Providers Care Foreign Car Mechanic Name Role Phone Chiqui Gill MD Primary Care Provider [phone] Encounter Details Date Type Department Care Team (Late st Contact Info) Description 08/05/2021 Lab Requisition [facility] Laboratory Services [facility] [address] [facility] [place] [address] Tiffani Alvarenga, ADJUNCT PSYCHOLOGY FACULTY MEMBER [address] [facility] [address] [place] [address] Unspecified bacterial pneumonia Social History [...] PM CDT Legal Sex Female 5:25 AM CITY PLANNER Gender Identity Female 10/29/2024 6:24 PM CDT [...] st Contact Info) Description 02/18/2025 10:00 AM CITY PLANNER Procedure visit [facility] Urology [address] [place] [address] [place]y Gibbs [place] [id number] [place] [address] 260 [place] [address] 02/18/2025 10:00 AM CITY PLANNER Procedure visit [facility] Urology [address] [place] [address] 04/09/2025 2:00 PM CITY PLANNER Office Visit [facility] Heart and Vascular - [address] [facility] [address] [address] [facility] [address] [place] [address] Nica Coronel, DANIEL [address] [facility] [address] [place] [address] 04/16/2025 11:00 AM CITY PLANNER Appointment [facility] Imaging Services [address] [address] Saray Luu MD [address] [place] [address] 280 [place] [address] 04/23/2025 11:40 AM CDT Office Visit [facility] Pulmonology - [facility] [id number] [place] [address] 280 [place] [address] Saray Luu MD [address] [place] [address] 280 [place] [address] 06/04/2025 11:20 AM CDT Office Visit [address] [address] Chiqui Gill MD [address] [place] [address] 07/13/2025 11:00 AM CDT Office Visit [address] [address] Chiqui Gill MD [address] [place] [address] documented as of this encounter Procedures [...] 38(H) <=30 mm/Hr 08/05/2021 4:03 PM CDT [facility] Blood Venipuncture / Unknown 08/05/2021 10:48 AM CDT 08/05/2021 3:27 PM CDT us Tiffani Alvarenga ADJUNCT PSYCHOLOGY FACULTY MEMBER HEMATOLOGY ORDERABLES F inal Result [facility] SERVICES [facility] CLIA# [id number] [address] [place] [address] * (ABNORMAL) COMPREHENSIVE METABOLIC PANEL (08/05/2021 10:48 AM CDT) Pathologist [facility] SODIUM 141 136 - 145 mmol/L 08/05/2021 4:32 PM CDT [facility] POTASSIUM 4.1 3.5 - 5.0 mmol/L 08/05/2021 4:32 PM T [facility] Comment: Testing was performed on Serum. Specimen of choice is Pyatt Heparinized Plasma. Serum Potassium Reference Range: 0 years - 150 years 3.5 - 5.1 mmol/L CHLORIDE 100 98 - 107 mmol/L 08/05/2021 4:32 PM T [facility] CO2 32(H) 22 - 29 mmol/L 08/05/2021 4:32 PM T [facility] CALCIUM 9.3 8.6 - 10.2 mg/dL 08/05/2021 4:32 PM T [facility] BUN 21 8 - 23 mg/dL 08/05/2021 4:[address] [facility] CREATININE 1.17(H) 0.51 - 0.95 mg/dL 08/05/2021 4:32 PM T [facility] GLUCOSE 66(L) 74 - 99 mg/dL 08/05/2021 4:32 PM T [facility] TOTAL PROTEIN 6.8 6.7 - 8.6 g/dL 08/05/2021 4:32 PM T [facility] Comment: Testing was performed on Serum. Specimen of choice is Pyatt Heparinized Plasma. Serum TP Ref. Range: 3 [...] 3.5 - 5.2 g/dL 08/05/2021 4:32 PM [facility] BILIRUBIN TOTAL <0.2(L) 0.2 - 1.1 mg/dL 08/05/2021 4:32 PM T [facility] ALKALINE PHOSPHATASE 81 35 - 104 U/L 08/05/2021 4:32 PM [facility] AST 22 <33 U/L 08/05/2021 4:32 PM [facility] ALT 26 <34 U/L 08/05/2021 4:32 PM [facility] GFR 51(L) >=60 mL/min/1.7 3 sq meter 08/05/2021 4:32 PM [facility] Comment:eGFR calculated with 2020 CKD-EPI equation. Vegetarian diet, extremely high or low muscle mass, and may affect results. Cystatin C with Glomerular Filtration Rate is a suitable alternative for these patients. ANION GAP 9 8 - 16 mmol/L 08/05/2021 4:32 PM [facility] Blood Venipuncture / Unknown 08/05/2021 10:48 AM CDT 08/05/2021 3:27 PM CDT [facility] - 08/05/2021 4:32 PM CDT Samples containing indocyanine green cause interferences on Total and/or Direct Bilirubin and must not be measured. us Tiffani Alvarenga ADJUNCT PSYCHOLOGY FACULTY MEMBER CHEMISTRY ORDERABLES Fi nal Result [facility] CLIA# [id number] [address] [facility] [address] [place] [place] [address] * (ABNORMAL) C-REACTIVE PROTEIN (08/05/2021 10:48 AM CDT) CRP 7.5(H) <5.0 mg/L 08/05/2021 4:32 PM CDT [facility] Blood Venipuncture / Unknown 08/05/2021 10:48 AM CDT 08/05/2021 3:27 PM CDT Tiffani Alvarenga ADJUNCT PSYCHOLOGY FACULTY MEMBER CHEMISTRY ORDERABLES Fi nal Result [facility] CLIA# [id number] [address] [place] [address] * IGG (08/05/2021 10:48 AM CDT) IGG 1,109 621 - 1,631 mg/dL 08/05/2021 4:28 PM CDT [facility] Blood Venipuncture / Unknown 08/05/2021 10:48 AM CDT 08/05/2021 3:27 PM CDT Tiffani Alvarenga ADJUNCT PSYCHOLOGY FACULTY MEMBER CHEMISTRY ORDERABLES Fi nal Result Performing Organization Address [facility]/ZIP Co de Phone Number [facility] [employer] [facility] CLIA# [id number] [address] [place] [address] * (ABNORMAL) IGA (08/05/2021 10:48 AM CDT) IGA 80(L) 86 - 517 mg/dL 08/05/2021 4:28 PM CDT [facility] [employer] [facility] Blood Venipuncture / Unknown 08/05/2021 10:48 AM CDT 08/05/2021 3:27 PM CDT Tiffani Alvarenga ADJUNCT PSYCHOLOGY FACULTY MEMBER CHEMISTRY ORDERABLES Fi nal Result [facility] [employer] [id number] [address] [place] [address] * (ABNORMAL) IGM (08/05/2021 10:48 AM CDT) IGM 22(L) 37 - 286 mg/dL 08/05/2021 4:44 PM CDT [facility] Blood Venipuncture / Unknown 08/05/2021 10:48 AM CDT 08/05/2021 3:27 PM CDT Tiffani Alvarenga ADJUNCT PSYCHOLOGY FACULTY MEMBER CHEMISTRY ORDERABLES Fi nal Result [facility] [employer] [facility] CLIA# [id number] [address] [place] [address] documented in this encounter Visit Diagnoses Diagnosis Unspecified bacterial pneumonia documented in this encounter Additional Health Concerns Infection Onset Date Last Indicated Resolved Time R/O COVID-19 03/14/2022 03/14/2022 03/14/2022 9:28 PM CITY PLANNER documented as of this encounter Care Teams Foreign Car Mechanic Relationship Specialty Start Date End Date Chiqui Gill [place] [address] [place] [phone] PCP - General Internal Medicine 12/13/17 documented as of this encounter
--- OUTSIDE RECORDS SUMMARY | 2025-01-30 10:23 | XMS_ITS | Encounter Summary ---
Author Organization [facility] Address [address] [place] [address] Care Team Providers Care Road Machine Runner Name Role Phone Chiqui Gill MD Primary Care Provider [phone] Encounter Details Date Type Department Care Team (Late st Contact Info) Description 12/13/2000 Outpatient Historical [facility] [place] [address] [facility] [address] [address] William Mccrary MD NO ADDRESS ON FILE Social History Tobacco Use Types Packs/Day Years Used Date Smoking Tobacco: Never Assessed Comments Unknown Sex and Gender Information Value Date Recorded Sex Assigned at Female 10/29/2024 6:24 PM CDT Legal Sex Female 5:25 AM OFFICE ANALYST Gender Identity Female 10/29/2024 6:24 PM CDT Sexual Orientation Not on file documented as of this encounter Plan of Treatment Upcoming Encounters Date Type Department Care Team (Late st Contact Info) Description 02/18/2025 10:00 AM OFFICE ANALYST Procedure visit [facility] Urology [facility] [address] [address] [place] [address] [place] [address] [facility] [address] [place] [address] 02/18/2025 10:00 AM OFFICE ANALYST Procedure visit [facility] Urology [facility] [address] [address] [place] [address] 04/09/2025 2:00 PM OFFICE ANALYST Office Visit [facility] Heart and Vascular - [address] [facility] [address] [address] [place] [phone] Nica Coronel, TUMBLER MACHINE OPERATOR HELPER [address] [facility] [address] [place] [address] 04/16/2025 11:00 AM OFFICE ANALYST Appointment [facility] Services [place] [phone] Saray Luu MD [address] [place] [address] 04/23/2025 11:40 AM CDT Office Visit [facility] Pulmonology - [address] [address] Saray Luu MD [address] [place] [address] 06/04/2025 11:20 AM CDT Office Visit [address] [address] Chiqui Gill MD [address] [place] [address] 07/13/2025 11:00 AM CDT Office Visit [address] [address] Chiqui Gill MD [address] [place] [address] documented as of this encounter Visit Diagnoses Not on filedocumented in this encounter Additional Health Concerns Infection Onset Date Last Indicated Resolved Time R/O COVID-19 01/07/2020 01/07/2020 01/10/2020 1:31 AM OFFICE ANALYST R/O COVID-19 10/01/2020 10/01/2020 10/02/2020 1:37 AM CDT R/O COVID-19 03/08/2021 03/08/2021 03/09/2021 1:20 AM OFFICE ANALYST COVID-19 03/08/2021 03/08/2021 04/07/2021 2:19 AM OFFICE ANALYST R/O COVID-19 03/14/2022 03/14/2022 03/14/2022 9:28 PM OFFICE ANALYST documented as of this encounter Care Teams Road Machine Runner Relationship Specialty [place] [address] [address] PCP - General Internal Medicine 12/13/17 documented as of this encounter
--- OUTSIDE RECORDS SUMMARY | 2025-01-30 10:23 | XMS_ITS | Encounter Summary ---
Author Organization [facility] Address [address] [place] [address] Care Team Providers Care Plaster Maker Name Role Phone Chiqui Gill MD Primary Care Provider [phone] Encounter Details Date Type Department Care Team (Late Contact Info) Description 12/23/2024 Results Follow-Up [facility] Primary Care - [facility] [address] [facility] 200 [place] [address] [place] [address] [facility] [address] 200 [place] [address] URINALYSIS WITH REFLEX CULTURE Social [...] PM CDT Legal Sex Female 5:25 AM GEOGRAPHY TEACHER Gender Identity Female 10/29/2024 6:24 PM CDT Sexual Orientation Not on file documented as of this encounter Plan of Treatment Upcoming Encounters Date Type Department Care Team (Late Contact Info) Description 02/18/2025 10:00 AM GEOGRAPHY TEACHER Procedure visit [facility] Urology [facility] [address] [place] [address] 260 [place] [address] [place] [address] [facility] 260 [place] [address] 02/18/2025 10:00 AM GEOGRAPHY TEACHER Procedure visit [facility] Urology [address] 260 [place] [address] 04/09/2025 2:00 PM GEOGRAPHY TEACHER Office Visit [facility] Heart and Vascular - [address] [facility] 300 [address] [facility] 300 [place] [address] [place] [address] [facility] 300 [place] [address] 04/16/2025 11:00 AM GEOGRAPHY TEACHER Appointment [facility] Services [address] [address] Saray Luu MD [address] [place] [address] 280 [place] [address] 04/23/2025 11:40 AM CDT Office Visit [facility] Pulmonology - [address] [place] [address] Saray Luu MD [address] [place] [address] 280 [place] [address] 06/04/2025 11:20 AM CDT Office Visit [facility] Primary Care - [address] 200 [place] [address] [place] [address] [place] [address] 07/13/2025 11:00 AM CDT Office Visit [facility] Primary Care - [facility] [address] [address] Chiqui Gill MD [address] [place] [address] documented as of this encounter Visit Diagnoses Not on filedocumented in this encounter Care Teams Plaster Maker Relationship Specialty Start Date End Date Chiqui Gill MD [address] [place] [address] PCP - General Internal Medicine 12/13/17 documented as of this encounter
--- OUTSIDE RECORDS SUMMARY | 2025-01-30 10:23 | XMS_ITS | Clinical Summary ---
Author Organization [facility] Address 1 [place] [address] Care Team Providers Care Rn Acute Dialysis Name Role Phone PcpRose Primary Care Provider [phone] Social History Tobacco Use Types Packs/Day Years Used Date Smoking Tobacco: Never Assessed Comments Unknown Sex and Gender Information Value Date Recorded Sex Assigned at Not on file Legal Sex Female 9:06 PM EST Gender Identity Not on file Sexual Orientation Not on file Plan of Treatment Not on file Medical Devices Not on file Care Teams Rn Acute Dialysis Relationship Specialty Start Date End Date Rose Beal PCP - General Family Medicine 03/10/20
--- OUTSIDE RECORDS SUMMARY | 2025-01-30 10:23 | XMS_ITS | Encounter Summary ---
Author Organization [facility] Address [address] [place] [address] Care Team Providers Care Computer Aided Design Designer Name Role Phone Chiqui Gill MD Primary Care Provider Encounter Details Date Type Department Care Team (Late st Contact Info) Description 06/09/[address] [facility] [address] [place] [address] Mikael Peterson MD [address] [facility] [address] [place] [address] Social History Tobacco Use Types Packs/Day Years Used Date Smoking Tobacco: Never Assessed Comments Unknown Sex and Gender Information Value Date Recorded Sex Assigned at Female 10/29/2024 6:24 PM CDT Legal Sex Female 5:25 AM STRAP MAKING MACHINE OPERATOR Gender Identity Female 10/29/2024 6:24 PM CDT Sexual Orientation Not on file documented as of this encounter Plan of Treatment Upcoming Encounters Date Type Department Care Team (Late st Contact Info) Description 02/18/2025 10:00 AM STRAP MAKING MACHINE OPERATOR Procedure visit [facility] Urology [facility] [address] [place] [address] [place] [address] [facility] 260 [place] [address] 02/18/2025 10:00 AM STRAP MAKING MACHINE OPERATOR Procedure visit [facility] Urology [facility] [address] [address] [place] [address] 04/09/2025 2:00 PM STRAP MAKING MACHINE OPERATOR Office Visit [facility] Heart and Vascular - [address] [facility] 300 [address] [facility] 300 [place] [address] [place] [address] [facility] 300 [place] [phone] 04/16/2025 11:00 AM STRAP MAKING MACHINE OPERATOR Appointment [facility] Services [address] [phone] Saray Luu MD [address] [place] [address] 280 [place] [address] 04/23/2025 11:40 AM CDT Office Visit [facility] Pulmonology - [address] [place] [address] [place] Lu[place] [address] [place] [address] 280 [place] [address] 06/04/2025 11:20 AM CDT Office Visit [address] [place] [address] Chiqui Gill MD [address] [place] [address] 07/13/2025 11:00 AM CDT Office Visit [address] 200 [place] [address] Chiqui Gill MD [address] [place] [address] documented as of this encounter Visit Diagnoses Not on filedocumented in this encounter Additional Health Concerns Infection Onset Date Last Indicated Resolved Time R/O COVID-19 01/07/2020 01/07/2020 01/10/2020 1:31 AM STRAP MAKING MACHINE OPERATOR R/O COVID-19 10/01/2020 10/01/2020 10/02/2020 1:37 AM CDT R/O COVID-19 03/08/2021 03/08/2021 03/09/2021 1:20 AM STRAP MAKING MACHINE OPERATOR COVID-19 03/08/2021 03/08/2021 04/07/2021 2:19 AM STRAP MAKING MACHINE OPERATOR R/O COVID-19 03/14/2022 03/14/2022 03/14/2022 9:28 PM STRAP MAKING MACHINE OPERATOR documented as of this encounter Care Teams Computer Aided Design Designer Relationship Specialty [place] [address] [address] PCP - General Internal Medicine 12/13/17 documented as of this encounter
--- OUTSIDE RECORDS SUMMARY | 2025-01-30 10:23 | XMS_ITS | Encounter Summary ---
Author Organization [facility] Address [address] [place] [address] Care Team Providers Care School Health Assistant Name Role Phone Chiqui Gill MD Primary Care Provider [phone] Encounter Details Date Type Department Care Team (Late st Contact Info) Description 10/18/2000 Outpatient Historical [facility] Medical [place] [address] [facility] [address] [address] Mikael Mccrary Social History Tobacco Use Types Packs/Day Years Used Date Smoking Tobacco: Never Assessed Comments Unknown Sex and Gender Information Value Date Recorded Sex Assigned at Female 10/29/2024 6:24 PM CDT Legal Sex Female 5:25 AM EVALUATION MANAGER Gender Identity Female 10/29/2024 6:24 PM CDT Sexual Orientation Not on file documented as of this encounter Plan of Treatment Upcoming Encounters Date Type Department Care Team (Late st Contact Info) Description 02/18/2025 10:00 AM EVALUATION MANAGER Procedure visit [facility]rology [facility] [address] [facility] 260 [place] [address] [place] [address] [facility] 260 [place] [address] 02/18/2025 10:00 AM EVALUATION MANAGER Procedure visit [facility] [address] [facility] 260 [place] [address] 04/09/2025 2:00 PM EVALUATION MANAGER Office Visit [facility] Heart and Vascular - [address] [facility] [address] [address] [facility] [address] [place] [address] Nica Coronel, DANIEL [address] [facility] 300 [place] [address] 04/16/2025 11:00 AM EVALUATION MANAGER Appointment [facility] Services [place] [phone] Saray Luu MD [address] [place] [address] 280 [place] [address] 04/23/2025 11:40 AM CDT Office Visit [facility] Pulmonology - [address] [address] Saray Luu MD [address] [place] [address] 06/04/2025 11:20 AM CDT Office Visit [facility] Care - [address] [address] Chiqui Gill MD [address] [place] [address] 07/13/2025 11:00 AM CDT Office Visit [address] [address] Chiqui Gill MD [address] [place] [address] documented as of this encounter Visit Diagnoses Not on filedocumented in this encounter Additional Health Concerns Infection Onset Date Last Indicated Resolved Time R/O COVID-19 01/07/2020 01/07/2020 01/10/2020 1:31 AM EVALUATION MANAGER R/O COVID-19 10/01/2020 10/01/2020 10/02/2020 1:37 AM CDT R/O COVID-19 03/08/2021 03/08/2021 03/09/2021 1:20 AM EVALUATION MANAGER COVID-19 03/08/2021 03/08/2021 04/07/2021 2:19 AM EVALUATION MANAGER R/O COVID-19 03/14/2022 03/14/2022 03/14/2022 9:28 PM EVALUATION MANAGER documented as of this encounter Care Teams School Health Assistant Relationship Specialty [place] [address] [phone] PCP - General Internal Medicine 12/13/17 documented as of this encounter
--- OUTSIDE RECORDS SUMMARY | 2025-01-30 10:23 | XMS_ITS | Encounter Summary ---
Author Organization [facility] Address [address] [place] [address] Care Team Providers Care Shear Assembler Name Role Phone Chiqui Gill MD Primary Care Provider [phone] Encounter Details Date Type Department Care Team (Late st Contact Info) Description 01/19/2025 Results Follow-Up [facility] Primary Care - [facility] [address] [facility] 200 [place] [address] [place] [address] [facility] ASHLEY 200 [place] [address] CBC WITH DIFFERENTIAL, MICROALBUMIN/CREATIN INE [...] PM CDT Legal Sex Female 5:25 AM LABORATORY CHIEF Gender Identity Female 10/29/2024 6:24 PM CDT Sexual Orientation Not on file documented as of this encounter Miscellaneous Notes * Result Encounter Note - Chiqui Gill MD - 01/20/2025 4:38 PM CST Your labs are all stable, no medication changes, continue plan as discussed. RATORY CHIEF * Result Encounter Note - Chiqui Gill MD - 01/19/2025 5:10 PM CST Your labs are all stable, no medication changes, continue plan as discussed. RATORY CHIEF documented in this encounter Plan of Treatment Upcoming Encounters Date Type Department Care Team (Late st Contact Info) Description 02/18/2025 10:00 AM LABORATORY CHIEF Procedure visit [facility] Urology [facility] [address] [facility] 260 [place] [address] [place] [address] [facility] 260 [place] [address] 02/18/2025 10:00 AM LABORATORY CHIEF Procedure visit [facility] Urology [facility] [address] [facility] 260 [place] [address] 04/09/2025 2:00 PM LABORATORY CHIEF Office Visit [facility] Heart and Vascular - [address] [facility] 300 [address] [facility] 300 [place] [address] [place] [address] [facility] 300 [place] [address] 04/16/2025 11:00 AM LABORATORY CHIEF Appointment [facility] Imaging Services [facility] [address] [place] [address] [place] [address] [facility] 280 [place] [address] 04/23/2025 11:40 AM CDT Office Visit [facility] Pulmonology - [address] [place] [address] Saray Luu MD [address] [place] [address] 280 [place] [address] 06/04/2025 11:20 AM CDT Office Visit [facility] Primary Care - [address] 200 [place] [address] Chiqui Gill MD [address] [place] [address] 07/13/2025 11:00 AM CDT Office Visit [address] 200 [place] [address] Chiqui Gill MD [address] [place] [address] documented as of this encounter Visit Diagnoses Not on filedocumented in this encounter Care Teams Shear Assembler Relationship Specialty Start Date End Date Chiqui Gill MD [address] [place] [address] PCP - General Internal Medicine 12/13/17 documented as of this encounter
--- OUTSIDE RECORDS SUMMARY | 2025-01-30 10:23 | XMS_ITS | Encounter Summary ---
Author Organization [facility] Address [address] [place] [address] Care Team Providers Care Jack Spinner Name Role Phone Chiqui Gill MD Primary Care Provider [phone] Encounter Details Date Type Department Care Team (Late st Contact Info) Description 05/10/2000 Outpatient Historical [facility]'s Health Medical [place] [address] [facility] [address] [address] Mikael Mccrary Social History Tobacco Use Types Packs/Day Years Used Date Smoking Tobacco: Never Assessed Comments Unknown Sex and Gender Information Value Date Recorded Sex Assigned at Female 10/29/2024 6:24 PM CDT Legal Sex Female 5:25 AM GENETIC ENGINEER Gender Identity Female 10/29/2024 6:24 PM CDT Sexual Orientation Not on file documented as of this encounter Plan of Treatment Upcoming Encounters Date Type Department Care Team (Late st Contact Info) Description 02/18/2025 10:00 AM GENETIC ENGINEER Procedure visit [facility] Urology [facility] [address] [facility] 260 [place] [address] [place] [address] [facility] 260 [place] [address] 02/18/2025 10:00 AM GENETIC ENGINEER Procedure visit [facility] Urology [facility] [address] [facility] 260 [place] [address] 04/09/2025 2:00 PM GENETIC ENGINEER Office Visit [facility] Heart and Vascular - [address] [facility] [address] [address] [facility] A[address]LEY 300 [place] [address] Nica Coronel, DANIEL [address] [facility] 300 [place] [address] 04/16/2025 11:00 AM GENETIC ENGINEER Appointment [facility] Services [place] [phone] Saray Luu MD [address] [place] [address] 280 [place] [address] 04/23/2025 11:40 AM CDT Office Visit [facility] Pulmonology - [address] [address] Saray Luu MD [address] [place] [address] 06/04/2025 11:20 AM CDT Office Visit [facility] Care - [address] [address] Chiqui Gill MD [address] [place] [address] 07/13/2025 11:00 AM CDT Office Visit [address] [address] Chiqui Gill MD [address] [place] [address] documented as of this encounter Visit Diagnoses Not on filedocumented in this encounter Additional Health Concerns Infection Onset Date Last Indicated Resolved Time R/O COVID-19 01/07/2020 01/07/2020 01/10/2020 1:31 AM GENETIC ENGINEER R/O COVID-19 10/01/2020 10/01/2020 10/02/2020 1:37 AM CDT R/O COVID-19 03/08/2021 03/08/2021 03/09/2021 1:20 AM GENETIC ENGINEER COVID-19 03/08/2021 03/08/2021 04/07/2021 2:19 AM GENETIC ENGINEER R/O COVID-19 03/14/2022 03/14/2022 03/14/2022 9:28 PM GENETIC ENGINEER documented as of this encounter Care Teams Jack Spinner Relationship Specialty [place] [address] [phone] PCP - General Internal Medicine 12/13/17 documented as of this encounter
--- OUTSIDE RECORDS SUMMARY | 2025-01-30 10:23 | XMS_ITS | Encounter Summary ---
Author Organization [facility] Address [address] [place] [address] Care Team Providers Care Hearing Care Practitioner Name Role Phone Chiqui Gill MD Primary Care Provider [phone] Encounter Details Date Type Department Care Team (Late st Contact Info) Description 09/24/2000 Outpatient Historical [facility]'s Health Medical [place] [address] [facility] [address] [address] Mikael Mccrary Social History Tobacco Use Types Packs/Day Years Used Date Smoking Tobacco: Never Assessed Comments Unknown Sex and Gender Information Value Date Recorded Sex Assigned at Female 10/29/2024 6:24 PM CDT Legal Sex Female 5:25 AM IRON CASTER Gender Identity Female 10/29/2024 6:24 PM CDT Sexual Orientation Not on file documented as of this encounter Plan of Treatment Upcoming Encounters Date Type Department Care Team (Late st Contact Info) Description 02/18/2025 10:00 AM IRON CASTER Procedure visit [facility] Urology [facility] [address] [facility] 260 [place] [address] [place] [address] [facility] 260 [place] [address] 02/18/2025 10:00 AM IRON CASTER Procedure visit [facility] Urology [facility] [address] [facility] 260 [place] [address] 04/09/2025 2:00 PM IRON CASTER Office Visit [facility] Heart and Vascular - [address] [facility] [address] [address] [facility] A[address] 300 [place] [address] Nica Coronel, DANIEL [address] [facility] 300 [place] [address] 04/16/2025 11:00 AM IRON CASTER Appointment [facility] Services [place] [phone] Saray Luu MD [address] [place] [address] 280 [place] [address] 04/23/2025 11:40 AM CDT Office Visit [facility] Pulmonology - [address] [address] Saray Luu MD [address] [place] [address] 06/04/2025 11:20 AM CDT Office Visit [facility] Care - [address] [address] Chiqui Gill MD [address] [place] [address] 07/13/2025 11:00 AM CDT Office Visit [address] [address] Chiqui Gill MD [address] [place] [address] documented as of this encounter Visit Diagnoses Not on filedocumented in this encounter Additional Health Concerns Infection Onset Date Last Indicated Resolved Time R/O COVID-19 01/07/2020 01/07/2020 01/10/2020 1:31 AM IRON CASTER R/O COVID-19 10/01/2020 10/01/2020 10/02/2020 1:37 AM CDT R/O COVID-19 03/08/2021 03/08/2021 03/09/2021 1:20 AM IRON CASTER COVID-19 03/08/2021 03/08/2021 04/07/2021 2:19 AM IRON CASTER R/O COVID-19 03/14/2022 03/14/2022 03/14/2022 9:28 PM IRON CASTER documented as of this encounter Care Teams Hearing Care Practitioner Relationship Specialty [place] [address] [phone] PCP - General Internal Medicine 12/13/17 documented as of this encounter
--- OUTSIDE RECORDS SUMMARY | 2025-01-30 10:23 | XMS_ITS | Encounter Summary ---
Author Organization [facility] Address [address] [place] [address] Care Team Providers Care Recruiting Administrator Name Role Phone Chiqui Gill MD Primary Care Provider [phone] Encounter Details Date Type Department Care Team (Late st Contact Info) Description 04/09/2000 Outpatient Historical [facility]'s Health Medical [place] [address] [facility] [address] [address] Mikael Mccrary Social History Tobacco Use Types Packs/Day Years Used Date Smoking Tobacco: Never Assessed Comments Unknown Sex and Gender Information Value Date Recorded Sex Assigned at Female 10/29/2024 6:24 PM CDT Legal Sex Female 5:25 AM EMPLOYEE HEALTH NURSE Gender Identity Female 10/29/2024 6:24 PM CDT Sexual Orientation Not on file documented as of this encounter Plan of Treatment Upcoming Encounters Date Type Department Care Team (Late st Contact Info) Description 02/18/2025 10:00 AM EMPLOYEE HEALTH NURSE Procedure visit [facility] Urology [facility] [address] [facility] 260 [place] [address] [place] [address] [facility] 260 [place] [address] 02/18/2025 10:00 AM EMPLOYEE HEALTH NURSE Procedure visit [facility] Urology [facility] [address] [facility] 260 [place] [address] 04/09/2025 2:00 PM EMPLOYEE HEALTH NURSE Office Visit [facility] Heart and Vascular - [address] [facility] [address] [address] [facility] [address] [place] [address] Nica Coronel, DANIEL [address] [facility] 300 [place] [address] 04/16/2025 11:00 AM EMPLOYEE HEALTH NURSE Appointment [facility] Services [place] [phone] Saray Luu MD [address] [place] [address] 280 [place] [address] 04/23/2025 11:40 AM CDT Office Visit [facility] Pulmonology - [address] [address] Saray Luu MD [address] [place] [address] 06/04/2025 11:20 AM CDT Office Visit [facility] Care - [address] [address] Chiqui Gill MD [address] [place] [address] 07/13/2025 11:00 AM CDT Office Visit [address] [address] Chiqui Gill MD [address] [place] [address] documented as of this encounter Visit Diagnoses Not on filedocumented in this encounter Additional Health Concerns Infection Onset Date Last Indicated Resolved Time R/O COVID-19 01/07/2020 01/07/2020 01/10/2020 1:31 AM EMPLOYEE HEALTH NURSE R/O COVID-19 10/01/2020 10/01/2020 10/02/2020 1:37 AM CDT R/O COVID-19 03/08/2021 03/08/2021 03/09/2021 1:20 AM EMPLOYEE HEALTH NURSE COVID-19 03/08/2021 03/08/2021 04/07/2021 2:19 AM EMPLOYEE HEALTH NURSE R/O COVID-19 03/14/2022 03/14/2022 03/14/2022 9:28 PM EMPLOYEE HEALTH NURSE documented as of this encounter Care Teams Recruiting Administrator Relationship Specialty [place] [address] [phone] PCP - General Internal Medicine 12/13/17 documented as of this encounter
--- OUTSIDE RECORDS SUMMARY | 2025-01-30 10:23 | XMS_ITS | Encounter Summary ---
Author Organization [facility] Address [address] [place] [address] Care Team Providers Care Network Desktop Support Specialist Name Role Phone Chiqui Gill MD Primary Care Provider [phone] Encounter Details Date Type Department Care Team (Late st Contact Info) Description 11/19/2000 Outpatient Historical [facility]'s Health Medical [place] [address] [facility] [address] [address] William Mccrary MD NO ADDRESS ON FILE Social History Tobacco Use Types Packs/Day Years Used Date Smoking Tobacco: Never Assessed Comments Unknown Sex and Gender Information Value Date Recorded Sex Assigned at Female 10/29/2024 6:24 PM CDT Legal Sex Female 5:25 AM FINANCIAL SERVICES INTERN Gender Identity Female 10/29/2024 6:24 PM CDT Sexual Orientation Not on file documented as of this encounter Plan of Treatment Upcoming Encounters Date Type Department Care Team (Late st Contact Info) Description 02/18/2025 10:00 AM FINANCIAL SERVICES INTERN Procedure visit [facility] Urology [facility] [address] [place] [address] [place] [address] [facility] [address] [place] [address] 02/18/2025 10:00 AM FINANCIAL SERVICES INTERN Procedure [facility] [address] [place] [address] 04/09/2025 2:00 PM FINANCIAL SERVICES INTERN Office Visit [facility] Heart and Vascular - [address] [facility] [address] [address] [place] [phone] Nica Coronel, FORM DESIGNER [address] [facility] 300 [place] [address] 04/16/2025 11:00 AM FINANCIAL SERVICES INTERN Appointment [facility] Services [place] [phone] Saray Luu MD [address] [place] [address] 04/23/2025 11:40 AM CDT Office Visit [facility] Pulmonology - [address] [address] Saray Luu MD [address] [place] [address] 06/04/2025 11:20 AM CDT Office Visit [address] [address] Chiqui Gill MD [address] [place] [address] 07/13/2025 11:00 AM CDT Office Visit [address] [address] Chiqui Gill MD [address] [place] [address] documented as of this encounter Visit Diagnoses Not on filedocumented in this encounter Additional Health Concerns Infection Onset Date Last Indicated Resolved Time R/O COVID-19 01/07/2020 01/07/2020 01/10/2020 1:31 AM FINANCIAL SERVICES INTERN R/O COVID-19 10/01/2020 10/01/2020 10/02/2020 1:37 AM CDT R/O COVID-19 03/08/2021 03/08/2021 03/09/2021 1:20 AM FINANCIAL SERVICES INTERN COVID-19 03/08/2021 03/08/2021 04/07/2021 2:19 AM FINANCIAL SERVICES INTERN R/O COVID-19 03/14/2022 03/14/2022 03/14/2022 9:28 PM FINANCIAL SERVICES INTERN documented as of this encounter Care Teams Network Desktop Support Specialist Relationship Specialty [place] [address] [address] PCP - General Internal Medicine 12/13/17 documented as of this encounter
--- OUTSIDE RECORDS SUMMARY | 2025-01-30 10:23 | XMS_ITS | Encounter Summary ---
Author Organization [facility] Address [address] [place] [address] Care Team Providers Care Head Char Filter Tank Tender Name Role Phone Chiqui Gill MD Primary Care Provider [phone] Encounter Details Date Type Department Care Team (Late st Contact Info) Description 11/01/2000 Outpatient Historical [facility]'s Health Medical [place] [address] [facility] [address] [address] Mikael Mccrary Social History Tobacco Use Types Packs/Day Years Used Date Smoking Tobacco: Never Assessed Comments Unknown Sex and Gender Information Value Date Recorded Sex Assigned at Female 10/29/2024 6:24 PM CDT Legal Sex Female 5:25 AM CONCRETE BUCKET LOADER Gender Identity Female 10/29/2024 6:24 PM CDT Sexual Orientation Not on file documented as of this encounter Plan of Treatment Upcoming Encounters Date Type Department Care Team (Late st Contact Info) Description 02/18/2025 10:00 AM CONCRETE BUCKET LOADER Procedure visit [facility] [address] [facility] 260 [place] [address] [place] [address] [facility] 260 [place] [address] 02/18/2025 10:00 AM CONCRETE BUCKET LOADER Procedure visit [facility] [address] [facility] 260 [place] [address] 04/09/2025 2:00 PM CONCRETE BUCKET LOADER Office Visit [facility] Heart and Vascular - [address] [facility] [address] [address] [facility] [address] [place] [address] Nica Coronel, DANIEL [address] [facility] 300 [place] [address] 04/16/2025 11:00 AM CONCRETE BUCKET LOADER Appointment [facility] Services [place] [phone] Saray Luu MD [address] [place] [address] 280 [place] [address] 04/23/2025 11:40 AM CDT Office Visit [facility] Pulmonology - [address] [address] Saray Luu MD [address] [place] [address] 06/04/2025 11:20 AM CDT Office Visit [facility] Care - [address] [address] Chiqui Gill MD [address] [place] [address] 07/13/2025 11:00 AM CDT Office Visit [address] [address] Chiqui Gill MD [address] [place] [address] documented as of this encounter Visit Diagnoses Not on filedocumented in this encounter Additional Health Concerns Infection Onset Date Last Indicated Resolved Time R/O COVID-19 01/07/2020 01/07/2020 01/10/2020 1:31 AM CONCRETE BUCKET LOADER R/O COVID-19 10/01/2020 10/01/2020 10/02/2020 1:37 AM CDT R/O COVID-19 03/08/2021 03/08/2021 03/09/2021 1:20 AM CONCRETE BUCKET LOADER COVID-19 03/08/2021 03/08/2021 04/07/2021 2:19 AM CONCRETE BUCKET LOADER R/O COVID-19 03/14/2022 03/14/2022 03/14/2022 9:28 PM CONCRETE BUCKET LOADER documented as of this encounter Care Teams Head Char Filter Tank Tender Relationship Specialty [place] [address] [phone] PCP - General Internal Medicine 12/13/17 documented as of this encounter
--- OUTSIDE RECORDS SUMMARY | 2025-01-30 10:23 | XMS_ITS | Encounter Summary ---
Author Organization [facility] Address [address] [place] [address] Care Team Providers Care Professor Of Biochemistry Name Role Phone Chiqui Gill MD Primary Care Provider [phone] Encounter Details Date Type Department Care Team (Late Contact Info) Description 04/04/2000 Outpatient Historical [facility] Family Medicine [facility] 10 [place] [address] Ke Michel, DO [address] [facility] [address] [place] [address] Social History Tobacco Use Types Packs/Day Years Used Date Smoking Tobacco: Never Assessed Comments Unknown Sex and Gender Information Value Date Recorded Sex Assigned at Female 10/29/2024 6:24 PM CDT Legal Sex Female 5:25 AM DIVISIONAL HUMAN RESOURCES DIRECTOR Gender Identity Female 10/29/2024 6:24 PM CDT Sexual Orientation Not on file documented as of this encounter Plan of Treatment Upcoming Encounters Date Type Department Care Team (Late st Contact Info) Description 02/18/2025 10:00 AM DIVISIONAL HUMAN RESOURCES DIRECTOR Procedure visit [facility] Urology [facility] [address] [place] [address] [place] [address] [facility] 260 [place] [address] 02/18/2025 10:00 AM DIVISIONAL HUMAN RESOURCES DIRECTOR Procedure visit [facility] Urology [facility] [address] [facility] 260 [place] [address] 04/09/2025 2:00 PM DIVISIONAL HUMAN RESOURCES DIRECTOR Office Visit [facility] Heart and Vascular - [address] [facility] 300 [address] [facility] 300 [place] [address] [place] [address] [facility] 300 [place] [phone] 04/16/2025 11:00 AM DIVISIONAL HUMAN RESOURCES DIRECTOR Appointment [facility] Services [address] [address] [place] [address] [facility] 280 [place] [address] 04/23/2025 11:40 AM CDT Office Visit [facility] Pulmonology - [address] 280 [place] [address] [place] Luu [place] [address] [place] [address] 06/04/2025 11:20 AM CDT Office Visit [facility] Care - [address] 200 [place] [address] Chiqui Gill MD [address] [place] [address] 07/13/2025 11:00 AM CDT Office Visit [facility] Care - [address] 200 [place] [address] Chiqui Gill MD [address] [place] [address] documented as of this encounter Visit Diagnoses Not on filedocumented in this encounter Additional Health Concerns Infection Onset Date Last Indicated Resolved Time R/O COVID-19 01/07/2020 01/07/2020 01/10/2020 1:31 AM DIVISIONAL HUMAN RESOURCES DIRECTOR R/O COVID-19 10/01/2020 10/01/2020 10/02/2020 1:37 AM CDT R/O COVID-19 03/08/2021 03/08/2021 03/09/2021 1:20 AM DIVISIONAL HUMAN RESOURCES DIRECTOR COVID-19 03/08/2021 03/08/2021 04/07/2021 2:19 AM DIVISIONAL HUMAN RESOURCES DIRECTOR R/O COVID-19 03/14/2022 03/14/2022 03/14/2022 9:28 PM DIVISIONAL HUMAN RESOURCES DIRECTOR documented as of this encounter Care Teams Professor Of Biochemistry Relationship Specialty [place] [address] [address] PCP - General Internal Medicine 12/13/17 documented as of this encounter
--- OUTSIDE RECORDS SUMMARY | 2025-01-30 10:23 | XMS_ITS | Encounter Summary ---
Author Organization [facility] Address [address] [place] [address] Care Team Providers Care Build Manager Name Role Phone Chiqui Gill MD Primary Care Provider [phone] Encounter Details Date Type Department Care Team (Late st Contact Info) Description 05/28/2000 Outpatient Historical [facility]'s Health Medical [place] [address] [facility] [address] [address] Mikael Mccrary Social History Tobacco Use Types Packs/Day Years Used Date Smoking Tobacco: Never Assessed Comments Unknown Sex and Gender Information Value Date Recorded Sex Assigned at Female 10/29/2024 6:24 PM CDT Legal Sex Female 5:25 AM BANK TELLER MACHINE MECHANIC Gender Identity Female 10/29/2024 6:24 PM CDT Sexual Orientation Not on file documented as of this encounter Plan of Treatment Upcoming Encounters Date Type Department Care Team (Late st Contact Info) Description 02/18/2025 10:00 AM BANK TELLER MACHINE MECHANIC Procedure visit [facility] Urology [facility] [address] [facility] 260 [place] [address] [place] [address] [facility] 260 [place] [address] 02/18/2025 10:00 AM BANK TELLER MACHINE MECHANIC Procedure visit [facility] Urology [facility] [address] [facility] 260 [place] [address] 04/09/2025 2:00 PM BANK TELLER MACHINE MECHANIC Office Visit [facility] Heart and Vascular - [address] [facility] [address] [address] [facility] [address] 300 [place] [address] Nica Coronel, DANIEL [address] [facility] 300 [place] [address] 04/16/2025 11:00 AM BANK TELLER MACHINE MECHANIC Appointment [facility] Services [place] [phone] Saray Luu MD [address] [place] [address] 280 [place] [address] 04/23/2025 11:40 AM CDT Office Visit [facility] Pulmonology - [address] [address] Saray Luu MD [address] [place] [address] 06/04/2025 11:20 AM CDT Office Visit [facility] Care - [address] [address] Chiqui Gill MD [address] [place] [address] 07/13/2025 11:00 AM CDT Office Visit [address] [address] Chiqui Gill MD [address] [place] [address] documented as of this encounter Visit Diagnoses Not on filedocumented in this encounter Additional Health Concerns Infection Onset Date Last Indicated Resolved Time R/O COVID-19 01/07/2020 01/07/2020 01/10/2020 1:31 AM BANK TELLER MACHINE MECHANIC R/O COVID-19 10/01/2020 10/01/2020 10/02/2020 1:37 AM CDT R/O COVID-19 03/08/2021 03/08/2021 03/09/2021 1:20 AM BANK TELLER MACHINE MECHANIC COVID-19 03/08/2021 03/08/2021 04/07/2021 2:19 AM BANK TELLER MACHINE MECHANIC R/O COVID-19 03/14/2022 03/14/2022 03/14/2022 9:28 PM BANK TELLER MACHINE MECHANIC documented as of this encounter Care Teams Build Manager Relationship Specialty [place] [address] [phone] PCP - General Internal Medicine 12/13/17 documented as of this encounter
--- OUTSIDE RECORDS SUMMARY | 2025-01-30 10:23 | XMS_ITS | Encounter Summary ---
Author Organization [facility] Address [address] [place] [address] Care Team Providers Care Digital Assistant Name Role Phone Chiqui Gill MD Primary Care Provider [phone] Encounter Details Date Type Department Care Team (Latest Contact Info) Description 12/09/2004 Outpatient Historical [facility] Brayan Rhoades MD NO ADDRESS ON FILE FX ASTRAGALUS-CLOSED (Primary Dx) Social History Tobacco Use Types Packs/Day Years Used Date Smoking Tobacco: Never Assessed Comments Unknown Sex and Gender Information Value Date Recorded Sex Assigned at Female 10/29/2024 6:24 PM CDT Legal Sex Female 5:25 AM EDITORIAL INTERN Gender Identity Female 10/29/2024 6:24 PM CDT Sexual Orientation Not on file documented as of this encounter Plan of Treatment Upcoming Encounters Date Type Department Care Team (Late st Contact Info) Description 02/18/2025 10:00 AM EDITORIAL INTERN Procedure visit [facility] Urology [facility] [address] [facility] 260 [place] [address] [place] [address] [facility] 260 [place] [address] 02/18/2025 10:00 AM EDITORIAL INTERN Procedure visit [facility] Urology [facility] [address] [facility] 260 [place] [address] 04/09/2025 2:00 PM EDITORIAL INTERN Office Visit [facility] Heart and Vascular - [address] [facility] [address] [address] [facility] 300 [place] [address] Nica Coronel, DANIEL [address] [facility] 300 [place] [address] 04/16/2025 11:00 AM EDITORIAL INTERN Appointment [facility] Services [address] [address] Saray Luu MD [address] [place] [address] 280 [place] [address] 04/23/2025 11:40 AM CDT Office Visit [facility] Pulmonology - [address] [address] Saray Luu MD [address] [place] [phone] 06/04/2025 11:20 AM CDT Office Visit [facility] Primary Care - [address] 200 [place] [address] Chiqui Gill MD [address] [place] [address] 07/13/2025 11:00 AM CDT Office Visit [address] [address] Chiqui Gill MD [address] [place] [address] documented as of this encounter Procedures [...] R/O COVID-19 01/07/2020 01/07/2020 01/10/2020 1:31 AM EDITORIAL INTERN R/O COVID-19 10/01/2020 10/01/2020 10/02/2020 1:37 AM CDT R/O COVID-19 03/08/2021 03/08/2021 03/09/2021 1:20 AM EDITORIAL INTERN COVID-19 03/08/2021 03/08/2021 04/07/2021 2:19 AM EDITORIAL INTERN R/O COVID-19 03/14/2022 03/14/2022 03/14/2022 9:28 PM EDITORIAL INTERN documented as of this encounter Care Teams Digital Assistant Relationship Specialty [place] [address] [address] PCP - General Internal Medicine 12/13/17 documented as of this encounter
--- OUTSIDE RECORDS SUMMARY | 2025-01-30 10:23 | XMS_ITS | Encounter Summary ---
Author Organization [facility] Address [address] [place] [address] Care Team Providers Care Game Author Name Role Phone Chiqui Gill MD Primary [...] PM CDT Legal Sex Female 5:25 AM FRUIT OR NUT FARMER Gender Identity Female 10/29/2024 6:24 PM CDT Sexual Orientation Not on file documented as of this encounter Plan of Treatment Upcoming Encounters Date Type Department Care Team (Late st Contact Info) Description 02/18/2025 10:00 AM FRUIT OR NUT FARMER Procedure visit [facility] Urology [facility] [address] [facility] 260 [place] [address] [place] [address] [facility] 260 [place] [address] 02/18/2025 10:00 AM FRUIT OR NUT FARMER Procedure visit [facility] Urology [facility] [address] [facility] 260 [place] [address] 04/09/2025 2:00 PM FRUIT OR NUT FARMER Office Visit [facility] Heart and Vascular - [address] [facility] 300 [address] [facility] 300 [place] [address] Nica Coronel, DANIEL [address] [facility] 300 [place] [address] 04/16/2025 11:00 AM FRUIT OR NUT FARMER Appointment [address] [address] Saray Luu MD [address] [place] [address] 280 [place] [address] 04/23/2025 11:40 AM CDT Office Visit [facility] Pulmonology - [address] [address] Saray Luu MD [address] [place] [address] 06/04/2025 11:20 AM CDT Office Visit [facility] Care [address] [address] Chiqui Gill MD [address] [place] [address] 07/13/2025 11:00 AM CDT Office Visit [address] [address] Chiqui Gill MD [address] [place] [address] documented as of this encounter Visit Diagnoses Diagnosis Aftercare for healing traumatic fracture of other bone- Primary documented in this encounter Additional Health Concerns Infection Onset Date Last Indicated Resolved Time R/O COVID-19 01/07/2020 01/07/2020 01/10/2020 1:31 AM FRUIT OR NUT FARMER R/O COVID-19 10/01/2020 10/01/2020 10/02/2020 1:37 AM CDT R/O COVID-19 03/08/2021 03/08/2021 03/09/2021 1:20 AM FRUIT OR NUT FARMER COVID-19 03/08/2021 03/08/2021 04/07/2021 2:19 AM FRUIT OR NUT FARMER R/O COVID-19 03/14/2022 03/14/2022 03/14/2022 9:28 PM FRUIT OR NUT FARMER documented as of this encounter Care Teams Game Author Relationship Specialty [place] [address] [phone] PCP - General Internal Medicine 12/13/17 documented as of this encounter
--- OUTSIDE RECORDS SUMMARY | 2025-01-30 10:23 | XMS_ITS | Encounter Summary ---
Author Organization [facility] Address [address] [place] [address] Care Team Providers Care [place]ard Machine Operator Name Role Phone Chiqui Gill MD Primary Care Provider [phone] Encounter Details Date Type Department Care Team (Late st Contact Info) Description 06/11/2000 Outpatient Historical [facility] Women's Health Medical [place] [address] [facility] [address] [address] William Mccrary MD NO ADDRESS ON FILE Social History Tobacco Use Types Packs/Day Years Used Date Smoking Tobacco: Never Assessed Comments Unknown Sex and Gender Information Value Date Recorded Sex Assigned at Female 10/29/2024 6:24 PM CDT Legal Sex Female 5:25 AM BLAST FURNACE AUXILIARIES SUPERVISOR Gender Identity Female 10/29/2024 6:24 PM CDT Sexual Orientation Not on file documented as of this encounter Plan of Treatment Upcoming Encounters Date Type Department Care Team (Late st Contact Info) Description 02/18/2025 10:00 AM BLAST FURNACE AUXILIARIES SUPERVISOR Procedure visit [facility] Urology [facility] [address] [place] [address] [place] [address] [facility] [address] [place] [address] 02/18/2025 10:00 AM BLAST FURNACE AUXILIARIES SUPERVISOR Procedure visit [facility] [address] [address] [place] [address] 04/09/2025 2:00 PM BLAST FURNACE AUXILIARIES SUPERVISOR Office Visit [facility] Heart and Vascular - [address] [facility] [address] [address] [place] [phone] Nica Coronel, ENGINE REPAIRER [address] [facility] 300 [place] [address] 04/16/2025 11:00 AM BLAST FURNACE AUXILIARIES SUPERVISOR Appointment [facility] Services [place] [phone] Saray Luu MD [address] [place] [address] 04/23/2025 11:40 AM CDT Office Visit [facility] Pulmonology - [address] [address] Saray Luu MD [address] [place] [address] 06/04/2025 11:20 AM CDT Office Visit [address] [address] Chiqui Gill MD [address] [place] [address] 07/13/2025 11:00 AM CDT Office Visit [address] [address] Chiqui Gill MD [address] [place] [address] documented as of this encounter Visit Diagnoses Not on filedocumented in this encounter Additional Health Concerns Infection Onset Date Last Indicated Resolved Time R/O COVID-19 01/07/2020 01/07/2020 01/10/2020 1:31 AM BLAST FURNACE AUXILIARIES SUPERVISOR R/O COVID-19 10/01/2020 10/01/2020 10/02/2020 1:37 AM CDT R/O COVID-19 03/08/2021 03/08/2021 03/09/2021 1:20 AM BLAST FURNACE AUXILIARIES SUPERVISOR COVID-19 03/08/2021 03/08/2021 04/07/2021 2:19 AM BLAST FURNACE AUXILIARIES SUPERVISOR R/O COVID-19 03/14/2022 03/14/2022 03/14/2022 9:28 PM BLAST FURNACE AUXILIARIES SUPERVISOR documented as of this encounter Care Teams [place]ard Machine Operator Relationship Specialty [place] [address] [address] PCP - General Internal Medicine 12/13/17 documented as of this encounter
--- OUTSIDE RECORDS SUMMARY | 2025-01-30 10:24 | XMS_ITS | Clinical Summary ---
Author Organization [facility] Address [address] [place] [address] Care Team Providers Care Knitting Machine Tender Name Role Phone Chiqui Gill MD Primary Care Provider [phone] Wilber Minaya MD Unavailable Source Comments [facility],non-owned Affiliates and Associated Physician Practices is amultiple site organization consisting of ambulatory clinics and hospital sitesin [place], [place], [place] and [place]. This disclosure is being madepursuant to the Care Everywhere program and may not contain all information available regarding this patient. Last updated 17.[facility] Allergies Active Allergy Reactions Criticality Noted Date [...] once daily 4 Active Continuous Glucose Sensor (Rethink AutismStyle Will 3 Sensor) [facility] USE TO MONITOR GLUCOSE CONTINUOUSLY. APPLY A [...] on file Legal Sex Female 6:12 AM SHELVER Gender Identity Not on file Sexual Orientation [...] age to complete this topic Insurance MEDICARE [facility] MEDICARE [facility] MEDICARE Care Teams Knitting Machine Tender Relationship Specialty Start Date End Date Chiqui Gill MD PCP - General 06/10/20 Wilber Minaya MD [address] [facility] [address] [place] [address] Pattern Weaver Pulmonary Disease 07/31/24
--- OUTSIDE RECORDS SUMMARY | 2025-01-30 10:24 | XMS_ITS | Clinical Summary ---
Author Organization [facility] [address] Address [address] [facility] [place] [address] Care Team Providers Care Director Of Community Education Name Role Phone Chiqui Gill MD Primary [...] 01/23/2018 Assessment & Plan (01/23/2018 11:10 AM MUSIC VIDEO PRODUCER): The patient is a 62-year-old right-handed female [...] 01/23/2018 Assessment & Plan (01/23/2018 11:11 AM MUSIC VIDEO PRODUCER): The patient is a 62-year-old right-handed female [...] on file Legal Sex Female 9:32 AM MUSIC VIDEO PRODUCER Gender Identity Not on file Sexual Orientation Not on file Last Filed Vital Signs Vital Sign Reading Time Taken Comments Blood Pressure 140/62 04/06/2018 10:40 AM MUSIC VIDEO PRODUCER Pulse 58 04/06/2018 10:40 AM MUSIC VIDEO PRODUCER Temperature 36.6 C (97.9 F) 04/06/2018 10:40 AM MUSIC VIDEO PRODUCER Respiratory Rate 18 04/06/2018 10:40 AM MUSIC VIDEO PRODUCER Oxygen Saturation 100% 04/06/2018 10:40 AM MUSIC VIDEO PRODUCER Inhaled Oxygen Concentration - - Weight 95.7 kg (211 lb) 04/05/2018 1:04 PM MUSIC VIDEO PRODUCER Height 157.5 cm (5' 2) 04/05/2018 1:04 PM MUSIC VIDEO PRODUCER Body Mass Index 38.59 04/05/2018 1:04 PM MUSIC VIDEO PRODUCER Plan of Treatment Not on file Insurance [employer] Advance Directives For more information, please contact: [phone] * Full Code (Latest Code Status on File) Date Activated Date Inactivated Comments 04/05/2018 6:16 PM 04/06/2018 4:57 PM * Full Code Date Activated Date Inactivated Comments 04/05/2018 6:07 PM 04/05/2018 6:16 PM Care Teams Director Of Community Education Relationship Specialty [place] [id number] [facility] [address] [place] [address] PCP - General 12/18/16
--- OUTSIDE RECORDS SUMMARY | 2025-01-30 10:24 | XMS_ITS | Clinical Summary ---
Author Organization [facility] Address [address] [place] [phone] Phone Care Team Providers Care Polymerization Helper Name Role Phone Chiqui Gill MD Primary Care Provider [phone] Allergies Active Allergy Reactions Criticality Noted Date [...] times daily. 20 Tablet 024 Active Insulin Sweet Water, Disposable, (BD Ultra-Fine Short Pen Needle) 31 [...] 025 Active fluticasone propionate (FLONASE) 50 mcg/spray [place], Suspension nasal inhalerIndication s:Post-nasal drip Administer 2 [...] disease, with long-term current use of insulin ([facility]),History of TIA (transient ischemic attack) Take 1 [...] disease, with long-term current use of insulin ([facility]),Neuropa thy Take 2 Capsules (150 mg) by [...] disease, with long-term current use of insulin ([facility]),Hyperte nsive heart disease with diastolic heart failure and stage 3a chronic kidney disease, unspecified HF chronicity ([facility]/HCC) Inject 0.25 mg by subcutaneous injection every 7 days. 9 mL 3 Active dapagliflozin propanediol (Farxiga) 10 mg TabletIndications :Type 2 diabetes mellitus with stage 3a chronic kidney disease, with long-term current use of insulin ([facility]),Hyperte nsive heart and chronic kidney disease with heart failure and stage 1 through stage 4 chronic kidney disease, or chronic kidney disease ([facility]/HCC),Chronic heart failure with preserved ejection fraction (HFpEF) ([facility]),Current use of insulin ([facility]) Take 1 Tablet (10 mg) by mouth [...] disease, with long-term current use of insulin ([facility]/HCC),Neuropa thy TAKE 2 CAPSULES (150 MG) BY MOUTH 2 TIMES DAILY. 180 Capsule 025 2024 Discontinued(R eorder) Active Problems Patient Care Coordination No te Formatting of this note migh t be different from the original. Nebulizer-pt owns CARDIOLOGY - Ruddy Combs MD, FAC, [facility] [address] Direct Team Line: [phone] P: [phone] F: [phone] Problem Noted Date Diagnosed Date Morbid obesity with body mass index of 40.0-49.9 01/09/2025 Lower leg edema 10/30/2024 Overview (10/30/2024): 10/30/24: Patient not taking lasix, she is a junior high school principal. Encouraged to wear stockings, elevate legs. Assessment [...] PTSD (post-traumatic stress disorder) 11/27/2017 Atherosclerosis of [place] co ronary artery of [place] heart without angina pectoris 11/27/2017 Asthma-COPD overlap [...] Department Care Team Description 01/29/2025 10:00 AM CHIEF COOK Office Visit [facility] [address] [place] [address] Chiqui Gill MD Type 2 [...] (CMS/HCC); Common variable immunodeficiency (CMS/HCC); Atherosclerosis of [place] coronary artery of [place] heart without angina pectoris; Chronic heart failure with preserved ejection fraction (HFpEF) (CMS/HCC); Current use of insulin (CMS/HCC); Asthma-COPD overlap syndrome (CMS/HCC); Hypertensive heart disease with diastolic heart failure and stage 3a chronic kidney disease, unspecified HF chronicity (CMS/HCC) 01/27/2025 External Device Data [facility] ABSTRACTION Provider, Abstract 01/27/2025 External Device Data [facility] ABSTRACTION Provider, Abstract [facility] [address] [place] [address] Chiqui Gill MD Type 2 diabetes mellitus with stage 3a chronic kidney disease, with long-term current use of insulin (CMS/HCC); Neuropathy 01/21/[address] [place] [address] Chiqui Gill MD Type 2 diabetes mellitus with stage 3a chronic kidney disease, with long-term current use of insulin (CMS/HCC); Neuropathy 01/20/2025 Nurse Triage [address] [place] [address] Chiqui Gill MD 01/19/2025 Results Follow-Up [address] [place] [address] Chiqui Gill MD CBC WITH DIFFERENTIAL, MICROALBUMIN/CREATININE RATIO, RANDOM UR, HEMOGLOBIN A1C, Additional followed-up results: 3 01/19/[address] [place] [address] Chiqui Gill MD 01/18/[address] [address] Chiqui Gill MD 01/10/[address] [address] Chiqui Gill MD 01/09/2025 2:20 PM CHIEF COOK Office Visit [address] [address] Chiqui Gill MD Type 2 diabetes mellitus [...] Current use of insulin (CMS/HCC); Atherosclerosis of [place] coronary artery of [place] heart without angina pectoris; Asthma-COPD overlap syndrome ([facility]) 12/23/[address] [place] [address] Chiqui Gill MD NSTEMI (non-ST elevated myocardial infarction) ([facility]); Mixed hyperlipidemia; Aortic atherosclerosis; Type 2 diabetes mellitus with stage 3a chronic kidney disease, with long-term current use of insulin ([facility]); H/O TIA (Plavix & ASA) 12/23/2024 Results Follow-Up [address] [place] [address] Chiqui Gill MD URINALYSIS WITH REFLEX CULTURE 12/19/[address] [facility] Urology [address] [place] [address] Sarahy Gibbs MD Patient Communication 12/11/2024 10:51 AM CDT - 12/11/2024 11:59 PM CDT Hospital Encounter [facility] at [address] [place] [address] Chiqui Gill MD Discharge Disposition: Home or Self Care 12/11/2024 10:51 AM CDT - 12/11/2024 11:59 PM CDT Hospital Encounter [facility] at [address] [place] [address] Chiqui Gill MD Discharge Disposition: Home or Self Care 12/11/2024 Results Follow-Up [address] [place] [address] Chiqui Gill MD XR DEXA BONE DENSITY AXIAL 1 OR MORE SITES, MAMMO 3D GUMARO SCREEN BILAT W OR WO CAD 12/07/[address] [place] [address] Chiqui Gill MD Type 2 diabetes mellitus with stage 3a chronic kidney disease, with long-term current use of insulin ([facility]); Neuropathy 12/06/2024 Refill [facility] [id number] [place] [address] [address] [place] [address] Chiqui Gill MD 12/03/2024 Results Follow-Up [address] [place] [address] Chiqui Gill MD URINALYSIS WITH REFLEX CULTURE, URINE CULTURE 12/02/[address] [facility] Orthopedics - [address] [place] [address] Provider, Abstract 11/25/[address] [place] [address] Chiqui Gill MD Referral Request 11/19/[address] [place] [address] Chiqui Gill MD 11/15/2024 Patient Self-Triage [address] [place] [address] 10/31/[address] [place] [address] Chiqui Gill MD NSTEMI (non-ST elevated myocardial infarction) ([facility]); H/O TIA (Plavix & ASA) from Last 3 Months Immunizations Immunization Administration Dates Next Due (ADACEL/BOOSTRIX)(10 YR UP) TDAP VACCINE, 0.5ML, IM 04/15/2019 (AREXVY)(60 YR UP) RSV, DEMIAN MBINANT, PROTEIN SUBUNIT RSVPREF, ADJUVANT RECONSTITUTED, 0.5 ML, PF 12/22/2022 (PFIZER JESSIAK)(12 YR UP PRIMA RY SERIES) COVID-19 VACCINE - EMERGENCY USE AUTHORIZATION, MRNA, JESSIKA(PF) 30 MCG/0.3 ML IM SUSP 10/26/2023 (PFIZER)(12 YR UP) COVID-19 VACCINE - EMERGENCY USE AUTHORIZATION, MRNA, [id number](PF) 30 MCG/0.3 ML IM SUSP 11/06/2022,10/06/2020,04/17/2020,03/28 (PNEUMOVAX 23)(50 YRS UP) PN EUMOCOCCAL POLYSACCHARIDE (PPV23) 0.5 ML, IM 01/16/2022,11/21/2020,09/05/2019 (PREVNAR 20)(6 WKS UP) PNEUM OCOCCAL CONJUGATE VACCINE 20-VALENT (PCV20), POLYSACCHARIDE MIM520 CONJUGATE, ADJUVANT 0.5 ML (PF) IM 09/25/2023 [...] Father Dante Passed Oct.21 Other Father Dante [place] Stroke Father Dante Heart Condition , Clogged [...] PM CDT Legal Sex Female 5:25 AM CHIEF COOK Gender Identity Female 10/29/2024 6:24 PM CDT Sexual Orientation Not on file Last Filed Vital Signs Vital Sign Reading Time Taken Comments Blood Pressure 140/62 01/29/2025 9:36 AM CHIEF COOK Pulse 61 01/29/2025 9:36 AM CHIEF COOK Temperature 36.2 C (97.1 F) 01/29/2025 9:36 AM CHIEF COOK Respiratory Rate 18 10/17/2024 10:26 AM CDT Oxygen Saturation 94% 01/29/2025 9:36 AM CHIEF COOK Inhaled Oxygen Concentration - - Weight 98.9 kg (218 lb) 01/29/2025 9:36 AM CHIEF COOK Height 154.9 cm (5' 1) 01/29/2025 9:36 AM CHIEF COOK Body Mass Index 41.19 01/29/2025 9:36 AM CHIEF COOK Plan of Treatment Upcoming Encounters Date Type Department Care Team (Late st Contact Info) Description 02/18/2025 10:00 AM CHIEF COOK Procedure visit [facility] Urology [facility] [id number] [place] [address] [address] [place] [address] [place] [address] [facility] [address] [place] [address] 02/18/2025 10:00 AM CHIEF COOK Procedure visit [facility] Urology [facility] [id number] [place] [address] 04/09/2025 2:00 PM CHIEF COOK Office Visit [facility] Heart and Vascular - [address] [facility] [address] [address] [place] [address] [place] [address] [facility] [address] [place] [address] 04/16/2025 11:00 AM CHIEF COOK Appointment [facility] Imaging Services [address] [address] Saray Luu MD [address] [place] [address] 04/23/2025 11:40 AM CDT Office Visit [facility] Pulmonology - [address] [address] Saray Luu MD [address] [place] [address] 06/04/2025 11:20 AM CDT Office Visit [facility] Primary Care - [address] [address] Chiqui Gill MD [address] [place] [address] 07/13/2025 11:00 AM CDT Office Visit [facility] Primary Care - [address] [address] Chiqui Gill MD [address] [place] [address] Health Maintenance Due Date Last Done [...] history exists Medical Devices Implanted Type Area Computer Typesetter Keyliner Device Identifier Shelf Expiration Date Model / Serial / Lot Kalie Britton [id number] - [id number] Implanted:Qty : 1 on 12/29/2014 by Ke Morel MD at [facility] N/A: Bladder AMS [facility] [employer] 06/30/2017 [id number] / / [id number] Description:[facility]#[id number] Procedures Procedure Name Priority Date/Time Associated Diagnosis Comments LDL CHOLESTEROL, DIRECT Routine 01/19/2025 9:47 AM CHIEF COOK Type 2 diabetes mellitus with stage 3a chronic kidney disease, with long-term current use of insulin (CMS/HCC) Mixed hyperlipidemia Atherosclerosis of [place] coronary artery of [place] heart without angina pectoris TSH REFLEXIVE Routine 01/19/2025 9:47 AM CHIEF COOK Type 2 diabetes mellitus with stage 3a chronic kidney disease, with long-term current use of insulin (CMS/HCC) Mixed hyperlipidemia COMPREHENSIVE METABOLIC PANEL Routine 01/19/2025 9:47 AM CHIEF COOK Type 2 diabetes mellitus with stage 3a chronic kidney disease, with long-term current use of insulin (CMS/HCC) Hypertensive heart and chronic kidney disease with heart failure and stage 1 through stage 4 chronic kidney disease, or chronic kidney disease (CMS/HCC) CBC WITH DIFFERENTIAL Routine 01/19/2025 9:47 AM CHIEF COOK Type 2 diabetes mellitus with stage 3a chronic kidney disease, with long-term current use of insulin (CMS/HCC) Hypertensive heart and chronic kidney disease with heart failure and stage 1 through stage 4 chronic kidney disease, or chronic kidney disease (CMS/HCC) HEMOGLOBIN A1C Routine 01/19/2025 9:47 AM CHIEF COOK Type 2 diabetes mellitus with stage 3a chronic kidney disease, with long-term current use of insulin (CMS/HCC) MICROALBUMIN/CREATINI NE RATIO, RANDOM UR Routine 01/19/2025 9:47 AM CHIEF COOK Type 2 diabetes mellitus with stage 3a chronic kidney disease, with long-term current use of insulin (CMS/HCC) Hypertensive heart and chronic kidney disease with heart failure and stage 1 through stage 4 chronic kidney disease, or chronic kidney disease (CMS/HCC) URINALYSIS WITH REFLEX CULTURE Routine 12/22/2024 11:32 AM CHIEF COOK UTI symptoms MAMMO 3D GUMARO SCREEN BILAT [...] Results * TSH REFLEXIVE (01/19/2025 9:47 AM CHIEF COOK) TSH 0.49 0.40 - 4.50 mIU/L [facility] claudette Gutierrez Comment: FASTING:YES FASTING: YES Test Performed at: [facility] [address] [place] [address] Abiodun Ramos Vo Blood 01/19/2025 9:47 AM CHIEF COOK 01/19/2025 9:47 AM CHIEF COOK us Chiqui Gill MD CHEMISTRY ORDERABLES Final Resul t [facility] [phone] [place] [address] [place] [address] * (ABNORMAL) MICROALBUMIN/CREATININE RATIO, RANDOM UR (01/19/2025 9:47 AM CHIEF COOK) CREATININE, URINE 94 20 - 275 mg/dL [...] category. FASTING:YES FASTING: YES Test Performed at: [facility] [address] [address] Abiodun Lemon MD Urine URINE SPECIMEN OBTAINED BY CLEAN CATCH PROCEDURE / Unknown 01/19/2025 9:47 AM CHIEF COOK 01/19/2025 9:47 AM CHIEF COOK us Chiqui Gill MD URINE ORDERABLES Final Result [facility] [phone] [facility] [address] [address] * (ABNORMAL) CBC WITH DIFFERENTIAL (01/19/2025 9:47 AM CHIEF COOK) WBC 6.7 3.8 - 10.8 Thousand/ uL [...] Comment: FASTING:YES FASTING: YES Test Performed at: [facility] [address] [place] [address] Abiodun Lemon Blood 01/19/2025 9:47 AM CHIEF COOK 01/19/2025 9:47 AM CHIEF COOK Chiqui Gill MD HEMATOLOGY ORDERABLES Final Resu lt [facility] [phone] [facility] [place] [address] [place] [address] * LDL CHOLESTEROL, DIRECT (01/19/2025 9:47 AM CHIEF COOK) LDL CHOLESTEROL, DIRECT 10 <100 mg/dL [facility] Comment: Greatly elevated Triglycerides values (>1200 mg/dL) interfere with the dLDL assay. Desirable range <100 mg/dL for primary prevention; <70 mg/dL for patients with CHD or diabetic patients with > or = 2 CHD risk factors. FASTING:YES FASTING: YES Test Performed at: [facility] [address] [place] [address] [facility] Claudette Lemon MD Blood 01/19/2025 9:47 AM CHIEF COOK 01/19/2025 9:47 AM CHIEF COOK Chiqui Gill MD CHEMISTRY ORDERABLES Final Resul t Performing Organization Address City/State/ZIP Co me Phone Number [facility] [phone] [facility] [address] * (ABNORMAL) HEMOGLOBIN A1C (01/19/2025 9:47 AM CHIEF COOK) HEMOGLOBIN A1C 8.3(H) <5.7 % of total [...] children. ESTIMATED AVERAGE GLUCOSE (MG/DL) 192 mg/dL [facility] claudette Gutierrez ESTIMATED AVERAGE GLUCOSE (MMOL/L) 10.6 mmol/L [facility] claudette Gutierrez Comment: FASTING:YES FASTING: YES Test Performed at: [facility] [address] [place] [address] Abiodun Lemon Blood 01/19/2025 9:47 AM CHIEF COOK 01/19/2025 9:47 AM CHIEF COOK us Chiqui Gill MD CHEMISTRY ORDERABLES Final Resul t [facility] [phone] [facility] [address] [place] [address] * (ABNORMAL) COMPREHENSIVE METABOLIC PANEL (01/19/2025 9:47 AM CHIEF COOK) GLUCOSE 109(H) 65 - 99 mg/dL [facility] wilkins Matt Comment: Fasting reference interval For someone without known diabetes, a glucose value between 100 and 125 mg/dL is consistent with prediabetes and should be confirmed with a follow-up test. BUN 16 7 - 25 mg/dL [facility] claudette Gutierrez CREATININE 1.01(H) 0.60 - 1.00 mg/dL [facility] claudette Gutierrez GFR 60 > OR = 60 mL/min/1. 73m2 [facility] claudette Gutierrez BUN/CREAT RATIO 16 6 - 22 (calc) [facility] claudette Gutierrez SODIUM 142 135 - 146 mmol/L [facility] claudette Gutierrez POTASSIUM 4.3 3.5 - 5.3 mmol/L [facility] claudette Gutierrez CHLORIDE 102 98 - 110 mmol/L [facility] claudette Gutierrez CO2 34(H) 20 - 32 mmol/L [facility] claudette Gutierrez CALCIUM 9.6 8.6 - 10.4 mg/dL [facility] TOTAL PROTEIN 7.1 6.1 - 8.1 g/dL [facility] ALBUMIN 4.3 3.6 - 5.1 g/dL [facility] GLOBULIN 2.8 1.9 - 3.7 g/dL (calc) [facility] ALBUMIN/GLOBULIN RATIO 1.5 1.0 - 2.5 (calc) [facility] BILIRUBIN TOTAL 0.3 0.2 - 1.2 mg/dL [facility] ALKALINE PHOSPHATASE 88 37 - 153 U/L [facility] AST 21 10 - 35 U/L [facility] ALT 25 6 - 29 U/L [facility] Comment: FASTING:YES FASTING: YES Test Performed at: [place] [address] [place] [address] MarizaImmanuel Lemon Blood 01/19/2025 9:47 AM CHIEF COOK 01/19/2025 9:47 AM CHIEF COOK us Chiqui Gill MD CHEMISTRY ORDERABLES Final Resul t [facility] [phone] [place] [address] [place] [address] * URINALYSIS WITH REFLEX CULTURE (12/22/2024 11:32 AM CHIEF COOK) Only the most recent of2 resultswithin the time period is included. COLOR UA YELLOW YELLOW [facility] CLARITY UA CLEAR CLEAR [facility] SPECIFIC GRAVITY UA 1.009 1.001 - 1.035 [facility] PH UA 7.0 5.0 - 8.0 [facility] GLUCOSE UA NEGATIVE NEGATIVE [facility] BILIRUBIN UA NEGATIVE NEGATIVE [facility] KETONES UA NEGATIVE NEGATIVE [facility] BLOOD UA NEGATIVE NEGATIVE [facility] PROTEIN UA NEGATIVE NEGATIVE [facility] NITRITE UA NEGATIVE NEGATIVE [facility] LEUKOCYTE ESTERASE UA NEGATIVE NEGATIVE [facility] WBC UA NONE SEEN < OR = 5 /HPF [facility] RBC UA NONE SEEN < OR = 2 /HPF [facility] EPITHELIAL CELLS, URINE 0-5 < OR = 5 /HPF [facility] BACTERIA UA NONE SEEN NONE SEEN /HPF [facility] HYALINE CAST NONE SEEN NONE SEEN /LPF [facility] URINE NOTE [facility] Comment: This urine was analyzed for the presence of WBC, RBC, bacteria, casts, and other formed elements. Only those elements seen were reported. URINE CULTURE [facility] Comment: NO CULTURE INDICATED FASTING:NO FASTING: NO Test Performed at: [place] [address] [place] [address] Abiodun Ramos Vo Urine URINE SPECIMEN OBTAINED BY CLEAN CATCH PROCEDURE / Unknown 12/22/2024 11:32 AM CHIEF COOK 12/22/2024 11:32 AM CHIEF COOK us Chiqui Gill MD URINE ORDERABLES Final Result [facility] [phone] [place] [address] [place] [address] * MAMMO 3D GUMARO SCREEN BILAT W [...] screening mammogram in one year. DICTATION LOCATION: [facility] Narrative 12/11/2024 12:18 PM CDT BILATERAL FULL-FIELD [...] refer to the full report available in [facility] under the PACS Images tab. If a faxed copy is needed, please call [phone]. DICTATION LOCATION: [facility] Narrative 12/11/2024 12:11 PM CDT SUMMARY DEXA [...] refer to the full report available in [facility] under the PACS Images tab. If a faxed copy is needed, please call [phone]. DICTATION LOCATION: [facility] us Chiqui Gill MD DIAGNOSTIC IMAGING ORDERABLES Fi nal Result * (ABNORMAL) URINE CULTURE (12/02/2024 12:35 PM CDT) URINE CULTURE SEE NOTE(A) [facility] Comment: CULTURE, URINE, ROUTINE Micro Number: [id number] Test Status: Final Specimen Source: Urine Specimen [...] loracarbef. FASTING:NO FASTING: NO Test Performed at: [facility] [address] [place] [address] [facility] 12/02/2024 12:3 5 PM CDT 12/02/2024 12:35 PM CDT Chiqui Gill MD MICROBIOLOGY - GENERAL ORDERABLE S Final Result [facility] [phone] [facility] [address] [place] [address] * HM DIABETES EYE EXAM (09/26/2024 9:53 AM CDT) Siena Aaron OD HEALTH MAINTENANCE Final Result [facility] - [facility] CLIA# [id number] [address] [facility] [address] [place] [address] * COLONOSCOPY REPORT (05/05/2024 10:57 AM CDT) Narrative Procedure Note Joseline Cortez MD - 05/05/2024 10:57 AM CDT [facility] Endoscopy Patient Name: Sarah Newby [...] previously scheduled. Procedure Code(s): --- Professional --- 31206, Colonoscopy, flexible; with removal of tumor(s), polyp(s), or other lesion(s) by snare technique 86418, 59, Colonoscopy, flexible; with biopsy, single or multiple CPT copyright 2020 [employer]. All rights reserved. The codes documented in this report are preliminary and upon opal polisher review may be revised to meet current compliance requirements. Joseline Cortez MD 05/05/2024 10:57:13 AM This report has been signed electronically. Number of Addenda: [phone] [place] [address] Joseline Cortez MD GI PROCEDURE O RDERABLES Final Result from Last 3 Months or Most Recently Relevant to Health Maintenance Insurance [facility] RX MEDIMPACT Member Subscriber Plan / Payer (Ef fective 2017-Present) Name:Sarah Newby Relation to Subscriber:Self Name:Sarah Newby Payer ID:Not on file Group ID:[id number] Type:RX Medicare Part D Address: [address] [facility] MCR Advance Directives For more information, please contact: [phone] * Full Code (Latest Code Status on [...] 6:35 AM 12/26/2017 4:56 PM Care Teams Polymerization Helper Relationship Specialty [place] [address] [address] PCP - General Internal Medicine 12/13/17
== END 2025-01-30 10:22 | disposition home or self-care (01) ==
PROVIDERS: Emergency Provider Nurse Practitioner Family
DX: S60.222A Contusion of left hand, initial encounter (principal); E03.9 Hypothyroidism, unspecified; E78.5 Hyperlipidemia, unspecified; E11.9 Type 2 diabetes mellitus without complications; Z79.4 Long term (current) use of insulin; Z79.82 Long term (current) use of aspirin; W22.09XA Striking against other stationary object, initial encounter
CPT/HCPCS: 73130; 99283; A9270